=== PATIENT | female | born 1945 | race Caucasian/White ===

== ENCOUNTER → 2023-01-19 13:54 | Outpatient (CLI) | payer MEDICARE, SELFPAY ==
--- NOTE | ~2023-01-19 | XR_ITS ---
EXAM: XR lumbar spine min 4V DATE: 01/19/2023 14:29 HISTORY: M54.41 - Lumbago with sciatica, right side . COMPARISON: None available. FINDINGS: Cholecystomy clips. Left upper quadrant vascular calcification. 5 nonrib-bearing lumbar-typ e vertebral bodies. Pedicles intact. Normal vertebral body alignment. Vertebral body heights preserve d. Degenerative narrowing with marginal osteophytosis at all lumbar levels, severe at L4-5 and L5-S1. Moderate lower lumbar facet sclerosis and hypertrophy with interspinous narrowing. No fracture or di slocation. Incidental note of flowing ossification of the anterior longitudinal ligament thoracic spi ne as can be seen with DISH. IMPRESSION: Multilevel lumbar degenerative disc disease, severe at L4-5 and L5-S1. Moderate lower lum bar facet arthropathy. Reviewed, dictated and finalized at location K. IMPRESSION: Multilevel lumbar degenerative disc disease, severe at L4-5 and L5- S1. Moderate lower lumbar facet arthropathy.
== END ==
PROVIDERS: PCP Family Medicine; Visit Provider Family Medicine
DX: M54.41 Lumbago with sciatica, right side (principal); M51.36 Other intervertebral disc degeneration, lumbar region; M51.37 Other intervertebral disc degeneration, lumbosacral region
CPT/HCPCS: 72110

== ENCOUNTER → 2023-02-16 10:48 | Outpatient (CLI) | payer MEDICARE, SELFPAY ==
--- NOTE | ~2023-02-16 | MR_ITS ---
EXAMINATION: MR lumbar spine wo con DATE: 02/16/2023 11:41 INDICATION: Lumbago sciatica, right-sided. TECHNIQUE: Magnetic resonance imaging (MRI) of the lumbar spine was performed without intravenous con trast. Sequences included sagittal T2-weighted FSE, sagittal T2-weighted FS FSE, sagittal T1-weighted FSE, and axial T2-weighted FSE. COMPARISON: Lumbar spine radiographs 01/19/2023 FINDINGS: There is 7 degrees dextrocurvature of lumbar spine. There is 3 mm retrolisthesis of L3 on L 4. Vertebral body heights are normal. There is mildly decreased disc height at L1-L2 and L2-L3. There is severely decreased disc height from L3-L4 through L5-S1 with endplate remodeling. The distal spin al cord signal intensity is normal. The conus medullaris is at L1. The following disc levels are spec ifically discussed: L1-L2: The disc is bulging. There is mild bilateral facet joint osteoarthritis. There is mild bilater al neural foraminal stenosis. There is mild central canal stenosis. L2-L3: The disc is bulging. There is moderate bilateral facet joint osteoarthritis. There is mild yennifer ateral neural foraminal stenosis. There is mild central canal stenosis. L3-L4: The disc is bulging with superimposed right foraminal and subarticular zone extrusion. There i s severe bilateral facet joint osteoarthritis. There is moderate bilateral neural foraminal stenosis. There is moderate central canal stenosis. There is severe stenosis of right lateral recess. L4-L5: The disc is bulging. There is severe bilateral facet joint osteoarthritis. There is moderate r ight and mild left neural foraminal stenosis. There is mild central canal stenosis. L5-S1: The disc is bulging. There is severe bilateral facet joint osteoarthritis. There is moderate r ight and mild left neural foraminal stenosis. There is mild central canal stenosis. IMPRESSION: 1. Severe lumbar spondylosis. Reviewed, dictated and finalized at location A.
== END ==
PROVIDERS: PCP Family Medicine; Visit Provider Family Medicine
DX: M54.41 Lumbago with sciatica, right side (principal); M47.896 Other spondylosis, lumbar region
CPT/HCPCS: 72148

== ENCOUNTER 2023-03-13 09:28 | Inpatient (IN) | payer MEDICARE, SELFPAY ==
--- NOTE | ~2023-03-13 | MR_ITS ---
MRI of the brain Clinical History: Left-sided numbness and foot drop Technique: Axial and sagittal T1-weighted images were acquired. These were followed by axial T2-weigh bebeto, diffusion weighted, gradient, and FLAIR images. Findings: No acute infarct, intracranial hemorrhage, or mass lesion. There are mild chronic microvasc ular ischemic changes in the periventricular white matter bilaterally. Ventricles and subarachnoid spaces are unremarkable. Orbits are unremarkable. Paranasal sinuses and m astoid air cells are clear. Major intracranial flow voids are grossly intact. Sagittal midline structures are intact. IMPRESSION: No acute infarct, intracranial hemorrhage, or mass lesion. Mild chronic microvascular ischemic changes. Reviewed, dictated and finalized at location .
--- NOTE | ~2023-03-13 | XR_ITS ---
EXAMINATION: XR fluoroscopy no charge INDICATION: L3-4 microdiscectomy TECHNIQUE: A single intraoperative fluoroscopic image is submitted for review. Total fluoroscopic mary e was 1.4 seconds COMPARISON: None available FINDINGS: A lateral fluoroscopic image of the lower lumbar spine demonstrates a surgical instrument p osterior to the L3-4 disc space. Please refer to procedure note for full details. IMPRESSION: 1. Please refer to procedure note for full details. Reviewed, dictated and finalized at location F.
--- NOTE | ~2023-03-13 | XR_ITS ---
EXAMINATION: XR chest 1V portable DATE: 03/13/2023 14:00 INDICATION: Low back pain. TECHNIQUE: A single frontal view of the chest was obtained. COMPARISON: Chest 2 views 01/12/2006 FINDINGS: There is no pneumonia, pleural effusion, or pneumothorax. The heart size is normal. Surgica l clips in the right upper quadrant are likely from cholecystectomy. IMPRESSION: 1. No acute cardiopulmonary disease. Reviewed, dictated and finalized at location A.
[2023-03-13 11:08] VITALS: BP 150/85; PULSE 92; RESP 18; TEMP 36.4; O2SAT 98
--- NOTE | 2023-03-13 13:33 | ED.BACK ---
HPI - Back Pain/Injury General Chief Complaint: Back Pain/Injury Stated Complaint: back pain Time Seen by Provider: 03/13/23 12:18 Source: patient, family and EMS Mode of arrival: EMS Limitations: no limitations History of Present Illness HPI Narrative: 77 years old white female with history of chronic lower back pain. For months/years. Got worse over the last few weeks. Patient had recent MRI of the lumbar spine on February 16, 2023, which showed severe lumbar spondylosis. Patient had a referral to a neurosurgeon, also have a referral to a pain management physician, patient supposed to be on physical therapy but is telling me that she cannot do it because she cannot stand up and walk to go to the car to go to the physical therapy. Currently patient is on gabapentin, ibuprofen, hydrocodone, buspirone, paroxetine. patient denies bowel dysfunction, bladder dysfunction, altered sensation, focal weakness, or saddle numbness, Related Data Allergies Allergy/AdvReac Type Severity Reaction Status Date / Time No Known Allergies Allergy Mild Verified 03/13/23 18:40 Review of Systems Review of Systems: All systems reviewed & are unremarkable except as noted in HPI and below PMFSH Past Medical History Medical History Papilloma of breast (~2013) Surgical History Surgical History History of section Hx of cholecystectomy (~2005) Family History Family History Mother Carcinoma of colon Father Family history of coronary artery disease Other Family history of cardiovascular disease Social History Social History Smoking status: Never smoker Alcohol intake: never Substance use: never Lack of Transportation: No Lack of Food: Never True Current Housing: I Have Housing Concerned About Future Housing: No Difficulty Paying Gas/Electric Bills: No Difficulty Paying for Meds: No Currently Unemployed: No Education: Don't Know Difficulty w/ Childcare or Family Care: No Spiritual care concerns: No Exam Narrative: General appearance: Well-developed, well-nourished, sitting on a wheelchair Skin: Normal color Head: Normocephalic, nontraumatic Eyes: Clear conjunctiva ENT: Oropharynx normal, ears normal, nose normal Neck: Supple, nontender Chest and respiratory: Airway patent, no respiratory distress, no accessory muscle use Heart: Regular rate/rhythm Abdomen: Soft, nontender, no organomegaly, quiet bowel sounds Vascular: Normal peripheral pulses, normal capillary refill. Musculoskeletal: Severe tenderness across the lumbar area mainly mid line, no bruises, no swelling or rash Neurologic: Alert and oriented ?3, negative leg raising test bilateral Course Consultations Consultation #1: Dr. Quintanilla Requested patient to go home to see him in the office tomorrow. Date: 03/13/23 Time: 16:56 Vital Signs Vital signs: Vital Signs Temperature 36.4 C 03/13/23 11:08 Pulse Rate 92 03/13/23 11:08 Respiratory Rate 18 03/13/23 11:08 Blood Pressure 150/85 H 03/13/23 11:08 Pulse Oximetry 98 03/13/23 11:08 Oxygen Delivery Room Air 03/13/23 11:08 Temperature 37.1 C 03/13/23 18:26 Pulse Rate 86 03/13/23 18:26 Respiratory Rate 22 H 03/13/23 18:26 Blood Pressure 186/88 H 03/13/23 19:05 Pulse Oximetry 96 03/13/23 18:26 Oxygen Delivery Room Air 03/13/23 11:08 MDM - Back Pain/Injury MDM Narrative Medical decision making narrative: Patient presents with aggravation of chronic l
[2023-03-13] MEDS: ONDANSETRON INJ 4 MG/2 ML VIAL IV PUSH (14:08)
[2023-03-13] MEDS: SODIUM CHLORIDE 0.9% IV 1,000 ML 999 ML IV CONT (14:08)
[2023-03-13] MEDS: HYDROmorphone HCL INJ (*CRX) 1 MG/ML SYR 0.5 MG IV PUSH ×3 (14:09→21:28)
[2023-03-13 14:16] LABS: Basophils Absolute Auto 0.1 K/mm3 (0.0-0.1); Basophils Percent Auto 0.7 % (0.2-1.2); Eosinophils Absolute Auto 0.4 K/mm3 (0-0.3); Eosinophils Percent Auto 5.8 % (0-4.4); Immature Granulocyte Absolute 0.05 K/mm3 (0.00-0.031); Immature Granulocyte Percent A 0.7 % (0-0.5); Lymphocytes Absolute Auto 1.74 K/mm3 (0.9-3.2); Lymphocytes Percent Auto 22.8 % (18.3-44.2); Mean Corpuscular HGB Conc 32.5 g/dl (32-36); Mean Corpuscular Volume 95.5 fl (80-100); Monocytes Absolute Auto 0.5 K/mm3 (0.1-0.6); Monocytes Percent Auto 5.9 % (2.6-8.5); Neutrophils Absolute Auto 4.9 K/mm3 (1.3-6.7); Neutrophils Percent Auto 64.1 % (45.5-73.1); Platelet Count Result 423 k/mm3 (150-375); Red Blood Count 4.19 M/mm3 (4.2-5.4); Red Cell Distribution Width 13.1 % (11.5-14.5); White Blood Count 7.6 K/mm3 (4.5-10.0)
--- NOTE | 2023-03-13 14:20 | PC.NURSE ---
pt wheeled to bathroom and with help of 2 person assist pt able to use bathroom to collect ua specimen. pt appears to have muscle spasms with any turning of torso. pt does note some relief of pain s/p administration of dilaudid.
[2023-03-13 14:29] LABS: Alanine Aminotransferase 26 U/L (6-35); Alkaline Phosphatase 100 U/L (38-126); Anion Gap 10 mmol/L (8-16); Aspartate Amino Transferase 25 U/L (14-36); Bilirubin,Total 0.5 mg/dL (0.2-1.3); Blood Urea Nitrogen 14 mg/dL (7-17); CRP 0.7 mg/dL (<1.0); Calcium 9.3 mg/dL (8.4-10.2); Carbon Dioxide 25 mmol/L (22-30); Chloride 102 mmol/L (98-107); Estimated CRCL calculation 52 ml/min; Estimated Glomerular Filt Rate > 60; Glucose 199 mg/dL (65-110); Potassium 3.7 mmol/L (3.4-5.0); Sodium 137 mmol/L (137-145)
[2023-03-13 14:45] LABS: Creatine Kinase 114 U/L (30-135)
[2023-03-13 14:48] LABS: Erythrocyte Sedimentation Rate 55 mm/hr (0-20)
[2023-03-13 14:51] LABS: Appearance Urine Clear (Clear); Bacteria Urine None Seen /hpf; Bilirubin Urine Negative (Negative); Blood Urine Negative (Negative); Color Urine Yellow (Yellow); Glucose Urine UA Negative (Negative); Ketones Urine Trace mg/dL (Negative); Leukocyte Esterase Ur Negative LEU/UL (Negative); Nitrate Urine Negative (Negative); Protein Urine 1+ mg/dL (Negative); RBC Urine 0-2 /hpf (0-2); Squamous Epithelial Cell Urine Occasional /hpf (Few); Urobilinogen Urine 0.2 mg/dL (<2.0); WBC Urine 0-5 /hpf
[2023-03-13 14:57] LABS: Add Urine Microscopic? YES
--- NOTE | 2023-03-13 15:49 | PCCCNOTE ---
Called to ED for temporary snf placement due to pt unable to ambulate due to extreme back pain. Pt has [facility] and no qualifying 3 night stay. Pt and granddaughter informed that [facility] would only cover the PT/OT portion of SNF and rooom and board would need to be covered by pt. Pt understands and is agreeable to this. [facility] at [facility] contacted and info sent. Room rate is 411/day and [id number] per month. Lance stated that she would contact me back and am awaiting. Niyah at [facility] has only semi private room available at 260/day. Private suite cost is 275/day but none available at this time. Pt would like [facility]. Awaiting call back by Lance.
[2023-03-13 17:38] VITALS: BP 180/65
[2023-03-13] MEDS: SODIUM CHLORIDE 0.9% IV 1,000 ML 100 ML IV CONT (18:12)
[2023-03-13 18:15] VITALS: BMI 34.4
[2023-03-13 18:26] VITALS: BP 205/88; PULSE 86; RESP 22; TEMP 37.1; O2SAT 96
--- NOTE | 2023-03-13 18:29 | ADMGEN ---
This patient, Izabela Crook, was admitted to 3 [facility] Surg Room 316-01. Patient/family oriented to hospital policies and general routines including ID bracelet, bed and alarms, visiting hours, pain management, procedures, bathroom and other care routines, personal items, smoking policy, room service/diet, and visiting hours. Information on how to activate the Rapid Response Team has been discussed. Patient/Family are encouraged to report perceived risks to care and to ask questions if they do not understand what they are told or what they should do. Report from Lidia in ER.
[2023-03-13 19:05] VITALS: BP 186/88
[2023-03-13] MEDS: busPIRone HCL 5 MG TABLET 15 MG PO (20:53)
[2023-03-13] MEDS: PARoxetine 20 MG TABLET PO (20:53)
[2023-03-13] MEDS: HYDROcodone/acetaminophen (*CRX) 7.5-325 MG TABLET 1 TAB PO (20:53)
[2023-03-13 21:06] VITALS: BP 184/78; PULSE 83; RESP 14; TEMP 36.6; O2SAT 100
--- NOTE | 2023-03-14 00:28 | PM.IMHP ---
H&P: HPI History of Present Illness Date/Time: 03/13/23 19:30 Chief Complaint: Back pain. Narrative: This is a very pleasant 77-year-old female who has been pretty healthy with reported history of GERD, anxiety, and chronic back pain who presented to the emergency department via private vehicle from home for evaluation of back pain. The patient provides the following history. Over the years she has had intermittent issues with her low back however it has gotten worse the last several months with no obvious exacerbating event. Initially she tried conservative treatment including anti-inflammatories, ice packs, and physical therapy. She saw a chiropractor for awhile as well. Muscle relaxers have not been of much benefit. More recently she was started on gabapentin and hydrocodone which helps take the edge off. Unfortunately over the past 1 week her pain has worsened significantly and she now has radicular pain down the legs. She can barely get herself up to stand and is not really able to walk due to the pain. MRI done within the last month or so and she was referred to neurosurgery and she has an appointment with them sometime later this week. She came in today due to the inability to perform usual activities of daily living. She denies saddle anesthesia, urine retention, fecal incontinence, altered sensation, and focal weakness. She also denies fever, chills, sweats, nausea, vomiting, dysuria, hematuria. Review of Systems Review of Systems: Twelve systems were reviewed and are negative except for as per HPI. [facility] Past Medical History Medical History Papilloma of breast (~2013) Surgical History Surgical History History of section Hx of cholecystectomy (~2005) Family History Family History Mother Carcinoma of colon Father Family history of coronary artery disease Other Family history of cardiovascular disease Social History Social History Smoking status: Never smoker Alcohol intake: never Substance use: never Lack of Transportation: No Lack of Food: Never True Current Housing: I Have Housing Concerned About Future Housing: No Difficulty Paying Gas/Electric Bills: No Difficulty Paying for Meds: No Currently Unemployed: No Education: Don't Know Difficulty w/ Childcare or Family Care: No Spiritual care concerns: No Meds Home Medications and Allergies Home Medications Medication Instructions Recorded Confirmed Type triamcinolone acetonide 0.1 % See Rx Instructions .Route 03/02/22 03/13/23 Rx topical cream .COMPLEX #80 grams buspirone 15 mg tablet See Rx Instructions .Route 04/25/22 03/13/23 Rx .COMPLEX #180 tabs paroxetine HCl 20 mg tablet See Rx Instructions .Route 06/09/22 03/13/23 Rx .COMPLEX #90 tabs gabapentin 300 mg capsule 300 mg PO TID #90 caps 02/27/23 03/13/23 Rx ibuprofen 600 mg tablet 600 mg PO TID PRN pain #60 tabs 02/27/23 03/13/23 Rx hydrocodone 7.5 mg-acetaminophen 1 tablet PO Q6H PRN pain #60 tabs 03/02/23 03/13/23 Rx 325 mg tablet Allergies Allergy/AdvReac Type Severity Reaction Status Date / Time No Known Allergies Allergy Mild Verified 03/13/23 18:40 Vital Signs Vital Signs - 24 hr 03/13/23 11:08 03/13/23 17:38 03/13/23 18:26 Temperature 97.6 F 98.7 F Pulse Rate 92 86 Respiratory Rate 18 22 H Blood Pressure 150/85 H 180/65 H 205/88 H Pulse Oximetry 98 96 Oxygen Delivery Room Air 03/13/23 19:05 03/13/23 21:06 Temperature 97.8 F Pulse Rate 83 Respiratory Rate 14 Blood Pressure 186/88 H 184/78 H Pulse Oximetry 100 Oxygen Delivery Exam Narrative: General: Well-developed, nontoxic-appearing female in the semi-Omalley position in bed. Weight: 85.6 kg. BMI: 34.5. HEENT:
[2023-03-14] MEDS: HYDROmorphone HCL INJ (*CRX) 1 MG/ML SYR 0.5 MG IV PUSH ×3 (01:41→08:10)
[2023-03-14] MEDS: HYDROcodone/acetaminophen (*CRX) 7.5-325 MG TABLET 1 TAB PO ×5 (02:06→22:13)
[2023-03-14] MEDS: CYCLOBENZAPRINE HCL 10 MG TABLET PO ×3 (03:10→21:19)
[2023-03-14 05:42] VITALS: BP 181/97; PULSE 96; RESP 24; TEMP 36.6; O2SAT 99
--- NOTE | 2023-03-14 08:59 | PM.IMPN ---
Progress Note: A&P Assessment and Plan (1) Intractable back pain: Code(s): M54.9 - Dorsalgia, unspecified Status: Acute Assessment and Plan: Acute on chronic presentation. Over the past week it has progressed to the point where she can no longer preform ADLs. Had neurosurgery consult scheduled. Recent MRI spine wo contrast from 01/2023 shows severe lumbar spondylosis. Neurosurgery consulted while admitted. Recommendations are appreciated. Scheduled pain medication norco 7.5 mg, prn ibuprofen, prn flexeril and prn dilaudid for breakthrough. Scheduled gabapentin. (2) Elevated blood pressure reading: Code(s): R03.0 - Elevated blood-pressure reading, without diagnosis of hypertension Status: Acute Assessment and Plan: Blood pressures normally run SBP 120-130's Elevated likely due to pain response. Adjusting pain medications. Continue to monitor. PRN hydralazine for SBP greater than 180. (3) Unable to ambulate: Code(s): R26.2 - Difficulty in walking, not elsewhere classified Status: Acute Assessment and Plan: PT/OT consult and recommendations are appreciated. Activity is ad james with assistance. (4) Generalized anxiety disorder: Code(s): F41.1 - Generalized anxiety disorder Status: Acute Assessment and Plan: Stable on paxil and buspirone Plan awaiting further rec's from neurosurgery adjusting pain medications for better control Subjective Date/time seen: 03/14/23 08:59 Interval history: HPI obtained from chart, This is a very pleasant 77-year-old female who has been pretty healthy with reported history of GERD, anxiety, and chronic back pain who presented to the emergency department via private vehicle from home for evaluation of back pain. The patient provides the following history. Over the years she has had intermittent issues with her low back however it has gotten worse the last several months with no obvious exacerbating event. Initially she tried conservative treatment including anti-inflammatories, ice packs, and physical therapy. She is such a chiropractor for awhile as well. Muscle relaxers have not been of much benefit. More recently she was started on gabapentin and hydrocodone which helps take the edge off. Unfortunately over the past 1 week her pain has worsened significantly and she now has radicular pain down the legs. She can barely get herself up to stand and is not really able to walk due to the pain. She had an MRI done within the last month or so and she was referred to neurosurgery and she has an appointment with them sometime later this week. As she is not really even able to function or complete normal activities of ADLs, she came in for evaluation today. She denies saddle anesthesia, bladder dysfunction, fecal incontinence, altered sensation, and focal weakness. She also denies fever, chills, sweats, nausea, vomiting, dysuria, hematuria. 03/14: Patient seen resting in bed. She appears tired and unwell. She says that her pain is constant to her lower back and radiates to her lower extremities. She feels like her left foot is flexing towards her midline. She also has noticed that her pinky and ring finger on her left hand have some numbness and tingling present and this is new. She is voiding without difficulty and having bowel movements. Denies saddle anesthesia. She is in too much pain to work with therapy at this time. I made some adjustments to her pain medications. Awaiting neurosurgery's recommendations. Review of Systems Review of Systems: All systems reviewed & are unremarkable except as noted in HPI and below Exam Narrative: General: tired, ill appearing, well nourished, appears stated age. HEENT: normocephalic, atraumatic. Mucous membranes moist. EOMI, PERRLA, bilateral sclera anicteric, no conjunctival injection. Neck supple without JVD, lymphadenopathy, or bruit. Respiratory: clear to auscultation bilaterally. No ra
[2023-03-14] MEDS: busPIRone HCL 5 MG TABLET 15 MG PO ×2 (09:19→20:10)
[2023-03-14] MEDS: IBUPROFEN 600 MG TABLET PO (13:01)
[2023-03-14 13:13] VITALS: BP 178/76
[2023-03-14 13:57] VITALS: BP 178/76; PULSE 98; RESP 18; TEMP 37.1; O2SAT 95
[2023-03-14 17:07] LABS: Basophils Percent Auto 0.4 % (0.2-1.2); Eosinophils Absolute Auto 0.1 K/mm3 (0-0.3); Eosinophils Percent Auto 0.9 % (0-4.4); Hematocrit 37.9 % (37.0-47.0); Hemoglobin 12.2 g/dL (12.0-15.0); Immature Granulocyte Absolute 0.05 K/mm3 (0.00-0.031); Immature Granulocyte Percent A 0.6 % (0-0.5); Lymphocytes Percent Auto 11.5 % (18.3-44.2); Mean Corpuscular HGB Conc 32.2 g/dl (32-36); Mean Corpuscular Volume 96.4 fl (80-100); Monocytes Absolute Auto 0.5 K/mm3 (0.1-0.6); Monocytes Percent Auto 6.2 % (2.6-8.5); Neutrophils Absolute Auto 6.3 K/mm3 (1.3-6.7); Neutrophils Percent Auto 80.4 % (45.5-73.1); Platelet Count Result 350 k/mm3 (150-375); Red Blood Count 3.93 M/mm3 (4.2-5.4); Red Cell Distribution Width 12.9 % (11.5-14.5); White Blood Count 7.9 K/mm3 (4.5-10.0)
[2023-03-14 17:33] LABS: Anion Gap 6 mmol/L (8-16); Blood Urea Nitrogen 11 mg/dL (7-17); CRP 1.3 mg/dL (<1.0); Calcium 8.9 mg/dL (8.4-10.2); Carbon Dioxide 28 mmol/L (22-30); Chloride 103 mmol/L (98-107); Estimated CRCL calculation 61 ml/min; Estimated Glomerular Filt Rate > 60; Glucose 179 mg/dL (65-110); Sodium 137 mmol/L (137-145)
[2023-03-14] MEDS: HYDROmorphone HCL INJ (*CRX) 1 MG/ML SYR IV PUSH ×2 (20:09→23:12)
[2023-03-14] MEDS: GABAPENTIN 300 MG CAPSULE PO (20:10)
[2023-03-14] MEDS: PARoxetine 20 MG TABLET PO (20:10)
[2023-03-14 22:00] VITALS: BP 159/66; PULSE 87; RESP 16; TEMP 36.2; O2SAT 93
[2023-03-15] MEDS: HYDROcodone/acetaminophen (*CRX) 7.5-325 MG TABLET 1 TAB PO ×5 (02:16→22:30)
[2023-03-15 06:00] VITALS: BP 135/72; PULSE 82; RESP 18; TEMP 35.7; O2SAT 93
[2023-03-15 06:45] LABS: Basophils Absolute Auto 0.1 K/mm3 (0.0-0.1); Basophils Percent Auto 0.7 % (0.2-1.2); Eosinophils Absolute Auto 0.4 K/mm3 (0-0.3); Eosinophils Percent Auto 5.3 % (0-4.4); Hematocrit 37.3 % (37.0-47.0); Hemoglobin 11.9 g/dL (12.0-15.0); Immature Granulocyte Absolute 0.05 K/mm3 (0.00-0.031); Immature Granulocyte Percent A 0.6 % (0-0.5); Lymphocytes Absolute Auto 2.37 K/mm3 (0.9-3.2); Lymphocytes Percent Auto 28.4 % (18.3-44.2); Mean Corpuscular HGB Conc 31.9 g/dl (32-36); Mean Corpuscular Hemoglobin 30.9 pg (26-34); Mean Corpuscular Volume 96.9 fl (80-100); Monocytes Absolute Auto 0.6 K/mm3 (0.1-0.6); Monocytes Percent Auto 7.7 % (2.6-8.5); Neutrophils Absolute Auto 4.8 K/mm3 (1.3-6.7); Neutrophils Percent Auto 57.3 % (45.5-73.1); Platelet Count Result 355 k/mm3 (150-375); Red Blood Count 3.85 M/mm3 (4.2-5.4); White Blood Count 8.4 K/mm3 (4.5-10.0)
[2023-03-15 06:58] LABS: Anion Gap 4 mmol/L (8-16); Blood Urea Nitrogen 13 mg/dL (7-17); CRP 1.7 mg/dL (<1.0); Calcium 9.2 mg/dL (8.4-10.2); Carbon Dioxide 32 mmol/L (22-30); Chloride 101 mmol/L (98-107); Estimated CRCL calculation 61 ml/min; Estimated Glomerular Filt Rate > 60; Glucose 133 mg/dL (65-110); Potassium 3.5 mmol/L (3.4-5.0); Sodium 137 mmol/L (137-145)
[2023-03-15] MEDS: GABAPENTIN 300 MG CAPSULE PO ×3 (08:44→17:37)
[2023-03-15] MEDS: busPIRone HCL 5 MG TABLET 15 MG PO ×2 (08:44→20:40)
[2023-03-15 08:45] VITALS: O2SAT 94
[2023-03-15] MEDS: HYDROmorphone HCL INJ (*CRX) 1 MG/ML SYR IV PUSH (08:45)
--- NOTE | 2023-03-15 09:33 | PM.IMPN ---
Progress Note: A&P Assessment and Plan (1) Intractable back pain: Code(s): M54.9 - Dorsalgia, unspecified Status: Acute Assessment and Plan: Acute on chronic presentation. Over the past week it has progressed to the point where she can no longer preform ADLs. Had outpatient neurosurgery consult scheduled. Recent MRI spine wo contrast from 01/2023 shows severe lumbar spondylosis. Neurosurgery consulted while admitted. Recommendations are appreciated. Scheduled pain medication norco 7.5 mg, prn ibuprofen, prn flexeril and prn dilaudid for breakthrough. Scheduled gabapentin. (2) Elevated blood pressure reading: Code(s): R03.0 - Elevated blood-pressure reading, without diagnosis of hypertension Status: Acute Assessment and Plan: Blood pressure reviewed on 03/15, stable (3) Unable to ambulate: Code(s): R26.2 - Difficulty in walking, not elsewhere classified Status: Acute Assessment and Plan: Patient unable to participate with PT and OT partially related to right lumbar radicular pain and partially related to left lower extremity footdrop and unable to ambulate due to this. Stroke workup initiated with MRI. If positive will next CTA head neck. Symptom onset at least 6 days ago so no acute intervention thus Code Stroke called. (4) Generalized anxiety disorder: Code(s): F41.1 - Generalized anxiety disorder Status: Acute Assessment and Plan: Stable on paxil and buspirone, Ativan for MRI (5) Foot drop, left: Code(s): M21.372 - Foot drop, left foot Status: Acute Assessment and Plan: Patient reports present for at least a week, unable to ambulate. MRI brain negative for Stroke. Time Spent With Patient Time with patient: Greater than 35 minutes Subjective Date/time seen: 03/15/23 09:15 Interval history: Patient reports right low back pain with radiculopathy down the right leg that comes and goes and spasms and worsening over the last few months. Patient additionally complains of left foot drop left foot numbness left hand numbness and is noted to have left corner of the mouth droop no prior history of CVA. Patient reports that the left lower extremity symptoms started to get bad 6 days ago and have contributed to her inability to ambulate or participate with therapy. Patient denies saddle paresthesia denies bowel or bladder incontinence. Negative straight leg raise bilaterally. She does have MRI of the lumbar spine showing severe lumbar spondylosis, neuro surgery to see tomorrow since patient is not able to be discharged home today. Patient denies coughing or choking or difficulty. She is uncertain if the slight left corner of the mouth facial droop is chronic or new. Review of Systems Review of Systems: All systems reviewed & are unremarkable except as noted in HPI and below Exam Narrative: General: well nourished, appears stated age. No acute distress. HEENT: normocephalic, atraumatic. Mucous membranes moist. EOMI, PERRLA, bilateral sclera anicteric, no conjunctival injection. Neck supple without JVD or lymphadenopathy Respiratory: clear to auscultation bilaterally. No rales/rhonic/wheezes. Cardiovascular: Regular rate and rhythm, normal S1-S2 upon auscultation. No murmurs, rubs, or clicks. PMI is nondisplaced, capillary re-fill less than 3 second. Abdomen: Soft, round, no pulsatile masses, non-distended and non-tender. No rebound, no guarding. No CVA tenderness, no hepatosplenomegaly. Bowel sounds present to all four quadrants. No high pitch or tinkling sounds, resonant to percussion. Extremities: No cyanosis, clubbing, or edema present. Pulses are palpable 2/2. Negative straight leg raise bilaterally, noted left foot drop that patient has to use her right foot to move into correct position. Numbness reported to left lower extremity and left hand. Prompt leg drift against gravity. No arm drift to and numbness is isolated to 4th and 5th d
[2023-03-15] MEDS: LORazepam INJ (*CRX) 2 MG/ML VIAL 1 MG IV PUSH (11:09)
--- NOTE | 2023-03-15 11:15 | PCPTNOTE ---
Attempted PT evaluation, pt off the unit for testing. Will follow.
--- NOTE | 2023-03-15 11:54 | PC.NURSE ---
Patient returned from MRI drowsy from pre medications, does not wish to take [place] at this time.
[2023-03-15 12:02] LABS: Glucose Point of Care 136 mg/dl (65-105)
--- NOTE | 2023-03-15 13:13 | PCPTNOTE ---
Awaiting neurosurgery consult prior to PT evaluation.
--- NOTE | 2023-03-15 13:16 | PCOTNOTE ---
Awaiting neurosurgery consult prior to OT evaluation.
[2023-03-15 14:00] VITALS: BP 155/78; PULSE 96; RESP 16; TEMP 35.9; O2SAT 95
[2023-03-15] MEDS: PARoxetine 20 MG TABLET PO (20:40)
[2023-03-15 21:31] VITALS: BP 165/87; PULSE 100; RESP 16; TEMP 36.1; O2SAT 95
[2023-03-15] MEDS: CYCLOBENZAPRINE HCL 10 MG TABLET PO (22:30)
[2023-03-16] MEDS: HYDROcodone/acetaminophen (*CRX) 7.5-325 MG TABLET 1 TAB PO ×6 (02:55→22:50)
[2023-03-16 04:58] VITALS: BP 158/74; PULSE 91; RESP 20; TEMP 36.2; O2SAT 93
[2023-03-16 06:55] LABS: Basophils Absolute Auto 0.1 K/mm3 (0.0-0.1); Eosinophils Absolute Auto 0.6 K/mm3 (0-0.3); Hematocrit 36.2 % (37.0-47.0); Hemoglobin 11.8 g/dL (12.0-15.0); Immature Granulocyte Absolute 0.04 K/mm3 (0.00-0.031); Immature Granulocyte Percent A 0.6 % (0-0.5); Lymphocytes Absolute Auto 1.79 K/mm3 (0.9-3.2); Lymphocytes Percent Auto 25.1 % (18.3-44.2); Mean Corpuscular HGB Conc 32.6 g/dl (32-36); Mean Corpuscular Hemoglobin 30.6 pg (26-34); Mean Platelet Volume 8.8 fl (7.4-10.4); Monocytes Absolute Auto 0.6 K/mm3 (0.1-0.6); Neutrophils Absolute Auto 4.1 K/mm3 (1.3-6.7); Neutrophils Percent Auto 57.3 % (45.5-73.1); Platelet Count Result 323 k/mm3 (150-375); Red Blood Count 3.85 M/mm3 (4.2-5.4); Red Cell Distribution Width 12.6 % (11.5-14.5); White Blood Count 7.1 K/mm3 (4.5-10.0)
[2023-03-16 07:07] LABS: Anion Gap 1 mmol/L (8-16); Blood Urea Nitrogen 15 mg/dL (7-17); Calcium 8.8 mg/dL (8.4-10.2); Carbon Dioxide 34 mmol/L (22-30); Chloride 101 mmol/L (98-107); Estimated CRCL calculation 54 ml/min; Estimated Glomerular Filt Rate > 60; Glucose 134 mg/dL (65-110); Potassium 3.6 mmol/L (3.4-5.0); Sodium 136 mmol/L (137-145)
[2023-03-16] MEDS: busPIRone HCL 5 MG TABLET 15 MG PO ×2 (08:55→20:06)
[2023-03-16] MEDS: GABAPENTIN 300 MG CAPSULE PO ×3 (08:55→16:57)
[2023-03-16] MEDS: HYDROmorphone HCL INJ (*CRX) 1 MG/ML SYR IV PUSH ×2 (09:34→19:50)
[2023-03-16] MEDS: CYCLOBENZAPRINE HCL 10 MG TABLET PO (11:38)
--- NOTE | 2023-03-16 11:46 | PCOTNOTE ---
Attempted to see pt. for occupational therapy evaluation. Pt. declined to participate at this time due to pain and emotional overwhelm, agreeable to later time. Nursing aware. Following.
--- NOTE | 2023-03-16 11:47 | PM.IMPN ---
Progress Note: A&P Assessment and Plan (1) Intractable back pain: Code(s): M54.9 - Dorsalgia, unspecified Status: Acute Assessment and Plan: Acute on chronic presentation. Over the past week it has progressed to the point where she can no longer preform ADLs. Had outpatient neurosurgery consult scheduled. Recent MRI spine wo contrast from 01/2023 shows severe lumbar spondylosis. Neurosurgery consulted while admitted. Recommendations are appreciated. Scheduled pain medication norco 7.5 mg, prn ibuprofen, prn flexeril and prn dilaudid for breakthrough. Scheduled gabapentin. 03/16: Patient evaluated by Neurosurgery, awaiting recommendations, family under the impression that patient will have surgery tomorrow. (2) Elevated blood pressure reading: Code(s): R03.0 - Elevated blood-pressure reading, without diagnosis of hypertension Status: Acute Assessment and Plan: Blood pressure reviewed on 03/16, stable (3) Unable to ambulate: Code(s): R26.2 - Difficulty in walking, not elsewhere classified Status: Acute Assessment and Plan: Patient unable to participate with PT and OT partially related to right lumbar radicular pain and partially related to left lower extremity footdrop and unable to ambulate due to this. Stroke workup initiated with MRI. If positive will next CTA head neck. Symptom onset at least 6 days ago so no acute intervention thus Code Stroke not called. 03/16: Brain MRI was negative. Patient's family states that the patient told outpatient physical therapy that she could not dorsiflex her left foot and was reportedly told ?just keep working on it.? (4) Generalized anxiety disorder: Code(s): F41.1 - Generalized anxiety disorder Status: Acute Assessment and Plan: Stable on paxil and buspirone, Ativan for MRI (5) Foot drop, left: Code(s): M21.372 - Foot drop, left foot Status: Acute Assessment and Plan: Patient reports present for at least a week, unable to ambulate. MRI brain negative for Stroke. Plan Appreciate neurosurgery consult and recommendations. PT and OT working with the patient was able to transfer to a chair today with much pain involved Patient will likely need rehabilitation/SNF upon discharge Time Spent With Patient Time with patient: 25 - 35 minutes Subjective Date/time seen: 03/16/23 11:47 Interval history: Patient still complaining severe right leg pain but she was able to work with therapy today to mobilize to the chair with significant difficulty. Patient evaluated by neuro surgery and reported plan is possible surgery for protruding disc, possibly tomorrow. Final plan is still pending. Patient still has left foot numbness and footdrop unable to dorsiflex. Patient no longer complaining of left upper extremity numbness or appearance of facial droop. Patient's confirms that her face does not look droopy at all. Further information gathered from daughter states that the patient told outpatient physical therapy that her left foot was unable to dorsiflex and she was told to just keep working on it. This was a couple weeks ago. Review of Systems Review of Systems: All systems reviewed & are unremarkable except as noted in HPI and below Exam Narrative: General: well nourished, appears stated age. No acute distress. HEENT: normocephalic, atraumatic. Mucous membranes moist. EOMI, PERRLA, bilateral sclera anicteric, no conjunctival injection. Neck supple without JVD or lymphadenopathy Respiratory: clear to auscultation bilaterally. No rales/rhonic/wheezes. Cardiovascular: Regular rate and rhythm, normal S1-S2 upon auscultation. No murmurs, rubs, or clicks. PMI is nondisplaced, capillary re-fill less than 3 second. Abdomen: Soft, round, no pulsatile masses, non-distended and non-tender. No rebound, no guarding. No CVA tenderness, no hepatosplenomegaly. Bowel sounds present to all four quadrants. No high pi
[2023-03-16 14:00] VITALS: BP 133/71; PULSE 101; RESP 18; TEMP 36.7; O2SAT 96
[2023-03-16] MEDS: polyethylene glycoL 3350 17 GM POWD.PACK PO (14:47)
[2023-03-16] MEDS: PARoxetine 20 MG TABLET PO (20:06)
[2023-03-16 21:23] VITALS: BP 134/69; PULSE 91; RESP 13; TEMP 36.8; O2SAT 90
[2023-03-17] VITALS (16 sets, daily range): BP systolic 117–198; BP diastolic 72–103; PULSE 94–113; RESP 12–20; TEMP 35.8–37.1; O2SAT 90–100
[2023-03-17] MEDS: HYDROcodone/acetaminophen (*CRX) 7.5-325 MG TABLET 1 TAB PO ×4 (03:17→23:08)
[2023-03-17] MEDS: CYCLOBENZAPRINE HCL 10 MG TABLET PO ×2 (04:40→20:56)
[2023-03-17] MEDS: HYDROmorphone HCL INJ (*CRX) 1 MG/ML SYR IV PUSH ×2 (04:40→11:53)
[2023-03-17 06:49] LABS: Basophils Absolute Auto 0.1 K/mm3 (0.0-0.1); Basophils Percent Auto 0.8 % (0.2-1.2); Eosinophils Absolute Auto 0.6 K/mm3 (0-0.3); Eosinophils Percent Auto 7.8 % (0-4.4); Hemoglobin 12.3 g/dL (12.0-15.0); Immature Granulocyte Absolute 0.07 K/mm3 (0.00-0.031); Immature Granulocyte Percent A 0.9 % (0-0.5); Lymphocytes Absolute Auto 1.84 K/mm3 (0.9-3.2); Lymphocytes Percent Auto 23.1 % (18.3-44.2); Mean Corpuscular HGB Conc 32.4 g/dl (32-36); Mean Corpuscular Hemoglobin 31.5 pg (26-34); Mean Corpuscular Volume 97.2 fl (80-100); Monocytes Absolute Auto 0.6 K/mm3 (0.1-0.6); Monocytes Percent Auto 7.8 % (2.6-8.5); Neutrophils Absolute Auto 4.8 K/mm3 (1.3-6.7); Neutrophils Percent Auto 59.6 % (45.5-73.1); Platelet Count Result 350 k/mm3 (150-375); Red Blood Count 3.91 M/mm3 (4.2-5.4); Red Cell Distribution Width 13.2 % (11.5-14.5)
[2023-03-17 07:03] LABS: Anion Gap 3 mmol/L (8-16); Blood Urea Nitrogen 24 mg/dL (7-17); Calcium 9.1 mg/dL (8.4-10.2); Carbon Dioxide 35 mmol/L (22-30); Chloride 97 mmol/L (98-107); Estimated CRCL calculation 48 ml/min; Estimated Glomerular Filt Rate > 60; Glucose 157 mg/dL (65-110); Potassium 4.5 mmol/L (3.4-5.0); Sodium 135 mmol/L (137-145)
[2023-03-17] MEDS: busPIRone HCL 5 MG TABLET 15 MG PO ×2 (08:36→20:56)
[2023-03-17] MEDS: GABAPENTIN 300 MG CAPSULE PO ×2 (08:36→18:28)
--- NOTE | 2023-03-17 10:45 | PM.IMPN ---
Progress Note: A&P Assessment and Plan (1) Intractable back pain: Code(s): M54.9 - Dorsalgia, unspecified Status: Acute Assessment and Plan: Acute on chronic presentation. Over the past week it has progressed to the point where she can no longer preform ADLs. Had outpatient neurosurgery consult scheduled. Recent MRI spine wo contrast from 01/2023 shows severe lumbar spondylosis. Neurosurgery consulted while admitted. Recommendations are appreciated. Scheduled pain medication norco 7.5 mg, prn ibuprofen, prn flexeril and prn dilaudid for breakthrough. Scheduled gabapentin. 03/16: Patient evaluated by Neurosurgery, awaiting recommendations, family under the impression that patient will have surgery tomorrow. 03/17: Patient to the operating room today (2) Elevated blood pressure reading: Code(s): R03.0 - Elevated blood-pressure reading, without diagnosis of hypertension Status: Acute Assessment and Plan: Blood pressure reviewed on 03/17, stable (3) Unable to ambulate: Code(s): R26.2 - Difficulty in walking, not elsewhere classified Status: Acute Assessment and Plan: Patient unable to participate with PT and OT partially related to right lumbar radicular pain and partially related to left lower extremity footdrop and unable to ambulate due to this. Stroke workup initiated with MRI. If positive will next CTA head neck. Symptom onset at least 6 days ago so no acute intervention thus Code Stroke not called. 03/16: Brain MRI was negative. Patient's family states that the patient told outpatient physical therapy that she could not dorsiflex her left foot and was reportedly told ?just keep working on it.? 03/17: Unchanged (4) Generalized anxiety disorder: Code(s): F41.1 - Generalized anxiety disorder Status: Acute Assessment and Plan: Stable on paxil and buspirone (5) Foot drop, left: Code(s): M21.372 - Foot drop, left foot Status: Acute Assessment and Plan: Patient reports present for at least a week, unable to ambulate. MRI brain negative for Stroke. Plan Patient going to the operating room per Neurosurgery today. PT and OT will continue to be needed. Patient will likely need rehabilitation/SNF upon discharge Time Spent With Patient Time with patient: 25 - 35 minutes Subjective Date/time seen: 03/17/23 10:45 Interval history: Patient reports bilateral leg pain and weakness she states that her right foot is beginning to get as bad as her left foot. Patient is on the operating room schedule for procedure this afternoon with Neurosurgery. Review of Systems Review of Systems: All systems reviewed & are unremarkable except as noted in HPI and below Exam Narrative: General: well nourished, appears stated age. No acute distress. HEENT: normocephalic, atraumatic. Mucous membranes moist. EOMI, PERRLA, bilateral sclera anicteric, no conjunctival injection. Neck supple without JVD or lymphadenopathy Respiratory: clear to auscultation bilaterally. No rales/rhonic/wheezes. Cardiovascular: Regular rate and rhythm, normal S1-S2 upon auscultation. No murmurs, rubs, or clicks. PMI is nondisplaced, capillary re-fill less than 3 second. Abdomen: Soft, round, no pulsatile masses, non-distended and non-tender. No rebound, no guarding. No CVA tenderness, no hepatosplenomegaly. Bowel sounds present to all four quadrants. No high pitch or tinkling sounds, resonant to percussion. Extremities: No cyanosis, clubbing, or edema present. Pulses are palpable 2/2. Negative straight leg raise bilaterally, noted left foot drop that patient has to use her right foot to move into correct position. Patient unable to dorsiflex left foot and it is turned inward. Numbness reported to left foot. Prompt leg drift against gravity. Neuro: Alert and orientated x 4. PERRLA. Cranial nerves 2-12 intact without focal deficit. Slight resting left corner of mouth facial droop appa
[2023-03-17] MEDS: LACTATED RINGERS 1,000 ML 30 ML IV CONT (11:15)
[2023-03-17] MEDS: fentaNYL CITRATE INJ (*CRX) 100 MCG/2 ML VIAL 50 MCG IV PUSH ×2 (11:36→11:39)
--- NOTE | 2023-03-17 11:52 | WPDANESEPPF ---
Anes - Initial Pre Proc Eval Procedure: Operation Date: 03/17/23 12:00 Proposed Procedures p Right L3-4 Microdiscectomy - Bruno Ignacio MD Date/Time: 03/17/23 11:52 Surgeon: Randal Appiah MD Pre Op Diagnosis: Chronic Lower Back Pain/Unable to Ambulate w/o Ass Patient Data Age: 77 Gender: F Height: 1.57 m Weight: 85.6 kg Last Vital Signs Temp 36.8 C 03/17/23 11:15 Pulse 106 H 03/17/23 11:15 Resp 16 03/17/23 11:15 BP 174/93 H 03/17/23 11:15 Pulse Ox 100 03/17/23 11:15 O2 Del Method Room Air 03/17/23 11:15 Allergies Allergy/AdvReac Type Severity Reaction Status Date / Time No Known Allergies Allergy Mild Verified 03/13/23 18:40 Home Medications Medication Instructions Recorded Confirmed Type triamcinolone acetonide 0.1 % See Rx Instructions .Route 03/02/22 03/13/23 Rx topical cream .COMPLEX #80 grams buspirone 15 mg tablet See Rx Instructions .Route 04/25/22 03/13/23 Rx .COMPLEX #180 tabs paroxetine HCl 20 mg tablet See Rx Instructions .Route 06/09/22 03/13/23 Rx .COMPLEX #90 tabs gabapentin 300 mg capsule 300 mg PO TID #90 caps 02/27/23 03/13/23 Rx ibuprofen 600 mg tablet 600 mg PO TID PRN pain #60 tabs 02/27/23 03/13/23 Rx hydrocodone 7.5 mg-acetaminophen 1 tablet PO Q6H PRN pain #60 tabs 03/02/23 03/13/23 Rx 325 mg tablet Laboratory Tests 03/17/23 06:39 WBC 8.0 K/mm3 (4.5-10.0) RBC 3.91 L M/mm3 (4.2-5.4) Hgb 12.3 g/dL (12.0-15.0) Hct 38.0 % (37.0-47.0) MCV 97.2 fl (80-100) MCH 31.5 pg (26-34) MCHC 32.4 g/dl (32-36) RDW 13.2 % (11.5-14.5) Plt Count 350 k/mm3 (150-375) MPV 9.0 fl (7.4-10.4) Immature Gran % (Auto) 0.9 H % (0-0.5) Neut % (Auto) 59.6 % (45.5-73.1) Lymph % (Auto) 23.1 % (18.3-44.2) Bladen % (Auto) 7.8 % (2.6-8.5) Eos % (Auto) 7.8 H % (0-4.4) Baso % (Auto) 0.8 % (0.2-1.2) Lymph # (Auto) 1.84 K/mm3 (0.9-3.2) Bladen # (Auto) 0.6 K/mm3 (0.1-0.6) Eos # (Auto) 0.6 H K/mm3 (0-0.3) Baso # (Auto) 0.1 K/mm3 (0.0-0.1) Abs Immat Gran (auto) 0.07 H K/mm3 (0.00-0.031) Absolute Neuts (auto) 4.8 K/mm3 (1.3-6.7) Absolute Nucleated RBC 0.0 K/mm3 (0.0-0.012) Nucleated RBC % 0.0 % (0.0-0.2) Sodium 135 L mmol/L (137-145) Potassium 4.5 mmol/L (3.4-5.0) Chloride 97 L mmol/L (98-107) Carbon Dioxide 35 H mmol/L (22-30) Anion Gap 3 L mmol/L (8-16) BUN 24 H mg/dL (7-17) Creatinine 0.90 mg/dL (0.7-1.0) Estim Creat Clear Calc 48 ml/min Estimated GFR > 60 (59 - ) Glucose 157 H mg/dL (65-110) Calcium 9.1 mg/dL (8.4-10.2) Patient hx anesthesia problems: none Family hx anesthesia problems: none Results Review: All pre-operative results and documents have been reviewed as part of the pre-operative evaluation. [facility] Past Medical History Medical History Papilloma of breast (~2013) Surgical History Surgical History History of section Hx of cholecystectomy (~2005) Family History Family History Mother Carcinoma of colon Father Family history of coronary artery disease Other Family history of cardiovascular disease Social History Social History Smoking status: Never smoker Alcohol intake: never Substance use: never Lack of Transportation: No Lack of Food: Never True Current Housing: I Have Housing Concerned About Future Housing: No Difficulty Paying Gas/Electric Bills: No Difficulty Paying for Meds: No Currently Unemployed: No Education: Don't Know Difficulty w/ Childcare or Family Care: No Spiritual care concerns: No Anes - Eval Final PreProcedure Day of Procedure
--- NOTE | 2023-03-17 12:36 | PM.IMHP ---
H&P: HPI History of Present Illness Date/Time: 03/17/23 12:36 Chief Complaint: Back and leg pain, bilateral dorsiflexion weakness Narrative: Izabela is a 77-year-old female with progressive to problems related to her back. She has had back pain for some time. This became lower extremity pain 1st on the right and then on the left. Recently this has gotten worse and for the last 2 weeks or so she has had significant weakness in her feet again right greater than left but significant on both sides making it difficult for her to walk. The pain is also debilitating. MRI evaluation was performed here and demonstrates a large disc herniation at L3-4. She is not having bowel or bladder incontinence. She is essentially bed ridden at this point. Review of Systems Review of Systems: Patient denies shortness of breath, cough, fever, chills, nausea, vomiting, weight loss, weight gain, chest pain, dysuria. She has back and leg pain and leg weakness distally as above. Review of systems is otherwise negative on 12 systems except as noted elsewhere. [facility] Past Medical History Medical History Papilloma of breast (~2013) Surgical History Surgical History History of section Hx of cholecystectomy (~2005) Family History Family History Mother Carcinoma of colon Father Family history of coronary artery disease Other Family history of cardiovascular disease Social History Social History Smoking status: Never smoker Alcohol intake: never Substance use: never Lack of Transportation: No Lack of Food: Never True Current Housing: I Have Housing Concerned About Future Housing: No Difficulty Paying Gas/Electric Bills: No Difficulty Paying for Meds: No Currently Unemployed: No Education: Don't Know Difficulty w/ Childcare or Family Care: No Spiritual care concerns: No Meds Home Medications and Allergies Home Medications Medication Instructions Recorded Confirmed Type triamcinolone acetonide 0.1 % See Rx Instructions .Route 03/02/22 03/13/23 Rx topical cream .COMPLEX #80 grams buspirone 15 mg tablet See Rx Instructions .Route 04/25/22 03/13/23 Rx .COMPLEX #180 tabs paroxetine HCl 20 mg tablet See Rx Instructions .Route 06/09/22 03/13/23 Rx .COMPLEX #90 tabs gabapentin 300 mg capsule 300 mg PO TID #90 caps 02/27/23 03/13/23 Rx ibuprofen 600 mg tablet 600 mg PO TID PRN pain #60 tabs 02/27/23 03/13/23 Rx hydrocodone 7.5 mg-acetaminophen 1 tablet PO Q6H PRN pain #60 tabs 03/02/23 03/13/23 Rx 325 mg tablet Allergies Allergy/AdvReac Type Severity Reaction Status Date / Time No Known Allergies Allergy Mild Verified 03/13/23 18:40 Vital Signs Vital Signs - 24 hr 03/16/23 14:00 03/16/23 21:23 03/17/23 05:23 Temperature 98.1 F 98.2 F 98.7 F Pulse Rate 101 H 91 103 H Respiratory Rate 18 13 14 Blood Pressure 133/71 134/69 135/72 Pulse Oximetry 96 90 92 Oxygen Delivery 03/17/23 11:15 Temperature 98.2 F Pulse Rate 106 H Respiratory Rate 16 Blood Pressure 174/93 H Pulse Oximetry 100 Oxygen Delivery Room Air Exam Narrative: Patient is a normally developed, normal appearing female supine in hospital bed in no acute distress but uncomfortable appearing. She is awake, alert, oriented, with good fund of knowledge, recall events and fluent speech. Her face is symmetrical, tongue is midline, pupils equal reactive light, extraocular movements are intact without diplopia or nystagmus, she has good sensation on both sides of the face, palate elevates symmetrically, her hearing is grossly intact, her shoulder shrug is symmetrical and strong. The patient appears deconditioned. She has no drift, dysmetria or dyspraxia of either upper extremity.
--- NOTE | 2023-03-17 12:45 | WPDHPUPDATE1 ---
History and Physical Update Update Date/Time: 03/17/23 12:45 History and Physical has been reviewed, including an updated exam of the patient. There are NO changes in the patient's condition. Risks, benefits, and alternatives have been discussed and questions answered. Patient agrees to proceed with procedure.
[2023-03-17] MEDS: ceFAZolin 2 GM/D5W 50 ML 2 GM/50 ML BAG IVPB (12:56)
--- NOTE | 2023-03-17 13:33 | PCOTNOTE ---
Attempted to see pt. for occupational therapy evaluation. Pt. currently away from room for surgery. Nursing aware. Will follow.
[2023-03-17] MEDS: LIDO 1%/EPINEPHRINE 1:100,000 20 ML VIAL 10 ML INFILTRATE (13:40)
[2023-03-17] MEDS: DOCUSATE SODIUM 100 MG CAPSULE PO (20:54)
[2023-03-17] MEDS: PARoxetine 20 MG TABLET PO (20:54)
[2023-03-17] MEDS: IBUPROFEN 400 MG TABLET 800 MG PO (20:55)
[2023-03-18] VITALS (9 sets, daily range): BP systolic 141–174; BP diastolic 70–85; PULSE 92–109; RESP 14–16; TEMP 36.1–36.5; O2SAT 96–100
[2023-03-18] MEDS: MORPHINE SULFATE (*CRX) 2 MG/ML INJ IV PUSH (00:20)
[2023-03-18] MEDS: HYDROcodone/acetaminophen (*CRX) 7.5-325 MG TABLET 1 TAB PO ×5 (03:05→20:47)
[2023-03-18 07:10] LABS: Basophils Percent Auto 0.2 % (0.2-1.2); Hematocrit 34.7 % (37.0-47.0); Hemoglobin 11.3 g/dL (12.0-15.0); Immature Granulocyte Absolute 0.05 K/mm3 (0.00-0.031); Immature Granulocyte Percent A 0.5 % (0-0.5); Lymphocytes Absolute Auto 0.96 K/mm3 (0.9-3.2); Lymphocytes Percent Auto 9.5 % (18.3-44.2); Mean Corpuscular HGB Conc 32.6 g/dl (32-36); Mean Corpuscular Hemoglobin 30.8 pg (26-34); Mean Corpuscular Volume 94.6 fl (80-100); Mean Platelet Volume 9.2 fl (7.4-10.4); Monocytes Absolute Auto 0.6 K/mm3 (0.1-0.6); Monocytes Percent Auto 5.9 % (2.6-8.5); Neutrophils Absolute Auto 8.5 K/mm3 (1.3-6.7); Neutrophils Percent Auto 83.9 % (45.5-73.1); Platelet Count Result 350 k/mm3 (150-375); Red Blood Count 3.67 M/mm3 (4.2-5.4); Red Cell Distribution Width 12.5 % (11.5-14.5); White Blood Count 10.1 K/mm3 (4.5-10.0)
[2023-03-18 07:29] LABS: Anion Gap 4 mmol/L (8-16); Blood Urea Nitrogen 22 mg/dL (7-17); Calcium 9.1 mg/dL (8.4-10.2); Carbon Dioxide 31 mmol/L (22-30); Chloride 98 mmol/L (98-107); Estimated CRCL calculation 61 ml/min; Estimated Glomerular Filt Rate > 60; Glucose 216 mg/dL (65-110); Potassium 4.2 mmol/L (3.4-5.0); Sodium 133 mmol/L (137-145)
[2023-03-18] MEDS: DOCUSATE SODIUM 100 MG CAPSULE PO ×2 (08:09→20:47)
[2023-03-18] MEDS: busPIRone HCL 5 MG TABLET 15 MG PO ×2 (08:09→20:47)
[2023-03-18] MEDS: polyethylene glycoL 3350 17 GM POWD.PACK PO (08:09)
[2023-03-18] MEDS: GABAPENTIN 300 MG CAPSULE PO ×3 (08:09→16:13)
--- NOTE | 2023-03-18 09:00 | PM.IMPN ---
Progress Note: A&P Assessment and Plan (1) Intractable back pain: Code(s): M54.9 - Dorsalgia, unspecified Status: Acute Assessment and Plan: Acute on chronic presentation. Over the past week it has progressed to the point where she can no longer preform ADLs. Had outpatient neurosurgery consult scheduled. Recent MRI spine wo contrast from 01/2023 shows severe lumbar spondylosis. Neurosurgery consulted while admitted. Recommendations are appreciated. Scheduled pain medication norco 7.5 mg, prn ibuprofen, prn flexeril and prn dilaudid for breakthrough. Scheduled gabapentin. 03/16: Patient evaluated by Neurosurgery, awaiting recommendations, family under the impression that patient will have surgery tomorrow. 03/17: Patient to the operating room today 03/18: location and quality of pain has improved. Patient no longer has radicular pain and has improved lower extremity function pain. She now only has pain on the right lumbar area near surgical incision. (2) Elevated blood pressure reading: Code(s): R03.0 - Elevated blood-pressure reading, without diagnosis of hypertension Status: Acute Assessment and Plan: Blood pressure reviewed on 03/18, stable (3) Unable to ambulate: Code(s): R26.2 - Difficulty in walking, not elsewhere classified Status: Acute Assessment and Plan: Patient unable to participate with PT and OT partially related to right lumbar radicular pain and partially related to left lower extremity footdrop and unable to ambulate due to this. Stroke workup initiated with MRI. If positive will next CTA head neck. Symptom onset at least 6 days ago so no acute intervention thus Code Stroke not called. 03/16: Brain MRI was negative. Patient's family states that the patient told outpatient physical therapy that she could not dorsiflex her left foot and was reportedly told ?just keep working on it.? 03/17: Unchanged 03/18: Improved motor function. She is able to transfer from bed to chair with use of walker and standby assist, able to use bedside commode (4) Generalized anxiety disorder: Code(s): F41.1 - Generalized anxiety disorder Status: Acute Assessment and Plan: Stable on paxil and buspirone (5) Foot drop, left: Code(s): M21.372 - Foot drop, left foot Status: Acute Assessment and Plan: Patient reports present for at least a week, unable to ambulate. MRI brain negative for Stroke. 03/18: improving motor function s/p Back surgery Plan Improved pain and improved motor function status post surgery. Continue to work with PT and OT. Likely will need SNF placement upon discharge. Time Spent With Patient Time with patient: 25 - 35 minutes Subjective Date/time seen: 03/18/23 09:00 Interval history: Patient is status post back surgery reports that her radicular pain is gone and she has improved function of her lower extremities. She does have some right lower sided lumbar pain near the surgical site that is still bothersome but otherwise she feels significantly improved. She is transferring from bed to chair with assist therapy. She is able to use bedside commode now. Review of Systems Review of Systems: All systems reviewed & are unremarkable except as noted in HPI and below Exam Narrative: General: well nourished, appears stated age. No acute distress. HEENT: normocephalic, atraumatic. Mucous membranes moist. EOMI, PERRLA, bilateral sclera anicteric, no conjunctival injection. Neck supple without JVD or lymphadenopathy Respiratory: clear to auscultation bilaterally. No rales/rhonic/wheezes. Cardiovascular: Regular rate and rhythm, normal S1-S2 upon auscultation. No murmurs, rubs, or clicks. PMI is nondisplaced, capillary re-fill less than 3 second. Abdomen: Soft, round, no pulsatile masses, non-distended and non-tender. No rebound, no guarding. No CVA tenderness, no hepatosplenomegaly. Bowel sounds present to all four quadran
[2023-03-18] MEDS: LIDOCAINE 5% PATCH 1 PATCH TRANSDERM (10:18)
[2023-03-18] MEDS: PARoxetine 20 MG TABLET PO (20:47)
[2023-03-19 04:53] VITALS: BP 163/77; PULSE 86; RESP 16; TEMP 36.4; O2SAT 99
[2023-03-19] MEDS: SENNA/DOCUSATE SODIUM TABLET 1 TAB PO ×2 (05:54→08:27)
[2023-03-19] MEDS: HYDROcodone/acetaminophen (*CRX) 7.5-325 MG TABLET 1 TAB PO ×6 (05:54→22:53)
[2023-03-19 06:35] LABS: Basophils Percent Auto 0.5 % (0.2-1.2); Eosinophils Absolute Auto 0.2 K/mm3 (0-0.3); Eosinophils Percent Auto 2.7 % (0-4.4); Hematocrit 35.5 % (37.0-47.0); Hemoglobin 11.3 g/dL (12.0-15.0); Immature Granulocyte Absolute 0.07 K/mm3 (0.00-0.031); Lymphocytes Absolute Auto 2.31 K/mm3 (0.9-3.2); Lymphocytes Percent Auto 31.4 % (18.3-44.2); Mean Corpuscular HGB Conc 31.8 g/dl (32-36); Mean Corpuscular Hemoglobin 30.8 pg (26-34); Mean Corpuscular Volume 96.7 fl (80-100); Mean Platelet Volume 9.4 fl (7.4-10.4); Monocytes Absolute Auto 0.6 K/mm3 (0.1-0.6); Monocytes Percent Auto 8.3 % (2.6-8.5); Neutrophils Absolute Auto 4.1 K/mm3 (1.3-6.7); Neutrophils Percent Auto 56.1 % (45.5-73.1); Platelet Count Result 352 k/mm3 (150-375); Red Blood Count 3.67 M/mm3 (4.2-5.4); Red Cell Distribution Width 12.9 % (11.5-14.5); White Blood Count 7.4 K/mm3 (4.5-10.0)
[2023-03-19 06:58] LABS: Anion Gap 5 mmol/L (8-16); Blood Urea Nitrogen 23 mg/dL (7-17); Calcium 8.7 mg/dL (8.4-10.2); Carbon Dioxide 30 mmol/L (22-30); Chloride 99 mmol/L (98-107); Estimated CRCL calculation 61 ml/min; Estimated Glomerular Filt Rate > 60; Glucose 129 mg/dL (65-110); Potassium 4.5 mmol/L (3.4-5.0); Sodium 134 mmol/L (137-145)
--- NOTE | 2023-03-19 07:50 | PCOTNOTE ---
Patient refused treatment this session due to extreme pain to the point she reported it was hard to take a deep breath. Nursing is aware. Will follow up later today.
[2023-03-19] MEDS: MORPHINE SULFATE (*CRX) 2 MG/ML INJ IV PUSH (08:13)
[2023-03-19] MEDS: GABAPENTIN 300 MG CAPSULE PO ×3 (08:27→17:03)
[2023-03-19] MEDS: DOCUSATE SODIUM 100 MG CAPSULE PO ×2 (08:28→20:55)
[2023-03-19] MEDS: polyethylene glycoL 3350 17 GM POWD.PACK PO (08:28)
[2023-03-19] MEDS: CYCLOBENZAPRINE HCL 10 MG TABLET PO ×3 (08:28→20:55)
[2023-03-19] MEDS: busPIRone HCL 5 MG TABLET 15 MG PO ×2 (08:28→20:54)
--- NOTE | 2023-03-19 11:50 | WPDNEUROSGPN ---
Progress Note: A&P Assessment and Plan (1) Lumbar disc herniation: Code(s): M51.26 - Other intervertebral disc displacement, lumbar region Status: Acute Assessment and Plan: izabela is doing better from the standpoint of her pain but still has significant weakness. I agree with the idea of rehab placement with this can be arranged. She will follow-up with me in 6 weeks to monitor progress and make any further recommendations that are necessary. Subjective Date/time seen: 03/19/23 11:50 Interval history: Izabela is postop day 2 status post L3-4 microdiskectomy. Her pain is significantly better. She is participating in physical therapy. She still has bilateral dorsiflexion weakness. This is worse on the right. She is not having new bowel or bladder other constitutional problems. Exam Narrative: Strength is significantly decreased in dorsiflexion bilaterally right greater than left. There still is function of the dorsiflexors and EHLs. Sensation is slightly decreased in the dorsum of the foot to the lateral calf and flores bilaterally. Wound is clean, dry and intact. Objective Data Vital Signs Vital Signs: Vital Signs - 24 hr 03/18/23 11:57 03/18/23 13:28 03/18/23 17:28 Temperature 97.7 F 97.5 F L Pulse Rate 105 H 92 Respiratory Rate 14 14 Blood Pressure 154/70 H 154/72 H Pulse Oximetry 96 98 98 Oxygen Delivery Room Air 03/18/23 20:28 03/18/23 20:00 03/19/23 04:53 Temperature 97.6 F 97.6 F Pulse Rate 99 86 Respiratory Rate 16 16 Blood Pressure 160/75 H 163/77 H Pulse Oximetry 100 99 Oxygen Delivery Room Air 03/19/23 08:30 Temperature Pulse Rate Respiratory Rate Blood Pressure Pulse Oximetry Oxygen Delivery Room Air Intake/Output Intake/Output: Intake & Output 03/16/23 03/17/23 03/18/23 03/19/23 23:59 23:59 23:59 23:59 Intake Total 680 1220 700 240 Output Total 1192 737 8535 350 Balance -670 620 -1475 -110 Meds/Results Medications: Active Medications Generic Name Dose Route Start Last Admin Trade Name Freq PRN Reason Stop Dose Admin Acetaminophen 650 mg 03/13/23 16:41 Acetaminophen 325 Mg Tablet PO Q4H PRN Mild Pain (1-3) or Fever Hydrocodone Bitart/Acetaminophen 1 tab 03/14/23 19:00 03/19/23 11:10 Hydrocodone/Acetaminophen (*Crx) 7.5-325 Mg Tablet PO 1 tab Q4H LORENA Administration Hydrocodone Bitart/Acetaminophen 1 tab 03/17/23 14:28 Hydrocodone/Acetaminophen (*Crx) 5-325 Mg Tablet PO Q4H PRN Mild Pain (1-3) Hydrocodone Bitart/Acetaminophen 1 tab 03/17/23 14:28 Hydrocodone/Acetaminophen (*Crx) 10-325 Mg Tablet PO Q4H PRN Moderate Pain (4-6) Al Hydrox/Mg Hydrox/Simethicone 20 ml 03/17/23 14:28 Mag Hydrox/Al Hydrox/Simeth 30 Ml Udc PO Q4H PRN Indigestion/Heartburn Bisacodyl 10 mg 03/17/23 14:28 Bisacodyl 10 Mg Suppository RECTAL DAILY PRN Constipation Buspirone HCl 15 mg 03/13/23 21:00 03/19/23 08:28 Buspirone Hcl 5 Mg Tablet PO 15 mg Q12HR LORENA Administration Cyclobenzaprine HCl 10 mg 03/17/23 14:28 03/19/23 11:11 Cyclobenzaprine Hcl 10 Mg Tablet PO 10 mg TID PRN Administration Muscle Spasms Docusate Sodium 100 mg 03/17/23 21:00 03/19/23 08:28 Docusate Sodium 100 Mg Capsule PO 100 mg Q12HR LORENA Administration Gabapentin 300 mg 03/14/23 21:00 03/19/23 11:11 Gabapentin 300 Mg Capsule PO 300 mg TID LORENA Administration Hydralazine HCl 10 mg 03/14/23 09:10 Hydralazine Hcl 20 Mg/Ml Vial IV PUSH ONCE PRN Blood Pressure - High Ibuprofen 800 mg 03/14/23 13:02 03/17/23 20:55 Ibuprofen 400 Mg Tablet PO 800 mg TID PRN Administration PAIN 4-6 Lidocaine 1 patch 03/18/23 09:00 03/19/23 08:28 Lidocaine 5% Patch TRANSDERM Not Given DAILY LORENA Morphine Sulfate 2 mg 03/17/23 14:28 03/19/23 08:13 Morphine Sulfate (*Crx) 2 Mg/Ml Inj IV PUSH 2 mg Q2H PRN
--- NOTE | 2023-03-19 12:34 | PM.IMPN ---
Progress Note: A&P Assessment and Plan (1) Intractable back pain: Code(s): M54.9 - Dorsalgia, unspecified Status: Acute Assessment and Plan: Acute on chronic presentation. Over the past week it has progressed to the point where she can no longer preform ADLs. Had outpatient neurosurgery consult scheduled. Recent MRI spine wo contrast from 01/2023 shows severe lumbar spondylosis. Neurosurgery consulted while admitted. Recommendations are appreciated. Scheduled pain medication norco 7.5 mg, prn ibuprofen, prn flexeril and prn dilaudid for breakthrough. Scheduled gabapentin. 03/16: Patient evaluated by Neurosurgery, awaiting recommendations, family under the impression that patient will have surgery tomorrow. 03/17: Patient to the operating room today 03/18: location and quality of pain has improved. Patient no longer has radicular pain and has improved lower extremity function pain. She now only has pain on the right lumbar area near surgical incision. 03/19: incisional area pain only. (2) Elevated blood pressure reading: Code(s): R03.0 - Elevated blood-pressure reading, without diagnosis of hypertension Status: Acute Assessment and Plan: Blood pressure reviewed on 03/19, stable (3) Unable to ambulate: Code(s): R26.2 - Difficulty in walking, not elsewhere classified Status: Acute Assessment and Plan: Patient unable to participate with PT and OT partially related to right lumbar radicular pain and partially related to left lower extremity footdrop and unable to ambulate due to this. Stroke workup initiated with MRI. If positive will next CTA head neck. Symptom onset at least 6 days ago so no acute intervention thus Code Stroke not called. 03/16: Brain MRI was negative. Patient's family states that the patient told outpatient physical therapy that she could not dorsiflex her left foot and was reportedly told ?just keep working on it.? 03/17: Unchanged 03/18: Improved motor function. She is able to transfer from bed to chair with use of walker and standby assist, able to use bedside commode 03/19: Improved motor function still with significant weakness. Patient will need rehabilitation upon discharge from hospital. (4) Generalized anxiety disorder: Code(s): F41.1 - Generalized anxiety disorder Status: Acute Assessment and Plan: Stable on paxil and buspirone Patient highly anxious about discharge from the hospital (5) Foot drop, left: Code(s): M21.372 - Foot drop, left foot Status: Acute Assessment and Plan: Patient reports present for at least a week, unable to ambulate. MRI brain negative for Stroke. 03/18: improving motor function s/p Back surgery 03/19: improved motor function Plan Improved pain and improved motor function status post surgery. Continue to work with PT and OT. Patient will need acute rehabilitation or SNF placement upon discharge. Time Spent With Patient Time with patient: 25 - 35 minutes Subjective Date/time seen: 03/19/23 12:34 Interval history: Patient reports incisional pain as well as bilateral abdominal wall muscle pain likely from positioning in the OR. She reports that it is difficult to work with therapy due to the pain. She is also very anxious about potential discharge especially if her therapy is continued at a group home. She reports that the shooting stabbing pain in her right leg is relieved postoperative. Review of Systems Review of Systems: All systems reviewed & are unremarkable except as noted in HPI and below Exam Narrative: General: well nourished, appears stated age. No acute distress. HEENT: normocephalic, atraumatic. Mucous membranes moist. EOMI, PERRLA, bilateral sclera anicteric, no conjunctival injection. Neck supple without JVD or lymphadenopathy Respiratory: clear to auscultation bilaterally. No rales/rhonic/wheezes. Cardiovascular: Regular rate and rhythm, normal S1-S2 upon a
[2023-03-19 14:00] VITALS: BP 134/68; PULSE 97; RESP 16; TEMP 36.2; O2SAT 97
[2023-03-19 20:00] VITALS: RESP 16
[2023-03-19 20:22] VITALS: BP 126/63; PULSE 104; RESP 16; TEMP 36.6; O2SAT 100
[2023-03-19] MEDS: PARoxetine 20 MG TABLET PO (20:55)
[2023-03-20] MEDS: HYDROcodone/acetaminophen (*CRX) 7.5-325 MG TABLET 1 TAB PO ×4 (02:28→14:31)
[2023-03-20 04:44] VITALS: BP 150/74; PULSE 83; RESP 16; TEMP 36.2; O2SAT 100
[2023-03-20 07:26] LABS: Basophils Absolute Auto 0.1 K/mm3 (0.0-0.1); Eosinophils Absolute Auto 0.5 K/mm3 (0-0.3); Eosinophils Percent Auto 6.8 % (0-4.4); Hematocrit 35.6 % (37.0-47.0); Hemoglobin 11.4 g/dL (12.0-15.0); Immature Granulocyte Absolute 0.08 K/mm3 (0.00-0.031); Immature Granulocyte Percent A 1.1 % (0-0.5); Lymphocytes Absolute Auto 2.35 K/mm3 (0.9-3.2); Lymphocytes Percent Auto 33.1 % (18.3-44.2); Mean Corpuscular Hemoglobin 31.3 pg (26-34); Mean Corpuscular Volume 97.8 fl (80-100); Monocytes Absolute Auto 0.7 K/mm3 (0.1-0.6); Monocytes Percent Auto 9.3 % (2.6-8.5); Neutrophils Absolute Auto 3.5 K/mm3 (1.3-6.7); Neutrophils Percent Auto 48.7 % (45.5-73.1); Platelet Count Result 337 k/mm3 (150-375); Red Blood Count 3.64 M/mm3 (4.2-5.4); Red Cell Distribution Width 12.9 % (11.5-14.5); White Blood Count 7.1 K/mm3 (4.5-10.0)
[2023-03-20 07:39] LABS: Anion Gap 5 mmol/L (8-16); Blood Urea Nitrogen 20 mg/dL (7-17); Calcium 9.1 mg/dL (8.4-10.2); Carbon Dioxide 32 mmol/L (22-30); Chloride 98 mmol/L (98-107); Estimated CRCL calculation 54 ml/min; Estimated Glomerular Filt Rate > 60; Glucose 134 mg/dL (65-110); Sodium 135 mmol/L (137-145)
[2023-03-20] MEDS: LIDOCAINE 5% PATCH 1 PATCH TRANSDERM (09:03)
[2023-03-20] MEDS: polyethylene glycoL 3350 17 GM POWD.PACK PO (09:21)
[2023-03-20] MEDS: DOCUSATE SODIUM 100 MG CAPSULE PO (09:22)
[2023-03-20] MEDS: busPIRone HCL 5 MG TABLET 15 MG PO (09:22)
[2023-03-20] MEDS: GABAPENTIN 300 MG CAPSULE PO ×2 (09:22→12:20)
--- NOTE | 2023-03-20 10:52 | PM.IMPN ---
Progress Note: A&P Assessment and Plan (1) Intractable back pain: Code(s): M54.9 - Dorsalgia, unspecified Status: Acute Assessment and Plan: Acute on chronic presentation. Over the past week it has progressed to the point where she can no longer preform ADLs. Had outpatient neurosurgery consult scheduled. Recent MRI spine wo contrast from 01/2023 shows severe lumbar spondylosis. Neurosurgery consulted while admitted. Recommendations are appreciated. Scheduled pain medication norco 7.5 mg, prn ibuprofen, prn flexeril and prn dilaudid for breakthrough. Scheduled gabapentin. 03/16: Patient evaluated by Neurosurgery, awaiting recommendations, family under the impression that patient will have surgery tomorrow. 03/17: Patient to the operating room today 03/18: location and quality of pain has improved. Patient no longer has radicular pain and has improved lower extremity function pain. She now only has pain on the right lumbar area near surgical incision. 03/19: incisional area pain only. 03/20: incision clean dry and intact. No radicular pain. Improved motor function. Improved ability to participate with therapy. (2) Elevated blood pressure reading: Code(s): R03.0 - Elevated blood-pressure reading, without diagnosis of hypertension Status: Acute Assessment and Plan: Blood pressure reviewed on 03/20, stable (3) Unable to ambulate: Code(s): R26.2 - Difficulty in walking, not elsewhere classified Status: Acute Assessment and Plan: Patient unable to participate with PT and OT partially related to right lumbar radicular pain and partially related to left lower extremity footdrop and unable to ambulate due to this. Stroke workup initiated with MRI. If positive will next CTA head neck. Symptom onset at least 6 days ago so no acute intervention thus Code Stroke not called. 03/16: Brain MRI was negative. Patient's family states that the patient told outpatient physical therapy that she could not dorsiflex her left foot and was reportedly told ?just keep working on it.? 03/17: Unchanged 03/18: Improved motor function. She is able to transfer from bed to chair with use of walker and standby assist, able to use bedside commode 03/19: Improved motor function still with significant weakness. Patient will need rehabilitation upon discharge from hospital. 03/20: Hoping that [facility] who will accept patient however patient and family are refusing discharge until at least 24 hours notice. They have now received notice that patient will be discharged in 24 hours. (4) Generalized anxiety disorder: Code(s): F41.1 - Generalized anxiety disorder Status: Acute Assessment and Plan: Stable on paxil and buspirone Patient highly anxious about discharge from the hospital (5) Foot drop, left: Code(s): M21.372 - Foot drop, left foot Status: Acute Assessment and Plan: Patient reports present for at least a week, unable to ambulate. MRI brain negative for Stroke. 03/18: improving motor function s/p Back surgery 03/19: improved motor function 03/20: Full function right lower extremity, still footdrop of the left. Plan Improved pain and improved motor function status post surgery. Continue to work with PT and OT. Patient will need acute rehabilitation or SNF placement upon discharge. Time Spent With Patient Time with patient: Greater than 35 minutes Subjective Date/time seen: 03/20/23 10:52 Interval history: Patient working well with therapy but still does not believe she is ready for discharge. patient reports that her right knee is buckling. Offered knee brace. Family states that because she is a Medicare patient she has to receive 24 hours warning before discharge so they will not accept discharge today. Plan is discharge once in-patient rehabilitation/ SNF has been arranged. Patient no longer medically requires inpatient hospitalization. Review of
[2023-03-20] MEDS: CYCLOBENZAPRINE HCL 10 MG TABLET PO (13:12)
--- NOTE | 2023-03-20 13:25 | PM.DS ---
DS: Admitting Diagnosis Discharge Date 03/20/2023 Admitting Diagnosis intractable back pain, elevated blood pressure reading, unable to ambulate, generalized anxiety disorder DS: Discharge Diagnosis Discharge Diagnosis (1) Intractable back pain: Code(s): M54.9 - Dorsalgia, unspecified Status: Acute (2) Elevated blood pressure reading: Code(s): R03.0 - Elevated blood-pressure reading, without diagnosis of hypertension Status: Acute (3) Unable to ambulate: Code(s): R26.2 - Difficulty in walking, not elsewhere classified Status: Acute (4) Generalized anxiety disorder: Code(s): F41.1 - Generalized anxiety disorder Status: Acute (5) Foot drop, left: Code(s): M21.372 - Foot drop, left foot Status: Acute (6) Lumbago with sciatica, right side: Qualifiers: Chronicity: unspecified Back pain laterality: right Qualified Code(s): M54.41 - Lumbago with sciatica, right side Code(s): M54.41 - Lumbago with sciatica, right side Status: Acute (7) Lumbar disc herniation: Code(s): M51.26 - Other intervertebral disc displacement, lumbar region Status: Acute Plan discharged [facility] for inpatient rehabilitation DS: Summary Hospital Course Reason for hospitalization: Patient was admitted to the hospital due to intractable back pain with findings disc herniation and right-sided radicular leg pain. Hospital Course: During admission for right-sided radicular sciatica pain, patient was noted to have left foot drop. This is likely been an ongoing problem for a few months which has altered her gait causing her to need to use a walker prior to hospitalization. She had become quite debilitated over the past couple of months. Neurosurgery was contacted and evaluated patient. Decision was made to perform L3/4 micro diskectomy which did relieve patient's radicular pain and improved her mobility primarily on the right side. Patient underwent MRI to assess for stroke due to left foot drop but MRI was negative. During hospitalization patient has remained profoundly anxious regarding her mobility decline and her insistence that she not become a [facility] patient. This anxiety caused her to not want to participate with therapy because she was afraid she might hurt. It also caused her not to 1 discharge from the hospital and at 1 point she even asked me if she would still be in the hospital at [facility] [place]. It was explained to patient that the acute hospitalization requirements were no longer present and that she needed inpatient rehabilitation. She was accepted by [facility]. She was discharged by EMS to [facility] for inpatient rehabilitation and pain control. Status at Discharge Cognitive/behavioral status at discharge: Awake alert oriented very anxious Functional status at discharge: uses cane/walker ( only for transfers, otherwise chair/bed) Time Spent with Patient Time attestation: Total time spent providing and/or coordinating discharge services:35 Time spent: Greater than 30 minutes Exam Narrative: General: well nourished, appears stated age. No acute distress. HEENT: normocephalic, atraumatic. Mucous membranes moist. EOMI, PERRLA, bilateral sclera anicteric, no conjunctival injection. Neck supple without JVD or lymphadenopathy Respiratory: clear to auscultation bilaterally. No rales/rhonic/wheezes. Cardiovascular: Regular rate and rhythm, normal S1-S2 upon auscultation. No murmurs, rubs, or clicks. PMI is nondisplaced, capillary re-fill less than 3 second. Abdomen: Soft, round, no pulsatile masses, non-distended and non-tender. No rebound, no guarding. No CVA tenderness, no hepatosplenomegaly. Bowel sounds present to all four quadrants. Extremities: No cyanosis, clubbing, or edema present. Pulses are palpable 2/2. Improved motor function bilateral lower extremities. Patient can transfer with s
[2023-03-20 14:31] VITALS: BP 173/81; PULSE 96; RESP 18; TEMP 35.8; O2SAT 99
[2023-03-20] MEDS: IBUPROFEN 400 MG TABLET 800 MG PO (15:42)
--- NOTE | 2023-03-28 09:51 | P.OP_ITS ---
Procedure Note - Detailed Date of Procedure 03/28/23 Pre-op Diagnosis Chronic Lower Back Pain/Unable to Ambulate w/o Ass, right L3-4 herniated nucleus pulposus Post-op Diagnosis Same Procedure Performed Right L3-4 microscopic lumbar diskectomy Surgeon Bruno Ignacio MD Anesthesia General Description of Procedure Patient was brought to the operating room in the supine position, was sedated, intubated and placed under general anesthesia in routine fashion. She was then turned into the prone position on a Min frame. The of operation her back was examined, marked for incision, prepped and draped in routine sterile fashion. Incision was marked over the L3 and L4 spinous processes in the midline. This area was injected with 0.5% lidocaine with [id number] epinephrine. Intravenous antibiotics given prior to incision. Incision was made with a 10 blade scalpel down to the lumbodorsal fascia. A sub periosteal dissection of the muscles of tissue away from spinous process lamina on the right at L3-4 was performed with a subperiosteal elevator and Bovie cautery. A verifying x-rays obtained to verify the level of operation. Midas-Amadou drill was used to perform a hemilaminectomy and medial facetectomy at L3-4 on the right. Under microscopy the yellow ligament was lifted removed piecemeal using Kerrison punches. Thecal sac and then be retracted medially. This exposed a subligamentous and extruded disc herniation. The ligament was entered using 11 blade scalpel. An Cherelle curette, curved curette and Blair rongeur were used to push free and removed fragments of herniated disc from beneath the thecal sac. This was done until a dental instrument could be placed in the ventral epidural space to confirm lack of compression. A nerve hook was placed above and below the nerve root towards an out the foramen to confirm lack of compression in this location as well. The wound was then copiously irrigated with bacitracin irrigation all bleeding stopped with bipolar and Bovie cautery Gelfoam thrombin powder. The wound was then closed in layered fashion with 2-0 Vicryl interrupted sutures in the lumbodorsal fascia and Elizabeth's layer. 3-0 Vicryl buried interrupted sutures were placed in the dermis and the skin was closed with a running 4-0 Monocryl subcuticular stitch and dressed with Dermabond. The patient was allowed to wake up in the operating room and was taken to the recovery room in stable condition. There were no immediate complications of this operation. All counts were reported correct in the case. Blood loss was 25 cc. The patient was neurologically at her baseline postoperatively. CPT code: 33849 Estimated Blood Loss -25.0 IV Fluids 1,000 Urine Output 500 Complications None Condition Stable Disposition PACU [facility] Billing Surgery - Charge Forward: Surgery Billing
== END 2023-03-20 16:11 | DRG 520 ==
LOC: ANHED 17:01 → ANH3MEDSUR 17:40
PROVIDERS: Neurological Surgery; Nurse Practitioner Acute Care; Admitting Provider Internal Medicine; Emergency Provider Emergency Medicine; PCP Family Medicine; Visit Provider Nurse Practitioner
PROC: 0SB20ZZ Excision of Lumbar Vertebral Disc, Open Approach (ICD-10-PCS; CPT 63030; principal; 2023-03-17 12:00)
DX: M51.16 Intervertebral disc disorders with radiculopathy, lumbar region (principal); M21.372 Foot drop, left foot; M47.26 Other spondylosis with radiculopathy, lumbar region; G89.29 Other chronic pain; K21.9 Gastro-esophageal reflux disease without esophagitis; R03.0 Elevated blood-pressure reading, without diagnosis of hypertension; R26.2 Difficulty in walking, not elsewhere classified; F41.1 Generalized anxiety disorder; Z74.01 Bed confinement status; Z90.49 Acquired absence of other specified parts of digestive tract
CPT/HCPCS: 36415; 70551; 71045; 80048; 80053; 81001; 82550; 82948; 83735; 85025; 85652; 86140; 96361; 96374; 96375; 96376; 97110; 97161; 97165; 97530; 97535; 99199; 99285; A9270; G0378; J0330; J0690; J1100; J1170; J2060; J2270; J2310; J2405; J2704; J3010; J7030; J7120

== ENCOUNTER 2023-04-05 12:06 | Inpatient (IN) | payer MEDICARE, SELFPAY ==
[2023-04-05] VITALS (25 sets, daily range): BP systolic 115–166; BP diastolic 72–104; PULSE 90–114; RESP 9–21; TEMP 36.7–36.9; O2SAT 89–100
--- NOTE | ~2023-04-05 | XR_ITS ---
EXAMINATION: XR fluoroscopy no charge DATE: 04/13/2023 09:39 INDICATION: Revision L3-L4 microdiscectomy. TECHNIQUE: A single intraoperative lateral fluoroscopic view of the lumbar spine was obtained. I was not present. Fluoroscopy exposure time was 1 second. COMPARISON: Lumbar spine MRI 04/07/2023 FINDINGS: Instruments overlie the posterior elements at 3-L4. There is severe lumbar spondylosis. IMPRESSION: 1. Severe lumbar spondylosis. Reviewed, dictated and finalized at location A.
--- NOTE | ~2023-04-05 | XR_ITS ---
XR hip LT min 3V w AP pelvis DATE: 04/05/2023 13:02 INDICATION: Low back, left hip and groin pain TECHNIQUE: AP pelvis. AP, lateral and crosstable lateral views of left hip COMPARISON: 01/19/2023 lumbar spine FINDINGS: Multilevel degenerative disc disease, moderately prominent L3-4, severe at L4-5 and L5-S1 a s well. Normal alignment at the pubic symphysis and sacroiliac joints. No pelvic fracture or bone destruction. Mild degenerative spurring of the left femoral head consistent with mild left hip osteoarthritis. No fracture or dislocation, avascular necrosis or bone destruction of the left hip is detected. Osteopenia. IMPRESSION: Multilevel lumbar degenerative disc disease, particularly at L4-5 and L5-S1 Mild left hip osteoarthritis Osteopenia Reviewed, dictated and finalized at location B. IMPRESSION: Multilevel lumbar degenerative disc disease, particularly at L4-5 a nd L5-S1 Mild left hip osteoarthritis Osteopenia
--- NOTE | ~2023-04-05 | MR_ITS ---
MRI of the left hip Clinical history: Pain, limited range of motion Technique: Coronal T1-weighted, T2-weighted, and proton-density fat-sat images, and axial T1-weighted and proton-density fat-sat images were acquired through the pelvis. Coronal T2-weighted images and c oronal, axial, and sagittal proton-density fat-sat images were acquired through the left hip. Findings: There is no fracture, avascular necrosis, transient suppresses of either hip. Bone marrow s ignals the proximal femora and visualized pelvic bones are unremarkable. Bilateral hip joint spaces a re preserved. No significant degenerative change. No erosive arthropathy evident. No joint effusion. No left acetabular labral tear evident. No distinct evidence for femoral acetabular impingement. There is mild edematous change of the distal left gluteus medius muscle belly near the distal myotend inous junction region. Remaining musculature is unremarkable. Visually tendons are intact. No distinc t bursitis. No soft tissue mass. IMPRESSION: Edematous change of the distal left gluteus medius muscle belly near the myotendinous junction of the trochanteric insertion region. Findings could reflect muscle strain or contusion. Correlate for infl ammatory process. Reviewed, dictated and finalized at location M. IMPRESSION: Edematous change of the distal left gluteus medius muscle belly near the myoten dinous junction of the trochanteric insertion region. Findings could reflect mu scle strain or contusion. Correlate for inflammatory process.
--- NOTE | ~2023-04-05 | MR_ITS ---
EXAMINATION: MR lumbar spine wo con DATE: 04/07/2023 13:16 INDICATION: Low back pain. Left foot drop. Left groin pain. TECHNIQUE: Magnetic resonance imaging (MRI) of the lumbar spine was performed without intravenous con trast. Sequences included sagittal T2-weighted FSE, sagittal T2-weighted FS FSE, sagittal T1-weighted FSE, and axial T2-weighted FSE. COMPARISON: Lumbar spine MRI 02/16/2023 FINDINGS: There is 3 mm retrolisthesis of L3 on L4. There is mild chronic anterior wedging of T12 brittany tebral body. There is mildly decreased disc height at L2-L3 and severely decreased disc height at L3- L4, L4-L5, and L5-S1. The distal spinal cord signal intensity is normal. The conus medullaris is at L 1. The following disc levels are specifically discussed: L1-L2: The disc is bulging. There is mild bilateral facet joint osteoarthritis. There is mild bilater al neural foraminal stenosis. There is mild central canal stenosis. L2-L3: The disc is bulging and has an annular fissure. There is mild bilateral facet joint osteoarthr itis. There is mild bilateral neural foraminal stenosis. There is mild central canal stenosis. L3-L4: The disc is bulging with superimposed large central extrusion with 19 mm inferior extension an d 8 mm superior extension. There is severe bilateral facet joint osteoarthritis. There is moderate bi lateral neural foraminal stenosis. There is moderate central canal stenosis. L4-L5: The disc is bulging and has an annular fissure. There is severe bilateral facet joint osteoart hritis. There is mild bilateral neural foraminal stenosis. There is mild central canal stenosis. L5-S1: The disc is bulging and has an annular fissure. There is severe bilateral facet joint osteoart hritis. There is moderate right and mild left neural foraminal stenosis. There is mild central canal stenosis. IMPRESSION: 1. Severe lumbar spondylosis with worsened large extrusion at L3-L4. Reviewed, dictated and finalized at location E.
--- NOTE | 2023-04-05 12:16 | ED.GENADULT ---
HPI - General Adult General Chief complaint: Unspecified Stated complaint: extreme pain to back,hip,groin Time Seen by Provider: 04/05/23 12:14 History of Present Illness HPI narrative: Patient is a 77-year-old female with history of degenerative disc disease, recent micro diskectomy on 03/28/2023 here with back pain and left groin pain. Patient states that she has been struggling with back pain for quite some time, was admitted last month for persistent back pain and underwent a procedure by Dr. Ignacio. Patient had been having some right leg pain prior to this procedure. During her hospitalization she did get tested for stroke because she was having some left-sided footdrop however this workup was negative. She was discharged to a rehab facility. She has been home from rehab for approximately 4 days. They note that she was improving while at rehab and they found her stable to be discharged home. She notes worsening pain since being discharged home despite her pain regimen with gabapentin, muscle relaxers, opiates. Today she was in so much pain she was unable to get out of bed. She notes that she did sleep on her right side last night and was unable to lift her left leg this morning due to pain. She denies any appreciable weakness in the leg. The pain is located in the groin on the left side and radiates down her femur on the left side. No falls or trauma. She denies dysuria but has had increased urinary frequency. Today she soiled herself because she was unable to get out of bed due to the pain. She received morphine and zofran en route by EMS with improvement of her pain. No fever or chills. Related Data Allergies Allergy/AdvReac Type Severity Reaction Status Date / Time No Known Allergies Allergy Mild Verified 04/05/23 17:14 Review of Systems Review of Systems: All systems reviewed & are unremarkable except as noted in HPI and below PMFSH Past Medical History Medical History Papilloma of breast (~2013) Surgical History Surgical History History of section Hx of cholecystectomy (~2005) Family History Family History Mother Carcinoma of colon Father Family history of coronary artery disease Other Family history of cardiovascular disease Social History Social History Smoking status: Never smoker Second hand tobacco smoke exposure: No Alcohol intake: former Substance use: never Lack of Transportation: No Lack of Food: Never True Current Housing: I Have Housing Concerned About Future Housing: No Difficulty Paying Gas/Electric Bills: No Difficulty Paying for Meds: No Currently Unemployed: No Education: Don't Know Difficulty w/ Childcare or Family Care: No Spiritual care concerns: No Exam Narrative: GENERAL: Well-appearing, well-nourished, and in no acute distress. HEAD: Normocephalic, atraumatic. EYES: PERRLA and EOMI. ENT: Nares clear. Mucous membranes moist. NECK: Supple. CHEST: Clear to auscultation. No respiratory distress. HEART: Regular rate and rhythm. Normal peripheral pulses. ABDOMEN: Soft, suprapubic fullness and tenderness, nondistended. EXTREMITIES: Normal range of motion. Tenderness in left groin without palpable hernia and tenderness down anterior femur. No deformities appreciated. SKIN: Warm, dry, no rash. NEURO: No focal deficits. Alert and oriented x3. PSYCH: Normal mood and affect. Course Course Emergency Course: Chart review performed. Patient here with pain in hips, back and groin per triage note. Neurosurgery procedure note states patient had right L3-[address] Ignacio last month. Patient appears to have been discharged on 04/01/23 from hospital to a rehab facility. Patient seen and evaluated, n
[2023-04-05 13:39] LABS: Basophils Absolute Auto 0.1 K/mm3 (0.0-0.1); Basophils Percent Auto 0.8 % (0.2-1.2); Eosinophils Absolute Auto 0.2 K/mm3 (0-0.3); Eosinophils Percent Auto 3.1 % (0-4.4); Hematocrit 36.2 % (37.0-47.0); Hemoglobin 11.9 g/dL (12.0-15.0); Immature Granulocyte Absolute 0.04 K/mm3 (0.00-0.031); Immature Granulocyte Percent A 0.6 % (0-0.5); Lymphocytes Absolute Auto 1.52 K/mm3 (0.9-3.2); Lymphocytes Percent Auto 23.3 % (18.3-44.2); Mean Corpuscular HGB Conc 32.9 g/dl (32-36); Mean Corpuscular Hemoglobin 30.8 pg (26-34); Mean Corpuscular Volume 93.8 fl (80-100); Monocytes Absolute Auto 0.4 K/mm3 (0.1-0.6); Monocytes Percent Auto 6.1 % (2.6-8.5); Neutrophils Absolute Auto 4.3 K/mm3 (1.3-6.7); Neutrophils Percent Auto 66.1 % (45.5-73.1); Platelet Count Result 466 k/mm3 (150-375); Red Blood Count 3.86 M/mm3 (4.2-5.4); Red Cell Distribution Width 12.4 % (11.5-14.5); White Blood Count 6.5 K/mm3 (4.5-10.0)
[2023-04-05 13:52] LABS: Alanine Aminotransferase 33 U/L (6-35); Albumin Level 3.7 g/dL (3.5-5.1); Alkaline Phosphatase 92 U/L (38-126); Anion Gap 8 mmol/L (8-16); Aspartate Amino Transferase 29 U/L (14-36); Bilirubin,Total 0.5 mg/dL (0.2-1.3); Blood Urea Nitrogen 11 mg/dL (7-17); Calcium 9.1 mg/dL (8.4-10.2); Carbon Dioxide 24 mmol/L (22-30); Chloride 104 mmol/L (98-107); Estimated Glomerular Filt Rate > 60; Glucose 122 mg/dL (65-110); Potassium 3.9 mmol/L (3.4-5.0); Sodium 136 mmol/L (137-145)
[2023-04-05 13:58] LABS: Appearance Urine Clear (Clear); Bilirubin Urine Negative (Negative); Blood Urine Negative (Negative); Color Urine Yellow (Yellow); Glucose Urine UA Negative (Negative); Ketones Urine Negative (Negative); Leukocyte Esterase Ur Negative LEU/UL (Negative); Nitrate Urine Negative (Negative); Protein Urine Negative (Negative); Specific Grav Ur 1.014 (1.001-1.035); pH Urine 7.5 (5.0-9.0)
[2023-04-05 13:59] LABS: Add Urine Microscopic? NO
[2023-04-05] MEDS: MORPHINE SULFATE (*CRX) 4 MG/ML INJ IV PUSH (14:15)
[2023-04-05 14:32] LABS: Erythrocyte Sedimentation Rate 62 mm/hr (0-20)
--- NOTE | 2023-04-05 16:55 | ADMGEN ---
This patient, Izabela Crook, was admitted to Medical Room 344-01. Patient/family oriented to hospital policies and general routines including ID bracelet, bed and alarms, visiting hours, pain management, procedures, bathroom and other care routines, personal items, smoking policy, room service/diet, and visiting hours. Information on how to activate the Rapid Response Team has been discussed. Patient/Family are encouraged to report perceived risks to care and to ask questions if they do not understand what they are told or what they should do.
[2023-04-05] MEDS: ACETAMINOPHEN 500 MG TABLET PO (17:30)
[2023-04-05] MEDS: KETOROLAC 30 MG/ML VIAL (*BKC) IV PUSH (17:30)
[2023-04-05] MEDS: PARoxetine 20 MG TABLET PO (22:00)
[2023-04-05] MEDS: GABAPENTIN 300 MG CAPSULE 600 MG PO (22:00)
[2023-04-05] MEDS: busPIRone HCL 5 MG TABLET 15 MG PO (22:00)
[2023-04-05] MEDS: oxyCODONE HCL (*CRX) 5 MG TAB IR PO (22:45)
[2023-04-05] MEDS: PHARMACIST COMMUNICATION ORDER 1 EACH XX (23:20)
[2023-04-06] MEDS: ACETAMINOPHEN 500 MG TABLET PO ×4 (00:19→17:23)
[2023-04-06 05:33] VITALS: BP 148/80; PULSE 88; RESP 20; TEMP 36.6; O2SAT 97
[2023-04-06 05:42] LABS: Hematocrit 37.6 % (37.0-47.0); Hemoglobin 11.8 g/dL (12.0-15.0); Mean Corpuscular HGB Conc 31.4 g/dl (32-36); Mean Corpuscular Hemoglobin 30.5 pg (26-34); Mean Corpuscular Volume 97.2 fl (80-100); Mean Platelet Volume 8.9 fl (7.4-10.4); Platelet Count Result 433 k/mm3 (150-375); Red Blood Count 3.87 M/mm3 (4.2-5.4); Red Cell Distribution Width 12.6 % (11.5-14.5); White Blood Count 6.9 K/mm3 (4.5-10.0)
[2023-04-06] MEDS: busPIRone HCL 5 MG TABLET 15 MG PO ×2 (08:40→20:08)
[2023-04-06] MEDS: oxyCODONE HCL (*CRX) 5 MG TAB IR PO ×4 (08:41→21:38)
[2023-04-06] MEDS: lisinopriL 10 MG TABLET PO (08:44)
[2023-04-06] MEDS: GABAPENTIN 300 MG CAPSULE PO ×2 (08:44→16:22)
--- NOTE | 2023-04-06 08:47 | PCOTNOTE ---
Attempted to see pt. for occupational therapy evaluation. Pt. currently awaiting more thorough work up including Neurosurgery consult and possible MRI. Pt. to be seen after this time due to safety concerns and pain at this time. Nursing aware. Following.
--- NOTE | 2023-04-06 08:57 | PM.IMHP ---
H&P: HPI History of Present Illness Date/Time: 04/06/23 05:00 Chief Complaint: Uncontrolled low back pain Narrative: 77-year-old female with a past medical history of anxiety, degenerative disc disease, mild hypertension, obesity and recent microdiskectomy 03/28/2023 who presented back to the ER with intractable back pain and left groin pain. She reports that she has had left footdrop since prior to her diskectomy. The patient reports that after surgery she did have significant improvement in her pain down her right leg. She was discharged to acute rehab. However, since about 5 days into her acute rehab stay she has had worsening pain in the left leg in down the left lateral leg and into the groin. The pain is worse with movement of the hip including flexion of the hip as well as standing. The pain when she stands is unbearable. She was discharged from rehab 4 days ago. She reports that her pain since discharge has been unbearable. She has been on Neurontin, muscle relaxers and opiates. However she states that she actually was not taking muscle relaxers at home as she did not feel that they were helping all that much. She has been unable get out of bed due to pain and has actually been incontinent because she stated she hurts too much to get out of bed. She was unable to lift her leg after sleeping on her right side due to pain. She has not been having any constipation in fact she reports that it she has had more loose stools due to what she feels is too much use of stool softeners with Colace and MiraLax. She quit taking the stool softeners 3 days ago. The patient reports that she has been taking ibuprofen as well as pain medications at home. When I look at the patient's external med history it indicates she is on [place]. She is insistent that she is on oxycodone. However external med history does not support this. She reports that her pain is a little bit better with the oxycodone that is currently ordered. However she is not willing to move. She is concerned that her muscle relaxers are causing dry mouth. Her dry mouth is unrelieved despite trying moisturizing mouth washes. Review of Systems Review of Systems: 12 systems were reviewed with pertinent positives and negatives per HPI. Except as documented in the HPI, all other systems were reviewed and are negative. [facility] Past Medical History Medical History (Updated 04/06/23 @ 15:07 by Diamond Guzman, ANJELICA) Anxiety Essential hypertension Mixed hyperlipidemia Obesity (BMI 30.0-34.9) Papilloma of breast (~2013) Prediabetes Surgical History Surgical History History of section Hx of cholecystectomy (~2005) Family History Family History Mother Carcinoma of colon Father Family history of coronary artery disease Other Family history of cardiovascular disease Social History Social History (Updated 04/06/23 @ 09:00 by Gauri Johnson DO) Social History: She lives with her of 55 years. Smoking status: Never smoker Second hand tobacco smoke exposure: No Alcohol intake: former Substance use: never Lack of Transportation: No Lack of Food: Never True Current Housing: I Have Housing Concerned About Future Housing: No Difficulty Paying Gas/Electric Bills: No Difficulty Paying for Meds: No Currently Unemployed: No Education: Don't Know Difficulty w/ Childcare or Family Care: No Spiritual care concerns: No Meds Home Medications and Allergies Home Medications Medication Instructions Recorded Confirmed Type acetaminophen 325 mg tablet ([place] 650 mg PO Q4H PRN Mild Pain (1-3) 03/20/23 04/05/23 Rx (acetaminophen)) Or Fever #0 tabs buspirone 5 mg tablet 15 mg PO Q12HR #0 tabs 03/20/23 04/05/23 Rx cyclobenzaprine 10 mg tablet 10 mg PO TID PRN Muscle Spasms #0 03/20/23 04/05/23 Rx tabs paroxetine HC
--- NOTE | 2023-04-06 09:15 | PM.IMPN ---
Progress Note: A&P Assessment and Plan (1) Intractable back pain: Code(s): M54.9 - Dorsalgia, unspecified Status: Acute Assessment and Plan: s/p L3-4 microdiskectomy with neurosurgery on 03/17 discharged from hospital on 03/20 to acute rehab. She was discharged from rehab on 04/01 and according to the ED note has not been out of bed since returning home. PT/OT Neurosurgery consult given recent surgery MRI ordered for left hip and lumbar spine. pain control with acetaminophen, oxycodone, Flexeril, and gabapentin activity as tolerated (2) Left hip pain: Code(s): M25.552 - Pain in left hip Status: Acute Assessment and Plan: MRI of lumbar spine and left hip ordered see remained of plan above (3) Urinary retention: Code(s): R33.9 - Retention of urine, unspecified Status: Acute Assessment and Plan: Bladder scan of 800 ml Difficult Wilder placement. Return of 1000 ml of urine. Plan Feeding:Heart healthy Analgesia:acetaminophen, Flexeril, gabapentin, and prn morphine Thromboembolic prophylaxis: Lovenox Ulcer prophylaxis: n/a Glycemic control: n/a Bowel regimen: n/a, having loose stools Lines: PIV Antibiotics: n/a Subjective Date/time seen: 04/06/23 09:15 Interval history: 77-year-old female with a past medical history of anxiety, degenerative disc disease, mild hypertension, obesity and recent microdiskectomy 03/28/2023 who presented back to the ER with intractable back pain and left groin pain.? She reports that she has had left footdrop since prior to her diskectomy.? The patient reports that after surgery she did have significant improvement in her pain down her right leg.? She was discharged to acute rehab.? However, since about 5 days into her acute rehab stay she has had worsening pain in the left leg in down the left lateral leg and into the groin.? The pain is worse with movement of the hip including flexion of the hip as well as standing.? The pain when she stands is unbearable.? She was discharged from rehab 4 days ago.? She reports that her pain since discharge has been unbearable.? She has been on Neurontin, muscle relaxers and opiates.? However she states that she actually was not taking muscle relaxers at home as she did not feel that they were helping all that much.? She has been unable get out of bed due to pain and has actually been incontinent because she stated she hurts too much to get out of bed.? She was unable to lift her leg after sleeping on her right side due to pain.? She has not been having any constipation in fact she reports that it she has had more loose stools due to what she feels is too much use of stool softeners with Colace and MiraLax.? She quit taking the stool softeners 3 days ago. Interval history: 04/06-I spoke with Dr. Martinez with Neurosurgery who is recommending further imaging of the patient's left hip as that seems to be with most of her pain is located. She did say it would not be unreasonable to re-scanned her lumbar spine and so added that as well. Patient is having urinary retention. Bladder scan was 800 mL and she is unable to empty. A Wilder catheter was difficultly placed with return of 915 mils of urine. The patient states she did chocolate temperer bladder was full but she was unable to empty. Her pain is to her left groin and tracking and her left hip and then extends down through her left flores. She reports that the pain in her left groin is generalized and her terms she has shooting pain through her left flores. MRI has been ordered. Review of Systems Review of Systems: All systems reviewed & are unremarkable except as noted in HPI and below Exam Narrative: General: well appearing, well developed, well nourished, appears stated age. HEENT: normocephalic, atraumatic. Mucous membranes moist. EOMI, PERRLA, bilateral sclera anicteric, no conjunctival injection. Neck supple without JVD, lymphadenopathy, or bruit. Respiratory: c
[2023-04-06 09:47] VITALS: O2SAT 97
--- NOTE | 2023-04-06 12:13 | PCOTNOTE ---
Attempted to see pt. for occupational therapy evaluation. Spoke with hospitalist and neurosurgeon who agreed to pt. participation in out of bed activity. Pt. educated and informed, declined to participate at this time due to pain. Requested to participate at later time.
--- NOTE | 2023-04-06 13:15 | WPDNEUROSGCN ---
Assessment and Plan Assessment and plan (1) Acute pain of right hip: Code(s): M25.551 - Pain in right hip Status: Acute Assessment and Plan: Patient is a 77 year old female who presents with left hip and proximal left lower extremity pain approximately one week after undergoing a lumbar decompression with Dr. Ignacio. She had initially done reasonably well but notes severe and limiting pain in a different distribution than her preopereative symptoms. My suspicion for a new lumbar spine finding is low but it would not be unreasonable to obtain an MRI of the lumbar spine to rule out a new structural neural compression on the left. My primary suspicion, however, is for the hip contributing to the patient's symptoms and I would suggest that the primary team also evaluate the left hip (whether that be orthopedic consultation versus additional hip imaging) Consult date: 04/06/23 HPI: Izabela Crook is a 77 year old female with a past medical history of anxiety, degenerative disc disease, mild hypertension, obesity and recent microdiskectomy 03/28/[address] Ignacio performed for right lower extremity radicular pain. The patient was has had a history of pain beyond just the right leg, and she was discharged to rehab after surgery. At rehab, per their reports, she was ambulatory at rehab. She presented back to the ER with intractable back pain and left groin pain.? She reports that she has had left footdrop since prior to her diskectomy.? The patient reports that after surgery she did have significant improvement in her pain down her right leg.? She was discharged to acute rehab.? However, since about 5 days into her acute rehab stay she has had worsening pain in the left leg in down the proximal left lateral leg and into the groin.? The pain is worse with movement of the hip including flexion of the hip as well as standing.? The pain when she stands is unbearable.? She was discharged from rehab 4 days ago.? She reports that her pain since discharge has been unbearable.? She has been on Neurontin, muscle relaxers and opiates.? However she states that she actually was not taking muscle relaxers at home as she did not feel that they were helping all that much.? She has been unable get out of bed due to pain and has actually been incontinent because she stated she hurts too much to get out of bed.? She was unable to lift her leg after sleeping on her right side due to pain.? The patient reports that she has been taking ibuprofen as well as pain medications at home.? When I look at the patient's external med history it indicates she is on [place].? She is insistent that she is on oxycodone.? However external med history does not support this.? She reports that her pain is a little bit better with the oxycodone that is currently ordered. The patient also notes some sensory change into the left lower extremity. Other than her chronic left foot drop she denies new motor weakness. She has had xrays of the left hip since admission that show mild osteoarthritis. [facility] Past Medical History Medical History (Updated 04/06/23 @ 09:23 by Gauri Johnson DO) Anxiety Essential hypertension Mixed hyperlipidemia Obesity (BMI 30.0-34.9) Papilloma of breast (~2013) Prediabetes Surgical History Surgical History History of section Hx of cholecystectomy (~2005) Family History Family History Mother Carcinoma of colon Father Family history of coronary artery disease Other Family history of cardiovascular disease Social History Social History (Updated 04/06/23 @ 09:00 by Gauri Johnson DO) Social History: She lives with her of 55 years. Smoking status: Never smoker Second hand tobacco smoke exposure: No Alcohol intake: former Substance use: never Lack of Transportation: No Lack of Food: Ne
[2023-04-06 14:00] VITALS: BP 170/79; PULSE 102; RESP 18; TEMP 36.9; O2SAT 100
--- NOTE | 2023-04-06 14:37 | PCPTNOTE ---
Attempted PT evaluation, Pt getting Wilder catheter placed at this time. Will follow.
--- NOTE | 2023-04-06 18:47 | PC.NURSE ---
No IV access. Hospitalist aware.
[2023-04-06 20:00] VITALS: PULSE 101; RESP 16; O2SAT 98
[2023-04-06] MEDS: PARoxetine 20 MG TABLET PO (20:08)
[2023-04-06] MEDS: GABAPENTIN 300 MG CAPSULE 600 MG PO (20:08)
[2023-04-06] MEDS: CYCLOBENZAPRINE HCL 10 MG TABLET PO (20:10)
[2023-04-06 20:11] VITALS: BP 155/73; PULSE 101; RESP 16; TEMP 36.3; O2SAT 98
[2023-04-07] MEDS: ACETAMINOPHEN 500 MG TABLET PO ×4 (00:04→17:51)
[2023-04-07] MEDS: oxyCODONE HCL (*CRX) 5 MG TAB IR PO ×2 (03:15→09:25)
[2023-04-07 05:23] VITALS: BP 133/74; PULSE 84; RESP 18; TEMP 36.5; O2SAT 97
[2023-04-07 05:56] LABS: Basophils Percent Auto 0.5 % (0.2-1.2); Eosinophils Absolute Auto 0.5 K/mm3 (0-0.3); Eosinophils Percent Auto 7.2 % (0-4.4); Hematocrit 36.6 % (37.0-47.0); Hemoglobin 11.9 g/dL (12.0-15.0); Immature Granulocyte Absolute 0.06 K/mm3 (0.00-0.031); Immature Granulocyte Percent A 0.8 % (0-0.5); Lymphocytes Absolute Auto 2.23 K/mm3 (0.9-3.2); Lymphocytes Percent Auto 30.2 % (18.3-44.2); Mean Corpuscular HGB Conc 32.5 g/dl (32-36); Mean Corpuscular Volume 95.3 fl (80-100); Mean Platelet Volume 8.8 fl (7.4-10.4); Monocytes Absolute Auto 0.6 K/mm3 (0.1-0.6); Monocytes Percent Auto 8.1 % (2.6-8.5); Neutrophils Absolute Auto 3.9 K/mm3 (1.3-6.7); Neutrophils Percent Auto 53.2 % (45.5-73.1); Platelet Count Result 411 k/mm3 (150-375); Red Blood Count 3.84 M/mm3 (4.2-5.4); Red Cell Distribution Width 12.4 % (11.5-14.5); White Blood Count 7.4 K/mm3 (4.5-10.0)
[2023-04-07 06:05] LABS: Alanine Aminotransferase 25 U/L (6-35); Albumin Level 3.7 g/dL (3.5-5.1); Alkaline Phosphatase 89 U/L (38-126); Anion Gap 5 mmol/L (8-16); Aspartate Amino Transferase 21 U/L (14-36); Bilirubin,Total 0.5 mg/dL (0.2-1.3); Blood Urea Nitrogen 11 mg/dL (7-17); Calcium 9.2 mg/dL (8.4-10.2); Carbon Dioxide 30 mmol/L (22-30); Chloride 102 mmol/L (98-107); Estimated CRCL calculation 58 ml/min; Estimated Glomerular Filt Rate > 60; Glucose 132 mg/dL (65-110); Magnesium 1.9 mg/dL (1.6-2.3); Phosphorus 4.8 mg/dL (2.5-4.5); Potassium 3.8 mmol/L (3.4-5.0); Sodium 137 mmol/L (137-145)
[2023-04-07] MEDS: lisinopriL 10 MG TABLET PO (08:09)
[2023-04-07] MEDS: GABAPENTIN 300 MG CAPSULE PO ×2 (08:09→15:39)
[2023-04-07] MEDS: busPIRone HCL 5 MG TABLET 15 MG PO ×2 (08:09→20:33)
[2023-04-07] MEDS: ENOXAPARIN 40 MG/0.4 ML SYRINGE SUB-Q (08:10)
--- NOTE | 2023-04-07 08:45 | PCOTNOTE ---
Attempted to see pt. for occupational therapy evaluation. Pt. refused to participate at this time due to pain. Pt. educated on benefits of participation. Reporting she wants to try after having MRI. Nursing aware. Following.
[2023-04-07] MEDS: CYCLOBENZAPRINE HCL 10 MG TABLET PO (11:54)
[2023-04-07] MEDS: ALPRAZolam (*CRX) 0.5 MG TABLET PO (12:04)
[2023-04-07 14:00] VITALS: BP 145/79; PULSE 89; RESP 18; TEMP 36.8; O2SAT 100
--- NOTE | 2023-04-07 14:52 | PM.IMPN ---
Progress Note: A&P Assessment and Plan (1) Intractable back pain: Code(s): M54.9 - Dorsalgia, unspecified Status: Acute Assessment and Plan: s/p L3-4 microdiskectomy with neurosurgery on 03/17 discharged from hospital on 03/20 to acute rehab. She was discharged from rehab on 04/01 and according to the ED note has not been out of bed since returning home. PT/OT Neurosurgery consult given recent surgery pain control with acetaminophen, oxycodone, Flexeril, and gabapentin activity as tolerated MRI ordered for left hip and lumbar spine, report as followed MRI Left HIP Edematous change of the distal left gluteus medius muscle belly near the myotendinous junction of the trochanteric insertion region. Findings could reflect muscle strain or contusion. Correlate for inflammatory process. MRI Lumbar SPINE IMPRESSION: 1. Severe lumbar spondylosis with worsened large extrusion at L3-L4. (2) Left hip pain: Code(s): M25.552 - Pain in left hip Status: Acute Assessment and Plan: MRI of lumbar spine and left hip ordered see remained of plan above (3) Urinary retention: Code(s): R33.9 - Retention of urine, unspecified Status: Acute Assessment and Plan: Bladder scan of 800 ml Difficult Wilder placement. Return of 1000 ml of urine. Will attempt void trial when she is more ambulatory and on track for d/c. Wilder was extremely difficult to place. Clear, yellow urine present. Plan Feeding:Heart healthy Analgesia:acetaminophen, Flexeril, gabapentin, and prn morphine Thromboembolic prophylaxis: Lovenox Ulcer prophylaxis: n/a Glycemic control: n/a Bowel regimen: n/a, having loose stools Lines: PIV Antibiotics: n/a Subjective Date/time seen: 04/07/23 14:52 Interval history: 77-year-old female with a past medical history of anxiety, degenerative disc disease, mild hypertension, obesity and recent microdiskectomy 03/28/2023 who presented back to the ER with intractable back pain and left groin pain.? She reports that she has had left footdrop since prior to her diskectomy.? The patient reports that after surgery she did have significant improvement in her pain down her right leg.? She was discharged to acute rehab.? However, since about 5 days into her acute rehab stay she has had worsening pain in the left leg in down the left lateral leg and into the groin.? The pain is worse with movement of the hip including flexion of the hip as well as standing.? The pain when she stands is unbearable.? She was discharged from rehab 4 days ago.? She reports that her pain since discharge has been unbearable.? She has been on Neurontin, muscle relaxers and opiates.? However she states that she actually was not taking muscle relaxers at home as she did not feel that they were helping all that much.? She has been unable get out of bed due to pain and has actually been incontinent because she stated she hurts too much to get out of bed.? She was unable to lift her leg after sleeping on her right side due to pain.? She has not been having any constipation in fact she reports that it she has had more loose stools due to what she feels is too much use of stool softeners with Colace and MiraLax.? She quit taking the stool softeners 3 days ago. Interval history: 04/06-I spoke with Dr. Medina with Neurosurgery who is recommending further imaging of the patient's left hip as that seems to be with most of her pain is located. She did say it would not be unreasonable to re-scanned her lumbar spine and so added that as well. Patient is having urinary retention. Bladder scan was 800 mL and she is unable to empty. A Wilder catheter was difficultly placed with return of 915 mils of urine. The patient states she could tell her bladder was full but she was unable to empty. This may be because she is unable to get [facility] due to pain. Her pain is to her left groin and tracking and her left hip and the
[2023-04-07] MEDS: ONDANSETRON INJ 4 MG/2 ML VIAL IV PUSH (16:24)
--- NOTE | 2023-04-07 16:29 | WPDNEUROSGPN ---
Subjective Date/time seen: 04/07/23 16:29 Interval history: I have reviewed the patients MRI studies. MRI of the lumbar spine does show a large recurrent disc herniation at the L3-4 level that certainly could be responsible for the patient's recurrent and limiting pain. I have recommended to GIAN Guzman that the patient be placed on steroids (decadron 10mg IV x 1 and then 4mg IV q6 hours). If with steroids her pain improves then she could certainly mobilize with PT and OT. Titration of her gabapentin could also be considered. The patient had good strength to my examination while in bed yesterday (save her chronic left DF weakness) so I do not see an urgent indication for surgical intervention. However, if we are unable to obtain pain relief with oral steroids and medications we might consider surgical intervention. Dr. Ignacio is out of town this week but I will update him as to the patient's condition. Dr. Wild is companion this weekend and is aware of the patient's being in house. Please contact her with any questions or concerns as to the patient over the weekend. Objective Data Vital Signs Vital Signs: Vital Signs - 24 hr 04/06/23 20:11 04/06/23 20:00 04/07/23 05:23 Temperature 97.4 F L 97.7 F Pulse Rate 101 H 101 H 84 Respiratory Rate 16 16 18 Blood Pressure 155/73 H 133/74 Pulse Oximetry 98 98 97 Oxygen Delivery Room Air 04/07/23 10:10 Temperature Pulse Rate Respiratory Rate Blood Pressure Pulse Oximetry Oxygen Delivery Room Air Intake/Output Intake/Output: Intake & Output 04/04/23 04/05/23 04/06/23 04/07/23 23:59 23:59 23:59 23:59 Intake Total 600 480 Output Total 1900 450 Balance -1300 30 Meds/Results Medications: Active Medications Generic Name Dose Route Start Last Admin Trade Name Freq PRN Reason Stop Dose Admin Acetaminophen 500 mg 04/05/23 18:00 04/07/23 11:54 Acetaminophen 500 Mg Tablet PO 500 mg Q6H LORENA Administration Acetaminophen 500 mg 04/05/23 21:41 Acetaminophen 500 Mg Tablet PO Q6H PRN Mild Pain (1-3) Or Fever Alprazolam 0.5 mg 04/06/23 15:08 04/07/23 12:04 Alprazolam (*Crx) 0.5 Mg Tablet PO 0.5 mg ONCE PRN Administration Anxiety Bisacodyl 5 mg 04/06/23 09:18 Bisacodyl 5 Mg Tablet Ec PO QAM PRN Constipation Buspirone HCl 15 mg 04/05/23 21:50 04/07/23 08:09 Buspirone Hcl 5 Mg Tablet PO 15 mg Q12HR LORENA Administration Cyclobenzaprine HCl 10 mg 04/05/23 21:41 04/07/23 11:54 Cyclobenzaprine Hcl 10 Mg Tablet PO 10 mg TID PRN Administration Muscle Spasms Dexamethasone Sodium Phosphate 4 mg 04/07/23 18:00 Dexamethasone Sod Phos Inj 4 Mg/Ml Vial IV PUSH 04/10/23 00:01 Q6HR LORENA Enoxaparin Sodium 40 mg 04/07/23 09:00 04/07/23 08:10 Enoxaparin 40 Mg/0.4 Ml Syringe SUB-Q 40 mg DAILY LORENA Administration Gabapentin 600 mg 04/05/23 21:45 04/06/23 20:08 Gabapentin 300 Mg Capsule PO 600 mg HS LORENA Administration Gabapentin 300 mg 04/06/23 09:00 04/07/23 15:39 Gabapentin 300 Mg Capsule PO 300 mg BID@0900,1500 LORENA Administration Lisinopril 10 mg 04/06/23 09:00 04/07/23 08:09 Lisinopril 10 Mg Tablet PO 10 mg QAM LORENA Administration Morphine Sulfate 4 mg 04/07/23 12:52 Morphine Sulfate (*Crx) 4 Mg/Ml Inj IV PUSH Q4H PRN Breakthrough Pain Ondansetron HCl 4 mg 04/07/23 13:39 04/07/23 16:24 Ondansetron Inj 4 Mg/2 Ml Vial IV PUSH 4 mg Q6H PRN Administration Nausea And Vomiting Oxycodone HCl 10 mg 04/07/23 16:02 Oxycodone Hcl (*Crx) 5 Mg Tab Ir PO Q4H PRN Pain Rated 4-6 Oxycodone HCl 15 mg 04/07/23 16:02 Oxycodone Hcl (*Crx) 5 Mg Tab Ir PO Q4H PRN Pain Rated 7-10 Paroxetine HCl 20 mg 04/05/23 21:50 04/06/23 20:08 Paroxetine 20 Mg Tablet PO 20 mg HS LORENA Administration Saliva Substitute 15 ml 04/05/23 21:49 Saliva Substitute Rinse 473 Ml Bottle PO
[2023-04-07] MEDS: DEXAMETHASONE SOD PHOS INJ 4 MG/ML VIAL IV PUSH (17:51)
[2023-04-07 20:24] VITALS: BP 133/70; PULSE 108; RESP 18; TEMP 36.6; O2SAT 93
[2023-04-07] MEDS: PARoxetine 20 MG TABLET PO (20:33)
[2023-04-07] MEDS: GABAPENTIN 300 MG CAPSULE 600 MG PO (20:33)
[2023-04-08] MEDS: ACETAMINOPHEN 500 MG TABLET PO ×4 (00:55→17:01)
[2023-04-08] MEDS: DEXAMETHASONE SOD PHOS INJ 4 MG/ML VIAL IV PUSH ×5 (00:56→23:14)
[2023-04-08] MEDS: oxyCODONE HCL (*CRX) 5 MG TAB IR 10 MG PO ×2 (02:18→08:10)
[2023-04-08 04:44] VITALS: BP 125/77; PULSE 102; RESP 18; TEMP 36.3; O2SAT 96
[2023-04-08] MEDS: busPIRone HCL 5 MG TABLET 15 MG PO ×2 (08:10→21:25)
[2023-04-08] MEDS: ENOXAPARIN 40 MG/0.4 ML SYRINGE SUB-Q (08:10)
[2023-04-08] MEDS: GABAPENTIN 300 MG CAPSULE PO ×2 (08:11→14:48)
[2023-04-08] MEDS: lisinopriL 10 MG TABLET PO (08:11)
[2023-04-08] MEDS: CYCLOBENZAPRINE HCL 10 MG TABLET PO (08:11)
--- NOTE | 2023-04-08 10:09 | PM.IMPN ---
Progress Note: A&P Assessment and Plan (1) Intractable back pain: Code(s): M54.9 - Dorsalgia, unspecified Status: Acute Assessment and Plan: s/p L3-4 microdiskectomy with neurosurgery on 03/17 discharged from hospital on 03/20 to acute rehab. She was discharged from rehab on 04/01 and according to the ED note has not been out of bed since returning home. PT/OT Neurosurgery consult given recent surgery pain control with acetaminophen, oxycodone, Flexeril, and gabapentin Increased gabapentin from 300 mg PO BID to 500 mg PO BID with her night dose of 600 mg HS (total dose of 1600 mg). Total dose can increase to max of 3600 mg per day per pharmacy. Will slowly titrate up as I do not want to make her too drowsy during the day. activity as tolerated MRI ordered for left hip and lumbar spine, report as followed MRI Left HIP Edematous change of the distal left gluteus medius muscle belly near the myotendinous junction of the trochanteric insertion region. Findings could reflect muscle strain or contusion. Correlate for inflammatory process. MRI Lumbar SPINE IMPRESSION: 1. Severe lumbar spondylosis with worsened large extrusion at L3-L4. (2) Left hip pain: Code(s): M25.552 - Pain in left hip Status: Acute Assessment and Plan: MRI of lumbar spine and left hip ordered see remained of plan above (3) Urinary retention: Code(s): R33.9 - Retention of urine, unspecified Status: Acute Assessment and Plan: Bladder scan of 800 ml Difficult Wilder placement. Return of 1000 ml of urine. Will attempt void trial when she is more ambulatory and on track for d/c. Wilder was extremely difficult to place. Clear, yellow urine present. Plan Feeding:Heart healthy Analgesia:acetaminophen, Flexeril, gabapentin, and prn morphine Thromboembolic prophylaxis: Lovenox Ulcer prophylaxis: n/a Glycemic control: n/a Bowel regimen: n/a, having loose stools Lines: PIV Antibiotics: n/a Subjective Date/time seen: 04/08/23 10:09 Interval history: 77-year-old female with a past medical history of anxiety, degenerative disc disease, mild hypertension, obesity and recent microdiskectomy 03/28/2023 who presented back to the ER with intractable back pain and left groin pain.? She reports that she has had left footdrop since prior to her diskectomy.? The patient reports that after surgery she did have significant improvement in her pain down her right leg.? She was discharged to acute rehab.? However, since about 5 days into her acute rehab stay she has had worsening pain in the left leg in down the left lateral leg and into the groin.? The pain is worse with movement of the hip including flexion of the hip as well as standing.? The pain when she stands is unbearable.? She was discharged from rehab 4 days ago.? She reports that her pain since discharge has been unbearable.? She has been on Neurontin, muscle relaxers and opiates.? However she states that she actually was not taking muscle relaxers at home as she did not feel that they were helping all that much.? She has been unable get out of bed due to pain and has actually been incontinent because she stated she hurts too much to get out of bed.? She was unable to lift her leg after sleeping on her right side due to pain.? She has not been having any constipation in fact she reports that it she has had more loose stools due to what she feels is too much use of stool softeners with Colace and MiraLax.? She quit taking the stool softeners 3 days ago. Interval history: 04/06-I spoke with Dr. Medina with Neurosurgery who is recommending further imaging of the patient's left hip as that seems to be with most of her pain is located. She did say it would not be unreasonable to re-scanned her lumbar spine and so added that as well. Patient is having urinary retention. Bladder scan was 800 mL and she is unable to empty. A Wilder catheter was difficultly placed with
[2023-04-08 10:21] LABS: Basophils Percent Auto 0.1 % (0.2-1.2); Hematocrit 38.5 % (37.0-47.0); Hemoglobin 12.7 g/dL (12.0-15.0); Immature Granulocyte Absolute 0.08 K/mm3 (0.00-0.031); Immature Granulocyte Percent A 0.9 % (0-0.5); Lymphocytes Absolute Auto 0.88 K/mm3 (0.9-3.2); Lymphocytes Percent Auto 9.9 % (18.3-44.2); Mean Corpuscular Hemoglobin 30.8 pg (26-34); Mean Corpuscular Volume 93.2 fl (80-100); Monocytes Absolute Auto 0.1 K/mm3 (0.1-0.6); Monocytes Percent Auto 1.1 % (2.6-8.5); Neutrophils Absolute Auto 7.8 K/mm3 (1.3-6.7); Platelet Count Result 443 k/mm3 (150-375); Red Blood Count 4.13 M/mm3 (4.2-5.4); Red Cell Distribution Width 12.5 % (11.5-14.5); White Blood Count 8.9 K/mm3 (4.5-10.0)
[2023-04-08 10:32] LABS: Alanine Aminotransferase 24 U/L (6-35); Albumin Level 3.9 g/dL (3.5-5.1); Alkaline Phosphatase 95 U/L (38-126); Anion Gap 7 mmol/L (8-16); Aspartate Amino Transferase 23 U/L (14-36); Bilirubin,Total 0.5 mg/dL (0.2-1.3); Blood Urea Nitrogen 17 mg/dL (7-17); Calcium 9.5 mg/dL (8.4-10.2); Carbon Dioxide 25 mmol/L (22-30); Chloride 100 mmol/L (98-107); Estimated CRCL calculation 58 ml/min; Estimated Glomerular Filt Rate > 60; Glucose 276 mg/dL (65-110); Potassium 4.5 mmol/L (3.4-5.0); Sodium 132 mmol/L (137-145)
[2023-04-08 14:00] VITALS: BP 124/73; PULSE 115; RESP 18; TEMP 35.9; O2SAT 93
[2023-04-08] MEDS: GABAPENTIN 100 MG CAPSULE 200 MG PO (14:48)
[2023-04-08] MEDS: IBUPROFEN 400 MG TABLET 800 MG PO ×2 (14:48→21:26)
--- NOTE | 2023-04-08 15:27 | WPDNEUROSGPN ---
Progress Note: A&P Assessment and Plan (1) Lumbar disc herniation: Code(s): M51.26 - Other intervertebral disc displacement, lumbar region Status: Acute (2) Status post lumbar microdiscectomy: Code(s): Z98.890 - Other specified postprocedural states Status: Acute Plan Ms. Crook is a 77-year-old female who underwent right L3-4 microdiskectomy in March with Dr. Ignacio who has developed a recurrent disc herniation at that level with now left-sided symptoms radiating to the knee. This pain is not as significant as the right leg pain she had prior to surgery. Her MRI findings do show a large disc herniation with central stenosis at this level. She was started on scheduled decadron last night and is about to get up with physical therapy for the first time seemingly since she went home from rehab. I discussed with her that I would like to give the steroids more time to be effective and to have her work with physical therapy. As Dr. Medina stated, Dr. Ignacio will be updated upon his return about the patient's status. At this time, we will attempt to manage her symptoms conservatively, but please notify us if there is any change in her condition in the interim. Subjective Date/time seen: 04/08/23 15:27 Interval history: Patient is sitting up at bedside this afternoon getting ready to stand with therapy. She has not noticed much difference in her symptoms since starting steroids, although she has only had a few doses. She indicates that her left leg pain is not nearly as severe as the right leg pain she had prior to surgery. The pain radiates to about the knee only on the left side. Review of Systems Review of Systems: All systems reviewed & are unremarkable except as noted in HPI and below Exam Narrative: AOx4 Full strength in lower extremities with exception of left dorsiflexion weakness which was present prior to surgery and trace left quadriceps weakness Sensation intact to light touch Incision c/d/i with dermabond partially in place Objective Data Vital Signs Vital Signs: Vital Signs - 24 hr 04/07/23 20:24 04/07/23 20:00 04/08/23 04:44 Temperature 97.9 F 97.4 F L Pulse Rate 108 H 102 H Respiratory Rate 18 18 Blood Pressure 133/70 125/77 Pulse Oximetry 93 96 Oxygen Delivery Room Air Intake/Output Intake/Output: Intake & Output 04/05/23 04/06/23 04/07/23 04/08/23 23:59 23:59 23:59 23:59 Intake Total 600 720 480 Output Total 6682 6046 425 Balance -1300 -1530 55 Meds/Results Medications: Active Medications Generic Name Dose Route Start Last Admin Trade Name Freq PRN Reason Stop Dose Admin Acetaminophen 500 mg 04/05/23 18:00 04/08/23 12:07 Acetaminophen 500 Mg Tablet PO 500 mg Q6H LORENA Administration Acetaminophen 500 mg 04/05/23 21:41 Acetaminophen 500 Mg Tablet PO Q6H PRN Mild Pain (1-3) Or Fever Alprazolam 0.5 mg 04/06/23 15:08 04/07/23 12:04 Alprazolam (*Crx) 0.5 Mg Tablet PO 0.5 mg ONCE PRN Administration Anxiety Bisacodyl 5 mg 04/06/23 09:18 Bisacodyl 5 Mg Tablet Ec PO QAM PRN Constipation Buspirone HCl 15 mg 04/05/23 21:50 04/08/23 08:10 Buspirone Hcl 5 Mg Tablet PO 15 mg Q12HR LORENA Administration Cyclobenzaprine HCl 10 mg 04/05/23 21:41 04/08/23 08:11 Cyclobenzaprine Hcl 10 Mg Tablet PO 10 mg TID PRN Administration Muscle Spasms Dexamethasone Sodium Phosphate 4 mg 04/07/23 18:00 04/08/23 12:07 Dexamethasone Sod Phos Inj 4 Mg/Ml Vial IV PUSH 04/10/23 00:01 4 mg Q6HR LORENA Administration Enoxaparin Sodium 40 mg 04/07/23 09:00 04/08/23 08:10 Enoxaparin 40 Mg/0.4 Ml Syringe SUB-Q 40 mg DAILY LORENA Administration Gabapentin 600 mg 04/05/23 21:45 04/07/23 20:33 Gabapentin 300 Mg Capsule PO 600 mg HS LORENA Administration Gabapentin 300 mg 04/06/23 09:00 04/08/23 14:48 Gabapentin 300 Mg Capsule PO 05/08/23 14:19 300 mg BID@0900,1
[2023-04-08 17:13] LABS: Glucose Point of Care 351 mg/dl (65-105)
[2023-04-08 21:14] VITALS: BP 130/74; PULSE 108; RESP 18; TEMP 36.5; O2SAT 96
[2023-04-08] MEDS: GABAPENTIN 300 MG CAPSULE 600 MG PO (21:25)
[2023-04-08] MEDS: PARoxetine 20 MG TABLET PO (21:25)
[2023-04-08] MEDS: INSULIN ASPART (*BKC) 100 UNITS/ML SUB-Q (21:26)
[2023-04-09 03:35] LABS: Glucose Point of Care 359 mg/dl (65-105)
[2023-04-09 04:26] VITALS: BP 126/66; PULSE 101; RESP 16; TEMP 36.3; O2SAT 100
[2023-04-09] MEDS: ACETAMINOPHEN 500 MG TABLET PO ×4 (06:05→23:06)
[2023-04-09] MEDS: IBUPROFEN 400 MG TABLET 800 MG PO ×3 (06:05→21:09)
[2023-04-09] MEDS: DEXAMETHASONE SOD PHOS INJ 4 MG/ML VIAL IV PUSH ×4 (06:05→23:06)
[2023-04-09 06:17] LABS: Basophils Percent Auto 0.2 % (0.2-1.2); Hematocrit 34.8 % (37.0-47.0); Hemoglobin 11.5 g/dL (12.0-15.0); Immature Granulocyte Absolute 0.15 K/mm3 (0.00-0.031); Immature Granulocyte Percent A 1.1 % (0-0.5); Lymphocytes Absolute Auto 1.34 K/mm3 (0.9-3.2); Lymphocytes Percent Auto 9.6 % (18.3-44.2); Mean Corpuscular Hemoglobin 30.9 pg (26-34); Mean Corpuscular Volume 93.5 fl (80-100); Mean Platelet Volume 9.1 fl (7.4-10.4); Monocytes Absolute Auto 0.8 K/mm3 (0.1-0.6); Monocytes Percent Auto 5.5 % (2.6-8.5); Neutrophils Absolute Auto 11.7 K/mm3 (1.3-6.7); Neutrophils Percent Auto 83.6 % (45.5-73.1); Platelet Count Result 432 k/mm3 (150-375); Red Blood Count 3.72 M/mm3 (4.2-5.4); Red Cell Distribution Width 11.9 % (11.5-14.5)
[2023-04-09 06:32] LABS: Alanine Aminotransferase 21 U/L (6-35); Albumin Level 3.5 g/dL (3.5-5.1); Alkaline Phosphatase 83 U/L (38-126); Anion Gap 6 mmol/L (8-16); Aspartate Amino Transferase 21 U/L (14-36); Bilirubin,Total 0.4 mg/dL (0.2-1.3); Blood Urea Nitrogen 22 mg/dL (7-17); Calcium 9.3 mg/dL (8.4-10.2); Carbon Dioxide 25 mmol/L (22-30); Chloride 101 mmol/L (98-107); Estimated CRCL calculation 58 ml/min; Estimated Glomerular Filt Rate > 60; Glucose 252 mg/dL (65-110); Potassium 4.3 mmol/L (3.4-5.0); Sodium 132 mmol/L (137-145)
[2023-04-09] MEDS: GABAPENTIN 300 MG CAPSULE PO ×2 (08:15→14:45)
[2023-04-09] MEDS: busPIRone HCL 5 MG TABLET 15 MG PO ×2 (08:15→20:45)
[2023-04-09] MEDS: ENOXAPARIN 40 MG/0.4 ML SYRINGE SUB-Q (08:15)
[2023-04-09] MEDS: lisinopriL 10 MG TABLET PO (08:15)
[2023-04-09] MEDS: GABAPENTIN 100 MG CAPSULE 200 MG PO ×2 (08:16→14:45)
[2023-04-09 08:50] LABS: Glucose Point of Care 231 mg/dl (65-105)
[2023-04-09] MEDS: INSULIN ASPART (*BKC) 100 UNITS/ML SUB-Q ×4 (09:00→20:49)
--- NOTE | 2023-04-09 09:19 | P.PNIM_ITS ---
Progress Note: A&P Assessment and Plan (1) Intractable back pain: Code(s): M54.9 - Dorsalgia, unspecified Status: Acute Assessment and Plan: s/p L3-4 microdiskectomy with neurosurgery on 03/17 * discharged from hospital on 03/20 to acute rehab. She was discharged from rehab on 04/01 and according to the ED note has not been out of bed since returning home. * PT/OT * Neurosurgery consult given recent surgery * pain control with acetaminophen, oxycodone, Flexeril, and gabapentin * Increased gabapentin from 300 mg PO BID to 500 mg PO BID with her night dose of 600 mg HS (total dose of 1600 mg). Total dose can increase to max of 3600 mg per day per pharmacy. Will slowly titrate up as I do not want to make her too drowsy during the day. * activity as tolerated * MRI ordered for left hip and lumbar spine, report as followed MRI Left HIP Edematous change of the distal left gluteus medius muscle belly near the myotendinous junction of the trochanteric insertion region. Findings could reflect muscle strain or contusion. Correlate for inflammatory process. MRI Lumbar SPINE IMPRESSION: 1. Severe lumbar spondylosis with worsened large extrusion at L3-L4. (2) Left hip pain: Code(s): M25.552 - Pain in left hip Status: Acute Assessment and Plan: MRI of lumbar spine and left hip ordered see remained of plan above (3) Urinary retention: Code(s): R33.9 - Retention of urine, unspecified Status: Acute Assessment and Plan: Bladder scan of 800 ml * Difficult Wilder placement. Return of 1000 ml of urine. * Will attempt void trial when she is more ambulatory and on track for d/c. Wilder was extremely difficult to place. * Clear, yellow urine present. Plan Feeding:Heart healthy Analgesia:acetaminophen, Flexeril, gabapentin, and prn morphine Thromboembolic prophylaxis: Lovenox Ulcer prophylaxis: n/a Glycemic control: n/a Bowel regimen: n/a, having loose stools Lines: PIV Antibiotics: n/a Subjective Date/time seen: 04/09/23 09:19 Interval history: 77-year-old female with a past medical history of anxiety, degenerative disc disease, mild hypertension, obesity and recent microdiskectomy 03/28/2023 who presented back to the ER with intractable back pain and left groin pain.? She reports that she has had left footdrop since prior to her diskectomy.? The patient reports that after surgery she did have significant improvement in her pain down her right leg.? She was discharged to acute rehab.? However, since about 5 days into her acute rehab stay she has had worsening pain in the left leg in down the left lateral leg and into the groin.? The pain is worse with movement of the hip including flexion of the hip as well as standing.? The pain when she stands is unbearable.? She was discharged from rehab 4 days ago.? She reports that her pain since discharge has been unbearable.? She has been on Neurontin, muscle relaxers and opiates.? However she states that she actually was not taking muscle relaxers at home as she did not feel that they were helping all that much.? She has been unable get out of bed due to pain and has actually been incontinent because she stated she hurts too much to get out of bed.? She was unable to lift her leg after sleeping on her right side due to pain.? She has not been having any constipation in fact she reports that it she has had more loose stools due to what she feels is too much use of stool softeners with Colace and MiraLax.? She quit taking the stool softeners 3 days ago. Interval history: 04/06-I spoke with Dr. Medina with Neurosurgery who is
[2023-04-09] MEDS: oxyCODONE HCL (*CRX) 5 MG TAB IR 15 MG PO (10:37)
[2023-04-09 12:13] LABS: Glucose Point of Care 286 mg/dl (65-105)
[2023-04-09 14:00] VITALS: BP 149/76; PULSE 119; RESP 16; TEMP 36.6; O2SAT 92
[2023-04-09] MEDS: CYCLOBENZAPRINE HCL 10 MG TABLET PO ×2 (14:46→22:24)
[2023-04-09 17:26] LABS: Glucose Point of Care 294 mg/dl (65-105)
[2023-04-09] MEDS: SODIUM CHLORIDE 1 GM TABLET PO (17:39)
[2023-04-09 20:44] VITALS: BP 154/86; PULSE 100; RESP 18; TEMP 36.3; O2SAT 94
[2023-04-09] MEDS: GABAPENTIN 300 MG CAPSULE 600 MG PO (20:45)
[2023-04-09] MEDS: PARoxetine 20 MG TABLET PO (20:45)
[2023-04-09 22:02] LABS: Glucose Point of Care 326 mg/dl (65-105)
[2023-04-10 05:15] VITALS: PULSE 92; RESP 16; TEMP 36.4; O2SAT 98
[2023-04-10] MEDS: IBUPROFEN 400 MG TABLET 800 MG PO ×3 (05:17→21:04)
[2023-04-10 07:04] LABS: Basophils Percent Auto 0.3 % (0.2-1.2); Hematocrit 35.2 % (37.0-47.0); Hemoglobin 11.2 g/dL (12.0-15.0); Immature Granulocyte Absolute 0.16 K/mm3 (0.00-0.031); Immature Granulocyte Percent A 1.6 % (0-0.5); Lymphocytes Absolute Auto 1.07 K/mm3 (0.9-3.2); Lymphocytes Percent Auto 10.9 % (18.3-44.2); Mean Corpuscular HGB Conc 31.8 g/dl (32-36); Mean Corpuscular Hemoglobin 30.9 pg (26-34); Mean Corpuscular Volume 97.2 fl (80-100); Mean Platelet Volume 9.5 fl (7.4-10.4); Monocytes Absolute Auto 0.4 K/mm3 (0.1-0.6); Monocytes Percent Auto 4.2 % (2.6-8.5); Neutrophils Absolute Auto 8.2 K/mm3 (1.3-6.7); Platelet Count Result 358 k/mm3 (150-375); Red Blood Count 3.62 M/mm3 (4.2-5.4); Red Cell Distribution Width 11.9 % (11.5-14.5); White Blood Count 9.9 K/mm3 (4.5-10.0)
[2023-04-10 07:13] LABS: Alanine Aminotransferase 19 U/L (6-35); Albumin Level 3.4 g/dL (3.5-5.1); Alkaline Phosphatase 88 U/L (38-126); Anion Gap 8 mmol/L (8-16); Aspartate Amino Transferase 18 U/L (14-36); Bilirubin,Total 0.4 mg/dL (0.2-1.3); Blood Urea Nitrogen 27 mg/dL (7-17); Calcium 9.2 mg/dL (8.4-10.2); Carbon Dioxide 20 mmol/L (22-30); Chloride 100 mmol/L (98-107); Estimated CRCL calculation 58 ml/min; Estimated Glomerular Filt Rate > 60; Glucose 217 mg/dL (65-110); Potassium 4.7 mmol/L (3.4-5.0); Sodium 128 mmol/L (137-145)
[2023-04-10 08:31] LABS: Glucose Point of Care 198 mg/dl (65-105)
[2023-04-10] MEDS: busPIRone HCL 5 MG TABLET 15 MG PO ×2 (10:06→21:04)
[2023-04-10] MEDS: lisinopriL 10 MG TABLET PO (10:07)
[2023-04-10] MEDS: SODIUM CHLORIDE 1 GM TABLET PO ×3 (10:07→18:13)
[2023-04-10] MEDS: GABAPENTIN 100 MG CAPSULE 200 MG PO ×2 (10:07→18:13)
[2023-04-10] MEDS: ENOXAPARIN 40 MG/0.4 ML SYRINGE SUB-Q (10:07)
[2023-04-10] MEDS: oxyCODONE HCL (*CRX) 5 MG TAB IR 10 MG PO (10:07)
[2023-04-10] MEDS: GABAPENTIN 300 MG CAPSULE PO ×2 (10:07→18:13)
--- NOTE | 2023-04-10 11:52 | PM.IMPN ---
Progress Note: A&P Assessment and Plan (1) Intractable back pain: Code(s): M54.9 - Dorsalgia, unspecified Status: Acute Assessment and Plan: s/p L3-4 microdiskectomy with neurosurgery on 03/17 discharged from hospital on 03/20 to acute rehab. She was discharged from rehab on 04/01 and according to the ED note has not been out of bed since returning home. PT/OT Neurosurgery consult given recent surgery pain control with acetaminophen, oxycodone, Flexeril, and gabapentin Increased gabapentin from 300 mg PO BID to 500 mg PO BID with her night dose of 600 mg HS (total dose of 1600 mg). Total dose can increase to max of 3600 mg per day per pharmacy. Will slowly titrate up as I do not want to make her too drowsy during the day. activity as tolerated She completed 10 doses of IV dexamethasone 4 mg every 6 hours. MRI ordered for left hip and lumbar spine, report as followed MRI Left HIP Edematous change of the distal left gluteus medius muscle belly near the myotendinous junction of the trochanteric insertion region. Findings could reflect muscle strain or contusion. Correlate for inflammatory process. MRI Lumbar SPINE IMPRESSION: 1. Severe lumbar spondylosis with worsened large extrusion at L3-L4. (2) Left hip pain: Code(s): M25.552 - Pain in left hip Status: Acute Assessment and Plan: MRI of lumbar spine and left hip ordered see remained of plan above (3) Urinary retention: Code(s): R33.9 - Retention of urine, unspecified Status: Acute Assessment and Plan: Bladder scan of 800 ml Difficult Wilder placement. Return of 1000 ml of urine. Will attempt void trial when she is more ambulatory and on track for d/c. Wilder was extremely difficult to place. Clear, yellow urine present. Will remove Wilder today and a temp void trial know that she is able to get out of the bed to the bedside commode. Plan Feeding:Heart healthy Analgesia:acetaminophen, Flexeril, gabapentin, and prn morphine Thromboembolic prophylaxis: Lovenox Ulcer prophylaxis: n/a Glycemic control: n/a Bowel regimen: n/a, having loose stools Lines: PIV Antibiotics: n/a PT/OT recommending SNF, referrals sent per care coordination Unclear if surgery will be done this admission Subjective Date/time seen: 04/10/23 11:52 Interval history: 77-year-old female with a past medical history of anxiety, degenerative disc disease, mild hypertension, obesity and recent microdiskectomy 03/28/2023 who presented back to the ER with intractable back pain and left groin pain.? She reports that she has had left footdrop since prior to her diskectomy.? The patient reports that after surgery she did have significant improvement in her pain down her right leg.? She was discharged to acute rehab.? However, since about 5 days into her acute rehab stay she has had worsening pain in the left leg in down the left lateral leg and into the groin.? The pain is worse with movement of the hip including flexion of the hip as well as standing.? The pain when she stands is unbearable.? She was discharged from rehab 4 days ago.? She reports that her pain since discharge has been unbearable.? She has been on Neurontin, muscle relaxers and opiates.? However she states that she actually was not taking muscle relaxers at home as she did not feel that they were helping all that much.? She has been unable get out of bed due to pain and has actually been incontinent because she stated she hurts too much to get out of bed.? She was unable to lift her leg after sleeping on her right side due to pain.? She has not been having any constipation in fact she reports that it she has had more loose stools due to what she feels is too much use of stool softeners with Colace and MiraLax.? She quit taking the stool softeners 3 days ago. Interval history: 04/06-I spoke with Dr. Medina with Neurosurgery who is recommending further imaging of the patient's lef
[2023-04-10 12:17] LABS: Glucose Point of Care 228 mg/dl (65-105)
[2023-04-10] MEDS: INSULIN ASPART (*BKC) 100 UNITS/ML SUB-Q ×3 (12:28→21:07)
[2023-04-10 14:00] VITALS: BP 154/74; PULSE 98; RESP 18; TEMP 37.2; O2SAT 97
--- NOTE | 2023-04-10 16:17 | WPDNEUROSGPN ---
Progress Note: A&P Assessment and Plan (1) Status post lumbar microdiscectomy: Code(s): Z98.890 - Other specified postprocedural states Status: Acute (2) Urinary retention: Code(s): R33.9 - Retention of urine, unspecified Status: Acute (3) Lumbar disc herniation: Code(s): M51.26 - Other intervertebral disc displacement, lumbar region Status: Acute Plan Ms. Crook is a 77-year-old female with history of right L3-4 microdiske[address] performed by Dr. Ignacio on March 17 who presented with a quite large recurrent disc herniation at this level. She now has a left L3 radiculopathy and urinary retention. Her symptoms have not been significantly improved on high dose steroids or with physical therapy over the last few days. She remains essentially bed bound due to her pain. As Dr. Ignacio is out of town, I have offered to take over her surgical treatment at this time. We discussed options including continued physical therapy, outpatient [facility], or surgery. Given her severe debilitation and urinary retention, I think surgery in the form of revision L3-4 laminectomy and microdiskectomy is reasonable. We discussed risks of surgery including bleeding, pain, infection, CSF leak, possibility of another lumbar disc herniation and possibility of needing further spine surgery. She very much favors proceeding with surgery. I spoke with the OR who is able to give me time on . Plan: -She will go to OR on for revision L3-4 laminectomy, microdiskectomy -She will need to be NPO after midnight on -Please hold DVT ppx after midnight on as well Subjective Date/time seen: 04/10/23 16:17 Interval history: Unfortunately, she has not had much improvement over the weekend. She continues to have significant back and left thigh pain. She has only been able to stand at bedside but has not been able to ambulate. Wilder catheter remains in place. Review of Systems Review of Systems: All systems reviewed & are unremarkable except as noted in HPI and below Exam Narrative: AOx4 Stable left dorsiflexion weakness, otherwise she is ultimately full strength in both legs Sensation intact to light touch Incision c/d/i Objective Data Vital Signs Vital Signs: Vital Signs - 24 hr 04/09/23 20:44 04/10/23 05:15 10/09/23 14:00 Temperature 97.3 F L 97.5 F L 99 F Pulse Rate 100 92 98 Respiratory Rate 18 16 18 Blood Pressure 154/86 H 154/74 H Pulse Oximetry 94 98 97 Oxygen Delivery 04/10/23 10:07 Temperature Pulse Rate Respiratory Rate Blood Pressure Pulse Oximetry Oxygen Delivery Room Air Intake/Output Intake/Output: Intake & Output 04/07/23 04/08/23 04/09/23 04/10/23 23:59 23:59 23:59 23:59 Intake Total 911 657 1339 710 Output Total 2250 770 450 800 Balance -5645 502 4034 -90 Meds/Results Medications: Active Medications Generic Name Dose Route Start Last Admin Trade Name Freq PRN Reason Stop Dose Admin Acetaminophen 500 mg 04/05/23 18:00 04/10/23 12:19 Acetaminophen 500 Mg Tablet PO Not Given Q6H LORENA Acetaminophen 500 mg 04/05/23 21:41 Acetaminophen 500 Mg Tablet PO Q6H PRN Mild Pain (1-3) Or Fever Alprazolam 0.5 mg 04/06/23 15:08 04/07/23 12:04 Alprazolam (*Crx) 0.5 Mg Tablet PO 0.5 mg ONCE PRN Administration Anxiety Bisacodyl 5 mg 04/06/23 09:18 Bisacodyl 5 Mg Tablet Ec PO QAM PRN Constipation Buspirone HCl 15 mg 04/05/23 21:50 04/10/23 10:06 Buspirone Hcl 5 Mg Tablet PO 15 mg Q12HR LORENA Administration Cyclobenzaprine HCl 10 mg 04/05/23 21:41 04/09/23 22:24 Cyclobenzaprine Hcl 10 Mg Tablet PO 10 mg TID PRN Administration Muscle Spasms Dextrose 12.5 gm 04/08/23 17:33 Dextrose 50% 25 Gm/50 Ml Syringe IV PUSH PRN PRN Hypoglycemia Protocol Enoxaparin Sodium 40 mg 04/07/23 09:00 04/10/23 10:07 Enoxaparin 40 Mg/0.4
--- NOTE | 2023-04-10 16:21 | PC.NURSE ---
Spoke with hospitalist Diamond and michael for patient to keep barrera until after surgery on 04/13/2023
[2023-04-10 17:34] LABS: Glucose Point of Care 214 mg/dl (65-105)
[2023-04-10] MEDS: ACETAMINOPHEN 500 MG TABLET PO (18:13)
[2023-04-10] MEDS: GABAPENTIN 300 MG CAPSULE 600 MG PO (21:03)
[2023-04-10] MEDS: PARoxetine 20 MG TABLET PO (21:04)
[2023-04-10 21:16] VITALS: BP 161/82; PULSE 97; RESP 16; TEMP 36.5; O2SAT 96
[2023-04-10 22:06] LABS: Glucose Point of Care 205 mg/dl (65-105)
[2023-04-11] MEDS: IBUPROFEN 400 MG TABLET 800 MG PO ×3 (05:28→23:02)
[2023-04-11] MEDS: ACETAMINOPHEN 500 MG TABLET PO ×4 (05:28→23:30)
[2023-04-11 06:00] VITALS: BP 161/86; PULSE 83; RESP 16; TEMP 36.6; O2SAT 98
[2023-04-11 06:05] LABS: Alanine Aminotransferase 22 U/L (6-35); Albumin Level 3.5 g/dL (3.5-5.1); Alkaline Phosphatase 75 U/L (38-126); Anion Gap 6 mmol/L (8-16); Aspartate Amino Transferase 23 U/L (14-36); Bilirubin,Total 0.4 mg/dL (0.2-1.3); Blood Urea Nitrogen 27 mg/dL (7-17); Carbon Dioxide 29 mmol/L (22-30); Chloride 101 mmol/L (98-107); Estimated CRCL calculation 52 ml/min; Estimated Glomerular Filt Rate > 60; Glucose 114 mg/dL (65-110); Magnesium 2.1 mg/dL (1.6-2.3); Sodium 136 mmol/L (137-145)
[2023-04-11 06:11] LABS: Basophils Percent Auto 0.1 % (0.2-1.2); Eosinophils Absolute Auto 0.1 K/mm3 (0-0.3); Eosinophils Percent Auto 0.7 % (0-4.4); Hemoglobin 11.8 g/dL (12.0-15.0); Immature Granulocyte Absolute 0.13 K/mm3 (0.00-0.031); Immature Granulocyte Percent A 1.5 % (0-0.5); Lymphocytes Absolute Auto 2.39 K/mm3 (0.9-3.2); Lymphocytes Percent Auto 27.7 % (18.3-44.2); Mean Corpuscular HGB Conc 31.9 g/dl (32-36); Mean Corpuscular Hemoglobin 30.5 pg (26-34); Mean Corpuscular Volume 95.6 fl (80-100); Mean Platelet Volume 9.2 fl (7.4-10.4); Monocytes Absolute Auto 0.8 K/mm3 (0.1-0.6); Monocytes Percent Auto 9.5 % (2.6-8.5); Neutrophils Absolute Auto 5.2 K/mm3 (1.3-6.7); Neutrophils Percent Auto 60.5 % (45.5-73.1); Platelet Count Result 365 k/mm3 (150-375); Red Blood Count 3.87 M/mm3 (4.2-5.4); Red Cell Distribution Width 12.3 % (11.5-14.5); White Blood Count 8.6 K/mm3 (4.5-10.0)
[2023-04-11 08:20] LABS: Glucose Point of Care 97 mg/dl (65-105)
[2023-04-11] MEDS: busPIRone HCL 5 MG TABLET 15 MG PO ×2 (09:32→20:41)
[2023-04-11] MEDS: GABAPENTIN 300 MG CAPSULE PO ×2 (09:33→16:03)
[2023-04-11] MEDS: SODIUM CHLORIDE 1 GM TABLET PO (09:33)
[2023-04-11] MEDS: lisinopriL 10 MG TABLET PO (09:33)
[2023-04-11] MEDS: GABAPENTIN 100 MG CAPSULE 200 MG PO ×2 (09:33→16:03)
[2023-04-11] MEDS: ENOXAPARIN 40 MG/0.4 ML SYRINGE SUB-Q (09:33)
--- NOTE | 2023-04-11 10:01 | PM.IMPN ---
Progress Note: A&P Assessment and Plan (1) Intractable back pain: Code(s): M54.9 - Dorsalgia, unspecified Status: Acute Assessment and Plan: s/p L3-4 microdiskectomy with neurosurgery on 03/17 discharged from hospital on 03/20 to acute rehab. She was discharged from rehab on 04/01 and according to the ED note has not been out of bed since returning home. PT/OT Neurosurgery consult given recent surgery pain control with acetaminophen, oxycodone, Flexeril, and gabapentin Increased gabapentin from 300 mg PO BID to 500 mg PO BID with her night dose of 600 mg HS (total dose of 1600 mg). Total dose can increase to max of 3600 mg per day per pharmacy. Will slowly titrate up as I do not want to make her too drowsy during the day. activity as tolerated She completed 10 doses of IV dexamethasone 4 mg every 6 hours. MRI ordered for left hip and lumbar spine, report as followed MRI Left HIP Edematous change of the distal left gluteus medius muscle belly near the myotendinous junction of the trochanteric insertion region. Findings could reflect muscle strain or contusion. Correlate for inflammatory process. MRI Lumbar SPINE IMPRESSION: 1. Severe lumbar spondylosis with worsened large extrusion at L3-L4. (2) Left hip pain: Code(s): M25.552 - Pain in left hip Status: Acute Assessment and Plan: MRI of lumbar spine and left hip ordered see remained of plan above (3) Urinary retention: Code(s): R33.9 - Retention of urine, unspecified Status: Acute Assessment and Plan: Bladder scan of 800 ml Difficult Wilder placement. Return of 1000 ml of urine. Will attempt void trial when she is more ambulatory and on track for d/c. Wilder was extremely difficult to place. Clear, yellow urine present. Wilder remains until after surgery Plan Feeding:Heart healthy Analgesia:acetaminophen, Flexeril, gabapentin, and prn morphine Thromboembolic prophylaxis: Lovenox Ulcer prophylaxis: n/a Glycemic control: n/a Bowel regimen: n/a, having loose stools Lines: PIV Antibiotics: n/a PT/OT recommending SNF, referrals sent per care coordination Patient is going to surgery with Dr Wild on 04/13 at 0730 Subjective Date/time seen: 04/11/23 10:01 Interval history: 77-year-old female with a past medical history of anxiety, degenerative disc disease, mild hypertension, obesity and recent microdiskectomy 03/28/2023 who presented back to the ER with intractable back pain and left groin pain.? She reports that she has had left footdrop since prior to her diskectomy.? The patient reports that after surgery she did have significant improvement in her pain down her right leg.? She was discharged to acute rehab.? However, since about 5 days into her acute rehab stay she has had worsening pain in the left leg in down the left lateral leg and into the groin.? The pain is worse with movement of the hip including flexion of the hip as well as standing.? The pain when she stands is unbearable.? She was discharged from rehab 4 days ago.? She reports that her pain since discharge has been unbearable.? She has been on Neurontin, muscle relaxers and opiates.? However she states that she actually was not taking muscle relaxers at home as she did not feel that they were helping all that much.? She has been unable get out of bed due to pain and has actually been incontinent because she stated she hurts too much to get out of bed.? She was unable to lift her leg after sleeping on her right side due to pain.? She has not been having any constipation in fact she reports that it she has had more loose stools due to what she feels is too much use of stool softeners with Colace and MiraLax.? She quit taking the stool softeners 3 days ago. Interval history: 04/06-I spoke with Dr. Medina with Neurosurgery who is recommending further imaging of the patient's left hip as that seems to be with most of her pain is locat
[2023-04-11 11:37] LABS: Glucose Point of Care 156 mg/dl (65-105)
[2023-04-11] MEDS: CYCLOBENZAPRINE HCL 10 MG TABLET PO (11:53)
[2023-04-11 15:20] VITALS: BP 139/77; PULSE 85; RESP 18; TEMP 36.8; O2SAT 99
[2023-04-11] MEDS: SODIUM CHLORIDE 500 MG TABLET PO (16:03)
[2023-04-11 16:46] LABS: Glucose Point of Care 143 mg/dl (65-105)
[2023-04-11 20:17] VITALS: BP 140/69; PULSE 86; RESP 16; TEMP 36.3; O2SAT 98
[2023-04-11 20:28] LABS: Glucose Point of Care 130 mg/dl (65-105)
[2023-04-11 20:30] VITALS: PULSE 86; RESP 16; O2SAT 98
[2023-04-11] MEDS: oxyCODONE HCL (*CRX) 5 MG TAB IR 10 MG PO (20:41)
[2023-04-11] MEDS: PARoxetine 20 MG TABLET PO (20:41)
[2023-04-11] MEDS: GABAPENTIN 300 MG CAPSULE 600 MG PO (20:41)
[2023-04-12 05:00] VITALS: BP 136/75; PULSE 84; RESP 16; TEMP 36.2; O2SAT 98
[2023-04-12] MEDS: ACETAMINOPHEN 500 MG TABLET PO ×3 (05:38→17:15)
[2023-04-12] MEDS: IBUPROFEN 400 MG TABLET 800 MG PO ×3 (05:38→21:18)
[2023-04-12] MEDS: BISACODYL 5 MG TABLET EC PO (05:39)
[2023-04-12 06:02] LABS: Basophils Absolute Auto 0.1 K/mm3 (0.0-0.1); Basophils Percent Auto 0.6 % (0.2-1.2); Eosinophils Absolute Auto 0.4 K/mm3 (0-0.3); Eosinophils Percent Auto 4.8 % (0-4.4); Hematocrit 38.7 % (37.0-47.0); Hemoglobin 12.4 g/dL (12.0-15.0); Immature Granulocyte Absolute 0.21 K/mm3 (0.00-0.031); Immature Granulocyte Percent A 2.4 % (0-0.5); Lymphocytes Absolute Auto 2.48 K/mm3 (0.9-3.2); Lymphocytes Percent Auto 27.8 % (18.3-44.2); Mean Corpuscular Hemoglobin 30.3 pg (26-34); Mean Corpuscular Volume 94.6 fl (80-100); Mean Platelet Volume 8.9 fl (7.4-10.4); Monocytes Absolute Auto 0.7 K/mm3 (0.1-0.6); Monocytes Percent Auto 7.3 % (2.6-8.5); Neutrophils Absolute Auto 5.1 K/mm3 (1.3-6.7); Neutrophils Percent Auto 57.1 % (45.5-73.1); Platelet Count Result 359 k/mm3 (150-375); Red Blood Count 4.09 M/mm3 (4.2-5.4); Red Cell Distribution Width 12.2 % (11.5-14.5); White Blood Count 8.9 K/mm3 (4.5-10.0)
[2023-04-12 06:14] LABS: Alanine Aminotransferase 23 U/L (6-35); Albumin Level 3.3 g/dL (3.5-5.1); Alkaline Phosphatase 78 U/L (38-126); Anion Gap 4 mmol/L (8-16); Aspartate Amino Transferase 24 U/L (14-36); Bilirubin,Total 0.5 mg/dL (0.2-1.3); Blood Urea Nitrogen 24 mg/dL (7-17); Carbon Dioxide 30 mmol/L (22-30); Chloride 100 mmol/L (98-107); Estimated CRCL calculation 52 ml/min; Estimated Glomerular Filt Rate > 60; Glucose 102 mg/dL (65-110); Magnesium 2.1 mg/dL (1.6-2.3); Potassium 4.1 mmol/L (3.4-5.0); Sodium 134 mmol/L (137-145)
[2023-04-12] MEDS: oxyCODONE HCL (*CRX) 5 MG TAB IR 10 MG PO ×2 (06:35→12:34)
[2023-04-12] MEDS: SODIUM CHLORIDE 500 MG TABLET PO ×2 (08:54→17:15)
[2023-04-12] MEDS: ENOXAPARIN 40 MG/0.4 ML SYRINGE SUB-Q (08:54)
[2023-04-12] MEDS: GABAPENTIN 100 MG CAPSULE 200 MG PO ×2 (08:54→14:37)
[2023-04-12] MEDS: lisinopriL 10 MG TABLET PO (08:54)
[2023-04-12] MEDS: busPIRone HCL 5 MG TABLET 15 MG PO ×2 (08:54→21:18)
[2023-04-12] MEDS: GABAPENTIN 300 MG CAPSULE PO ×2 (08:54→14:37)
--- NOTE | 2023-04-12 09:21 | PM.IMPN ---
Progress Note: A&P Assessment and Plan (1) Intractable back pain: Code(s): M54.9 - Dorsalgia, unspecified Status: Acute Assessment and Plan: s/p L3-4 microdiskectomy with neurosurgery on 03/17 discharged from hospital on 03/20 to acute rehab. She was discharged from rehab on 04/01 and according to the ED note has not been out of bed since returning home. PT/OT Neurosurgery consult given recent surgery pain control with acetaminophen, oxycodone, Flexeril, and gabapentin Increased gabapentin from 300 mg PO BID to 500 mg PO BID with her night dose of 600 mg HS (total dose of 1600 mg). Total dose can increase to max of 3600 mg per day per pharmacy. Will slowly titrate up as I do not want to make her too drowsy during the day. activity as tolerated She completed 10 doses of IV dexamethasone 4 mg every 6 hours. MRI ordered for left hip and lumbar spine, report as followed MRI Left HIP Edematous change of the distal left gluteus medius muscle belly near the myotendinous junction of the trochanteric insertion region. Findings could reflect muscle strain or contusion. Correlate for inflammatory process. MRI Lumbar SPINE IMPRESSION: 1. Severe lumbar spondylosis with worsened large extrusion at L3-L4. 04/12: OR planned tomorrow morning. (2) Left hip pain: Code(s): M25.552 - Pain in left hip Status: Acute Assessment and Plan: MRI of lumbar spine and left hip ordered see remainder of plan above (3) Urinary retention: Code(s): R33.9 - Retention of urine, unspecified Status: Acute Assessment and Plan: Bladder scan of 800 ml Difficult Wilder placement. Return of 1000 ml of urine. Will attempt void trial when she is more ambulatory and on track for d/c. Wilder was extremely difficult to place. Clear, yellow urine present. Wilder remains until after surgery Plan Feeding:Heart healthy, NPO after midnight Analgesia:acetaminophen, Flexeril, gabapentin, and prn morphine Thromboembolic prophylaxis: Lovenox Ulcer prophylaxis: n/a Glycemic control: n/a Bowel regimen: n/a, several days of constipation, large BM 04/12 Lines: PIV Antibiotics: n/a PT/OT recommending SNF, referrals sent per care coordination Patient is going to surgery with Dr Wild on 04/13 at 0730 Time Spent With Patient Time with patient: 25 - 35 minutes Subjective Date/time seen: 04/12/23 09:21 Interval history: 77-year-old female with a past medical history of anxiety, degenerative disc disease, mild hypertension, obesity and recent microdiskectomy 03/28/2023 who presented back to the ER with intractable back pain and left groin pain.? She reports that she has had left footdrop since prior to her diskectomy.? The patient reports that after surgery she did have significant improvement in her pain down her right leg.? She was discharged to acute rehab.? However, since about 5 days into her acute rehab stay she has had worsening pain in the left leg in down the left lateral leg and into the groin.? The pain is worse with movement of the hip including flexion of the hip as well as standing.? The pain when she stands is unbearable.? She was discharged from rehab 4 days ago.? She reports that her pain since discharge has been unbearable.? She has been on Neurontin, muscle relaxers and opiates.? However she states that she actually was not taking muscle relaxers at home as she did not feel that they were helping all that much.? She has been unable get out of bed due to pain and has actually been incontinent because she stated she hurts too much to get out of bed.? She was unable to lift her leg after sleeping on her right side due to pain.? She has not been having any constipation in fact she reports that it she has had more loose stools due to what she feels is too much use of stool softeners with Colace and MiraLax.? She quit taking the stool softeners 3 days ago. Interval history: 04/06-I spoke with
[2023-04-12] MEDS: CYCLOBENZAPRINE HCL 10 MG TABLET PO ×2 (09:31→21:18)
[2023-04-12 15:30] VITALS: BP 106/58; PULSE 91; RESP 16; TEMP 36.7; O2SAT 95
[2023-04-12 19:59] VITALS: BP 119/63; PULSE 91; RESP 14; TEMP 36.8; O2SAT 95
[2023-04-12] MEDS: GABAPENTIN 300 MG CAPSULE 600 MG PO (21:18)
[2023-04-12] MEDS: PARoxetine 20 MG TABLET PO (21:19)
[2023-04-13] VITALS (13 sets, daily range): BP systolic 94–179; BP diastolic 52–89; PULSE 72–102; RESP 10–21; TEMP 35.5–36.8; O2SAT 95–100
[2023-04-13 05:48] LABS: Basophils Absolute Auto 0.1 K/mm3 (0.0-0.1); Basophils Percent Auto 0.6 % (0.2-1.2); Eosinophils Absolute Auto 0.8 K/mm3 (0-0.3); Eosinophils Percent Auto 7.2 % (0-4.4); Hematocrit 39.4 % (37.0-47.0); Hemoglobin 12.6 g/dL (12.0-15.0); Immature Granulocyte Absolute 0.36 K/mm3 (0.00-0.031); Immature Granulocyte Percent A 3.3 % (0-0.5); Lymphocytes Absolute Auto 2.49 K/mm3 (0.9-3.2); Lymphocytes Percent Auto 23.1 % (18.3-44.2); Mean Corpuscular Hemoglobin 30.6 pg (26-34); Mean Corpuscular Volume 95.6 fl (80-100); Mean Platelet Volume 9.2 fl (7.4-10.4); Monocytes Absolute Auto 0.7 K/mm3 (0.1-0.6); Neutrophils Absolute Auto 6.4 K/mm3 (1.3-6.7); Neutrophils Percent Auto 59.8 % (45.5-73.1); Platelet Count Result 373 k/mm3 (150-375); Red Blood Count 4.12 M/mm3 (4.2-5.4); Red Cell Distribution Width 12.3 % (11.5-14.5); White Blood Count 10.8 K/mm3 (4.5-10.0)
[2023-04-13] MEDS: IBUPROFEN 400 MG TABLET 800 MG PO (05:50)
[2023-04-13] MEDS: ACETAMINOPHEN 500 MG TABLET PO (05:50)
[2023-04-13 06:04] LABS: Alanine Aminotransferase 21 U/L (6-35); Albumin Level 3.5 g/dL (3.5-5.1); Alkaline Phosphatase 78 U/L (38-126); Anion Gap 2 mmol/L (8-16); Aspartate Amino Transferase 25 U/L (14-36); Bilirubin,Total 0.6 mg/dL (0.2-1.3); Blood Urea Nitrogen 24 mg/dL (7-17); Calcium 9.1 mg/dL (8.4-10.2); Carbon Dioxide 31 mmol/L (22-30); Chloride 100 mmol/L (98-107); Estimated CRCL calculation 47 ml/min; Estimated Glomerular Filt Rate 54; Glucose 136 mg/dL (65-110); Potassium 4.2 mmol/L (3.4-5.0); Sodium 133 mmol/L (137-145)
--- NOTE | 2023-04-13 07:16 | WPDANESEPPF ---
Anes - Initial Pre Proc Eval Procedure: Operation Date: 04/13/23 07:30 Proposed Procedures p Revision L3-4 Microdiscectomy - Haylee Wild MD Date/Time: 04/13/23 07:16 Surgeon: Gerard Tellez MD Pre Op Diagnosis: BACK PAIN Patient Data Age: 77 Gender: F Height: 1.68 m Weight: 84.1 kg Last Vital Signs Temp 97.1 F L 04/13/23 06:23 Pulse 88 04/13/23 06:23 Resp 14 04/13/23 06:23 BP 123/67 04/13/23 06:23 Pulse Ox 100 04/13/23 06:23 O2 Del Method Room Air 04/13/23 06:23 Allergies Allergy/AdvReac Type Severity Reaction Status Date / Time No Known Allergies Allergy Mild Verified 04/05/23 17:14 Home Medications Medication Instructions Recorded Confirmed Type acetaminophen 325 mg tablet (Mapap 650 mg PO Q4H PRN Mild Pain (1-3) 03/20/23 04/05/23 Rx (acetaminophen)) Or Fever #0 tabs buspirone 5 mg tablet 15 mg PO Q12HR #0 tabs 03/20/23 04/05/23 Rx cyclobenzaprine 10 mg tablet 10 mg PO TID PRN Muscle Spasms #0 03/20/23 04/05/23 Rx tabs paroxetine HCl 20 mg tablet 20 mg PO HS #0 tabs 03/20/23 04/05/23 Rx gabapentin 300 mg capsule 300 mg PO BID@0900,1500 #60 caps 04/01/23 04/05/23 Rx (Neurontin) gabapentin 600 mg tablet 600 mg PO HS #30 tabs 04/01/23 04/05/23 Rx hydrocodone 5 mg-acetaminophen 325 1 tablet PO Q4H PRN pain #20 tabs 04/01/23 04/05/23 Rx mg tablet lisinopril 10 mg tablet 10 mg PO QAM #30 tabs 04/01/23 04/05/23 Rx saliva stimulant comb. no.3 1 spray PO Q8H PRN Dry Mouth #44.3 04/01/23 04/05/23 Rx (Biotene Moisturizing Mouth mL mucosal spray) ibuprofen 400 mg tablet 800 mg PO TID PRN PAIN 4-6 #60 tabs 04/03/23 04/05/23 Rx Laboratory Tests 04/13/23 05:12 WBC 10.8 H K/mm3 (4.5-10.0) RBC 4.12 L M/mm3 (4.2-5.4) Hgb 12.6 g/dL (12.0-15.0) Hct 39.4 % (37.0-47.0) MCV 95.6 fl (80-100) MCH 30.6 pg (26-34) MCHC 32.0 g/dl (32-36) RDW 12.3 % (11.5-14.5) Plt Count 373 k/mm3 (150-375) MPV 9.2 fl (7.4-10.4) Immature Gran % (Auto) 3.3 H % (0-0.5) Neut % (Auto) 59.8 % (45.5-73.1) Lymph % (Auto) 23.1 % (18.3-44.2) Jewell % (Auto) 6.0 % (2.6-8.5) Eos % (Auto) 7.2 H % (0-4.4) Baso % (Auto) 0.6 % (0.2-1.2) Lymph # (Auto) 2.49 K/mm3 (0.9-3.2) Jewell # (Auto) 0.7 H K/mm3 (0.1-0.6) Eos # (Auto) 0.8 H K/mm3 (0-0.3) Baso # (Auto) 0.1 K/mm3 (0.0-0.1) Abs Immat Gran (auto) 0.36 H K/mm3 (0.00-0.031) Absolute Neuts (auto) 6.4 K/mm3 (1.3-6.7) Absolute Nucleated RBC 0.0 K/mm3 (0.0-0.012) Nucleated RBC % 0.0 % (0.0-0.2) Sodium 133 L mmol/L (137-145) Potassium 4.2 mmol/L (3.4-5.0) Chloride 100 mmol/L (98-107) Carbon Dioxide 31 H mmol/L (22-30) Anion Gap 2 L mmol/L (8-16) BUN 24 H mg/dL (7-17) Creatinine 1.00 mg/dL (0.7-1.0) Estim Creat Clear Calc 47 ml/min Estimated GFR 54 L (59 - ) Glucose 136 H mg/dL (65-110) Calcium 9.1 mg/dL (8.4-10.2) Total Bilirubin 0.6 mg/dL (0.2-1.3) AST 25 U/L (14-36) ALT 21 U/L (6-35) Alkaline Phosphatase 78 U/L (38-126) Total Protein 6.0 L g/dL (6.3-8.2) Albumin 3.5 g/dL (3.5-5.1) Patient hx anesthesia problems: none Family hx anesthesia problems: none Results Review: All pre-operative results and documents have been reviewed as part of the pre-operative evaluation. [facility] Past Medical History Medical History (Updated 04/06/23 @ 15:07 by Diamond Guzman APRN) Anxiety Essential hypertension Mixed hyperlipidemia Obesity (BMI 30.0-34.9) Papilloma of breast (~2013) Prediabetes Surgical History Surgical History (Updated 04/08/23 @ 15:33 by Haylee Wild MD) History of section Hx of cholecystectomy (~2005) Family History Family History Mother Carcinoma of colon Father Family history of coronary artery disease Other Fa
--- NOTE | 2023-04-13 07:18 | WPDHPUPDATE1 ---
History and Physical Update Update Date/Time: 04/13/23 07:18 History and Physical has been reviewed, including an updated exam of the patient. There are NO changes in the patient's condition. Risks, benefits, and alternatives have been discussed and questions answered. Patient agrees to proceed with procedure.
--- NOTE | 2023-04-13 07:54 | PC.NURSE ---
Patient off of unit to surgery
[2023-04-13] MEDS: ceFAZolin 2 GM/D5W 50 ML 2 GM/50 ML BAG IVPB ×2 (07:55→15:50)
[2023-04-13] MEDS: BUPIVACAINE/EPINEPHRINE 0.5% 50 ML VIAL INFILTRATE (08:19)
--- NOTE | 2023-04-13 09:23 | PM.OP ---
Procedure Note - Brief Procedure Note - Brief Date of procedure: 04/13/23 Recurrent disc herniation L3-4 Post-op diagnosis: Same Procedure performed: Revision L3 laminectomy for L3-4 microdiskectomy Use of C-arm for fluoroscopy Use of microscope for microsurgical dissection Surgeon: Haylee Wild MD Anesthesia: GETA Findings: Spinous process and left L3 lamina removed. Difficulty dura from PLL/ventral epidural space leading to small left-sided durotomy. Disc herniation ultimately identified and removed. Durotomy repaired with duragen and Duraseal Estimated blood loss (mL): 25 Urine output (mL): 250 Drains: No Packing: No Pathology: None sent Complications: Other complications (Small durotomy repaired with duragen and duraseal) Condition: Stable Disposition: PACU
[2023-04-13] MEDS: LACTATED RINGERS 1,000 ML 30 ML IV CONT ×2 (09:29→10:20)
--- NOTE | 2023-04-13 09:29 | W.PM.PROC2 ---
Procedure Note - Detailed Date of Procedure 04/13/23 Pre-op Diagnosis Recurrent L3-4 disc herniation Post-op Diagnosis Same Procedure Performed Revision L3-4 laminectomy and microdiskectomy Use of fluoroscopy for localization Use of microscope for microsurgical dissection Surgeon Haylee Wild MD Customer Management Specialist Tadeo Damon General Indications Ms. Crook is a 77-year-old female who underwent a right L3-4 microdiskectomy on March [address] Ignacio who developed debilitating back pain radiating into the left groin and thigh post-operatively to the point of being unable to ambulate and having urinary retention. Imaging showed a large recurrent disc herniation at L3-4. We attempted high-dose steroids, pain control, and physical therapy without improvement. Surgery in the form of revision L3-4 microdiskectomy was recommended. Risks including bleeding, pain, infection, CSF leak, nerve damage, weakness, paresthesias, and anesthetic complications were discussed. The patient provided written informed consent to proceed. Description of Procedure The patient was brought to the operating room, and general anesthesia was induced. The patient was placed prone on the Min frame, and all pressure points were padded. Compression devices were placed on the patient's calves. The previous incision was marked. The area was prepped and draped in usual sterile fashion. A time out was conducted, and pre-operative antibiotics were administered. Local anesthesia was injected into the planned incision. The pre-existing skin incision was reopened with a 10-blade scalpel, and dissection was carried down with the monopolar cautery to open the fascia. The spinous process and left lamina at L3 were exposed. An upgoing curette was placed under the L3 lamina, and the C-arm was brought in to confirm the correct level. A self-retaining retractor was placed. The spinous process was removed with a Leksell. The microscope was draped and brought into the field. The laminectomy was completed with the high-speed drill. The currette was used to separate the ligamentum from the bone. The ligamentum flavum was opened with a currette and removed with Kerrisons. The dura was identified; post-surgical changes were noted at the cranial portion of the dura, even on the left side, which made separation of the dura from the ventral epidural space difficult. I therefore worked caudally to attempt to separate the dura. In doing so, I created a small durotomy on the lateral aspect of the dura near the ventral surface. I removed further soft tissue caudally to attempt to identify a better plane to access the epidural space. I was able to separate the dura and identify the disc herniation which I removed with a nerve hook. Hemostasis was achieved with Surgiflo and cottonoid patties. There was no spontaneous flow of CSF once the dura was no longer being retracted, but the durotomy was covered with a small piece of Duragen followed by Duraseal. The area was copiously irrigated. The fascia was closed with 0-Vicryl in an interrupted fashion. The soft tissue was again copiously irrigated. The dermis was closed with 2-0 and 3-0 interrupted Vicryl. The skin was closed with subcuticular 4-0 monocryl. This was covered with skin glue. The patient was returned supine on the stretcher, extubated, and transferred to PACU without incident. Codes: 46838, 58638 Implants 1x1 piece of Duragen Estimated Blood Loss 25 Urine Output 250 Drains No Packing No Pathology None sent Complications Other complications (Small durotomy on left lateral aspect near the ventral side which was repaired with duragen and Duraseal) Condition Stable Disposition PACU [facility] Billing Surgery - Charge Forward: Surgery Billing
--- NOTE | 2023-04-13 10:04 | PM.IMPN ---
Progress Note: A&P Assessment and Plan (1) Intractable back pain: Code(s): M54.9 - Dorsalgia, unspecified Status: Acute Assessment and Plan: s/p L3-4 microdiskectomy with neurosurgery on 03/17 discharged from hospital on 03/20 to acute rehab. She was discharged from rehab on 04/01 and according to the ED note has not been out of bed since returning home. PT/OT Neurosurgery consult given recent surgery pain control with acetaminophen, oxycodone, Flexeril, and gabapentin Increased gabapentin from 300 mg PO BID to 500 mg PO BID with her night dose of 600 mg HS (total dose of 1600 mg). Total dose can increase to max of 3600 mg per day per pharmacy. Will slowly titrate up as I do not want to make her too drowsy during the day. activity as tolerated She completed 10 doses of IV dexamethasone 4 mg every 6 hours. MRI ordered for left hip and lumbar spine, report as followed MRI Left HIP Edematous change of the distal left gluteus medius muscle belly near the myotendinous junction of the trochanteric insertion region. Findings could reflect muscle strain or contusion. Correlate for inflammatory process. MRI Lumbar SPINE IMPRESSION: 1. Severe lumbar spondylosis with worsened large extrusion at L3-L4. 04/12: OR planned tomorrow morning. 04/13: Revision L3-4 laminectomy and microdiskectomy in OR this morning with Dr. Haylee Wild (2) Left hip pain: Code(s): M25.552 - Pain in left hip Status: Acute Assessment and Plan: MRI of lumbar spine and left hip ordered see remainder of plan above (3) Urinary retention: Code(s): R33.9 - Retention of urine, unspecified Status: Acute Assessment and Plan: Bladder scan of 800 ml Difficult Wilder placement. Return of 1000 ml of urine. Will attempt void trial when she is more ambulatory and on track for d/c. Wilder was extremely difficult to place. Clear, yellow urine present. Wilder remains until after surgery Plan Feeding:Heart healthy Analgesia:acetaminophen, Flexeril, gabapentin, oxycodone and prn Diluadid Thromboembolic prophylaxis: On hold due to spinal surgery Ulcer prophylaxis: n/a Glycemic control: n/a Bowel regimen: n/a Lines: PIV Antibiotics: n/a PT/OT recommending SNF, referrals sent per care coordination Lay flat for 24 hours, IV Dilaudid ordered for severe pain. Patient tearful Time Spent With Patient Time with patient: 25 - 35 minutes Subjective Date/time seen: 04/13/23 10:04 Interval history: 77-year-old female with a past medical history of anxiety, degenerative disc disease, mild hypertension, obesity and recent microdiskectomy 03/28/2023 who presented back to the ER with intractable back pain and left groin pain.? She reports that she has had left footdrop since prior to her diskectomy.? The patient reports that after surgery she did have significant improvement in her pain down her right leg.? She was discharged to acute rehab.? However, since about 5 days into her acute rehab stay she has had worsening pain in the left leg in down the left lateral leg and into the groin.? The pain is worse with movement of the hip including flexion of the hip as well as standing.? The pain when she stands is unbearable.? She was discharged from rehab 4 days ago.? She reports that her pain since discharge has been unbearable.? She has been on Neurontin, muscle relaxers and opiates.? However she states that she actually was not taking muscle relaxers at home as she did not feel that they were helping all that much.? She has been unable get out of bed due to pain and has actually been incontinent because she stated she hurts too much to get out of bed.? She was unable to lift her leg after sleeping on her right side due to pain.? She has not been having any constipation in fact she reports that it she has had more loose stools due to what she feels is too much use of stool softeners with Colace and MiraLax.? She quit taking the sto
[2023-04-13] MEDS: fentaNYL CITRATE INJ (*CRX) 100 MCG/2 ML VIAL 25 MCG IV PUSH ×4 (10:18→10:40)
--- NOTE | 2023-04-13 11:58 | PCNWS ---
Weekly nutritional screen. Patient is tolerating current diet with adequate intake. No weight loss reported. No nutritional needs at this time.
[2023-04-13 11:59] LABS: Glucose Point of Care 169 mg/dl (65-105)
[2023-04-13] MEDS: HYDROmorphone HCL INJ (*CRX) 1 MG/ML SYR 0.5 MG IV PUSH ×3 (12:31→20:33)
[2023-04-13] MEDS: GABAPENTIN 100 MG CAPSULE 200 MG PO (15:45)
[2023-04-13] MEDS: GABAPENTIN 300 MG CAPSULE PO (15:45)
[2023-04-13] MEDS: SODIUM CHLORIDE 500 MG TABLET PO (15:50)
[2023-04-13 17:30] LABS: Glucose Point of Care 211 mg/dl (65-105)
--- NOTE | 2023-04-13 18:45 | WPDNEUROSGPN ---
Progress Note: A&P Assessment and Plan (1) Status post lumbar microdiscectomy: Code(s): Z98.890 - Other specified postprocedural states Status: Acute (2) Lumbar disc herniation: Code(s): M51.26 - Other intervertebral disc displacement, lumbar region Status: Acute Plan s/p revision L3-4 microdiskectomy on 04/13 with iatrogenic CSF leak, repaired with Duragen and Duraseal Plan: -Flat bedrest until 10am on Monday -Ok to mobilize and work with therapy after 10am tomorrow -Ok to restart DVT ppx tomorrow -Recommend removing barrera catheter tomorrow once off bedrest -If her leg pain returns or becomes more significant, I would recommend restarting steroids Subjective Date/time seen: 04/13/23 18:45 Interval history: Patient had severe left leg pain immediately after surgery which is better now. Overall, she thinks she feels about the same if not better compared to pre-op. Review of Systems Review of Systems: All systems reviewed & are unremarkable except as noted in HPI and below Exam Narrative: AOx4 Full strength in lower extremities Sensation intact to light touch Objective Data Vital Signs Vital Signs: Vital Signs - 24 hr 04/12/23 19:59 04/13/23 05:53 04/13/23 06:23 Temperature 98.2 F 98.2 F 97.1 F L Pulse Rate 91 88 88 Respiratory Rate 14 16 14 Blood Pressure 119/63 135/68 123/67 Pulse Oximetry 95 95 100 Oxygen Delivery Room Air Oxygen Flow Rate 04/13/23 09:29 04/13/23 09:45 04/13/23 10:00 Temperature 97.2 F L Pulse Rate 72 78 79 Respiratory Rate 10 L 12 12 Blood Pressure 94/52 L 130/70 156/80 H Pulse Oximetry 100 100 100 Oxygen Delivery Simple Face Mask Simple Face Mask Simple Face Mask Oxygen Flow Rate 8 8 8 04/13/23 10:15 04/13/23 10:30 04/13/23 10:13 Temperature 96.5 F L Pulse Rate 76 79 85 Respiratory Rate 12 12 18 Blood Pressure 158/81 H 150/89 H 179/89 H Pulse Oximetry 96 96 100 Oxygen Delivery Nasal Cannula Nasal Cannula Oxygen Flow Rate 2 2 04/13/23 10:43 04/13/23 11:13 04/13/23 15:02 Temperature 96.5 F L 96 F L 97.8 F Pulse Rate 86 89 89 Respiratory Rate 18 16 18 Blood Pressure 179/86 H 169/73 H 171/77 H Pulse Oximetry 99 100 100 Oxygen Delivery Oxygen Flow Rate Intake/Output Intake/Output: Intake & Output 04/10/23 04/11/23 04/12/23 04/13/23 23:59 23:59 23:59 23:59 Intake Total 1570 1100 1620 1320 Output Total 1700 1900 1200 1900 Balance -130 -800 420 -580 Meds/Results Medications: Active Medications Generic Name Dose Route Start Last Admin Trade Name Freq PRN Reason Stop Dose Admin Acetaminophen 1,000 mg 04/13/23 09:15 Acetaminophen 500 Mg Tablet PO Q6H PRN Mild Pain (1-3) Al Hydrox/Mg Hydrox/Simethicone 20 ml 04/13/23 09:13 Mag Hydrox/Al Hydrox/Simeth 30 Ml Udc PO Q4H PRN Indigestion/Heartburn Alprazolam 0.5 mg 04/06/23 15:08 04/07/23 12:04 Alprazolam (*Crx) 0.5 Mg Tablet PO 0.5 mg ONCE PRN Administration Anxiety Bisacodyl 5 mg 04/06/23 09:18 04/12/23 05:39 Bisacodyl 5 Mg Tablet Ec PO 5 mg QAM PRN Administration Constipation Buspirone HCl 15 mg 04/05/23 21:50 04/13/23 08:18 Buspirone Hcl 5 Mg Tablet PO Not Given Q12HR LORENA Cyclobenzaprine HCl 10 mg 04/13/23 09:15 Cyclobenzaprine Hcl 10 Mg Tablet PO TID PRN Muscle Spasms Dextrose 12.5 gm 04/08/23 17:33 Dextrose 50% 25 Gm/50 Ml Syringe IV PUSH PRN PRN Hypoglycemia Protocol Docusate Sodium 100 mg 04/13/23 21:00 Docusate Sodium 100 Mg Capsule PO Q12HR LORENA Gabapentin 600 mg 04/05/23 21:45 04/12/23 21:18 Gabapentin 300 Mg Capsule PO 600 mg HS LORENA Administration Gabapentin 300 mg 04/06/23 09:00 04/13/23 15:45 Gabapentin 300 Mg Capsule PO 05/08/23 14:19 300 mg BID@0900,1500 LORENA Administration Gabapentin 200 mg 10/07/23 15:00 04/13/23 15:45 Gabapentin 100 Mg Capsule PO 200 mg BID@0900,1500 LORENA
[2023-04-13] MEDS: oxyCODONE HCL (*CRX) 5 MG TAB IR 10 MG PO (19:45)
[2023-04-13] MEDS: DOCUSATE SODIUM 100 MG CAPSULE PO (20:34)
[2023-04-13] MEDS: PARoxetine 20 MG TABLET PO (20:34)
[2023-04-13] MEDS: GABAPENTIN 300 MG CAPSULE 600 MG PO (20:34)
[2023-04-13] MEDS: busPIRone HCL 5 MG TABLET 15 MG PO (20:34)
[2023-04-14] MEDS: ceFAZolin 2 GM/D5W 50 ML 2 GM/50 ML BAG IVPB ×2 (00:04→10:57)
[2023-04-14] MEDS: HYDROmorphone HCL INJ (*CRX) 1 MG/ML SYR 0.5 MG IV PUSH ×2 (00:06→10:49)
[2023-04-14 00:13] VITALS: BP 160/84; PULSE 101; RESP 18; TEMP 36.8; O2SAT 96
[2023-04-14 04:13] VITALS: BP 128/67; PULSE 103; RESP 18; TEMP 37.1; O2SAT 97
[2023-04-14] MEDS: oxyCODONE HCL (*CRX) 5 MG TAB IR 10 MG PO ×2 (05:35→13:09)
[2023-04-14 05:41] LABS: Basophils Percent Auto 0.2 % (0.2-1.2); Eosinophils Absolute Auto 0.1 K/mm3 (0-0.3); Eosinophils Percent Auto 0.8 % (0-4.4); Hematocrit 37.3 % (37.0-47.0); Hemoglobin 12.1 g/dL (12.0-15.0); Immature Granulocyte Absolute 0.28 K/mm3 (0.00-0.031); Immature Granulocyte Percent A 1.8 % (0-0.5); Lymphocytes Absolute Auto 2.07 K/mm3 (0.9-3.2); Lymphocytes Percent Auto 13.6 % (18.3-44.2); Mean Corpuscular HGB Conc 32.4 g/dl (32-36); Mean Corpuscular Hemoglobin 30.1 pg (26-34); Mean Corpuscular Volume 92.8 fl (80-100); Monocytes Absolute Auto 1.1 K/mm3 (0.1-0.6); Neutrophils Absolute Auto 11.6 K/mm3 (1.3-6.7); Neutrophils Percent Auto 76.6 % (45.5-73.1); Platelet Count Result 378 k/mm3 (150-375); Red Blood Count 4.02 M/mm3 (4.2-5.4); Red Cell Distribution Width 12.2 % (11.5-14.5); White Blood Count 15.2 K/mm3 (4.5-10.0)
[2023-04-14 06:03] LABS: Potassium 4.2 mmol/L (3.4-5.0)
[2023-04-14 06:06] LABS: Alanine Aminotransferase 18 U/L (6-35); Albumin Level 3.4 g/dL (3.5-5.1); Alkaline Phosphatase 91 U/L (38-126); Anion Gap 2 mmol/L (8-16); Aspartate Amino Transferase 23 U/L (14-36); Bilirubin,Total 0.6 mg/dL (0.2-1.3); Blood Urea Nitrogen 18 mg/dL (7-17); Calcium 8.8 mg/dL (8.4-10.2); Carbon Dioxide 30 mmol/L (22-30); Chloride 98 mmol/L (98-107); Estimated CRCL calculation 58 ml/min; Estimated Glomerular Filt Rate > 60; Glucose 186 mg/dL (65-110); Sodium 130 mmol/L (137-145)
[2023-04-14] MEDS: SODIUM CHLORIDE 500 MG TABLET PO ×2 (08:25→18:14)
[2023-04-14] MEDS: lisinopriL 10 MG TABLET PO (08:25)
[2023-04-14] MEDS: busPIRone HCL 5 MG TABLET 15 MG PO ×2 (08:25→21:30)
[2023-04-14] MEDS: GABAPENTIN 300 MG CAPSULE PO ×2 (08:25→15:38)
[2023-04-14] MEDS: DOCUSATE SODIUM 100 MG CAPSULE PO (08:25)
[2023-04-14] MEDS: GABAPENTIN 100 MG CAPSULE 200 MG PO ×2 (08:25→15:38)
[2023-04-14 08:26] LABS: Glucose Point of Care 171 mg/dl (65-105)
--- NOTE | 2023-04-14 10:32 | PCNWS ---
Weekly nutritional screen. Patient is tolerating current diet with adequate intake. No weight loss reported. No nutritional needs at this time.
[2023-04-14 10:33] VITALS: BP 125/59; PULSE 100; RESP 18; TEMP 36.4; O2SAT 96
--- NOTE | 2023-04-14 10:40 | PM.IMPN ---
Progress Note: A&P Assessment and Plan (1) Intractable back pain: Code(s): M54.9 - Dorsalgia, unspecified Status: Acute Assessment and Plan: s/p L3-4 microdiskectomy with neurosurgery on 03/17 discharged from hospital on 03/20 to acute rehab. She was discharged from rehab on 04/01 and according to the ED note has not been out of bed since returning home. PT/OT Neurosurgery consult given recent surgery pain control with acetaminophen, oxycodone, Flexeril, and gabapentin Increased gabapentin from 300 mg PO BID to 500 mg PO BID with her night dose of 600 mg HS (total dose of 1600 mg). Total dose can increase to max of 3600 mg per day per pharmacy. Will slowly titrate up as I do not want to make her too drowsy during the day. activity as tolerated She completed 10 doses of IV dexamethasone 4 mg every 6 hours. MRI ordered for left hip and lumbar spine, report as followed MRI Left HIP Edematous change of the distal left gluteus medius muscle belly near the myotendinous junction of the trochanteric insertion region. Findings could reflect muscle strain or contusion. Correlate for inflammatory process. MRI Lumbar SPINE IMPRESSION: 1. Severe lumbar spondylosis with worsened large extrusion at L3-L4. 04/12: OR planned tomorrow morning. 04/13: Revision L3-4 laminectomy and microdiskectomy in OR this morning with Dr. Haylee Wild 04/14: Incisional pain, left leg pain continues as noted in HPI. IV steroids were started (2) Left hip pain: Code(s): M25.552 - Pain in left hip Status: Acute Assessment and Plan: MRI of lumbar spine and left hip ordered see remainder of plan above (3) Urinary retention: Code(s): R33.9 - Retention of urine, unspecified Status: Acute Assessment and Plan: Bladder scan of 800 ml Difficult Wilder placement. Return of 1000 ml of urine. Will attempt void trial when she is more ambulatory and on track for d/c. Wilder was extremely difficult to place. Clear, yellow urine present. Wilder remains until after surgery 04/14: Wilder catheter to be removed per Neurosurgery, patient reluctant but agreeable Plan Feeding:Heart healthy Analgesia:acetaminophen, Flexeril, gabapentin, oxycodone and prn Diluadid Thromboembolic prophylaxis: On hold due to spinal surgery Ulcer prophylaxis: n/a Glycemic control: n/a,, consider starting Accu-Cheks and supplemental insulin with steroids restarted Bowel regimen: n/a Lines: PIV Antibiotics: n/a PT/OT recommending SNF, referrals sent per care coordination IV steroids restarted. Wilder catheter removed. Time Spent With Patient Time with patient: Greater than 35 minutes Subjective Date/time seen: 04/14/23 10:40 Interval history: 77-year-old female with a past medical history of anxiety, degenerative disc disease, mild hypertension, obesity and recent microdiskectomy 03/28/2023 who presented back to the ER with intractable back pain and left groin pain.? She reports that she has had left footdrop since prior to her diskectomy.? The patient reports that after surgery she did have significant improvement in her pain down her right leg.? She was discharged to acute rehab.? However, since about 5 days into her acute rehab stay she has had worsening pain in the left leg in down the left lateral leg and into the groin.? The pain is worse with movement of the hip including flexion of the hip as well as standing.? The pain when she stands is unbearable.? She was discharged from rehab 4 days ago.? She reports that her pain since discharge has been unbearable.? She has been on Neurontin, muscle relaxers and opiates.? However she states that she actually was not taking muscle relaxers at home as she did not feel that they were helping all that much.? She has been unable get out of bed due to pain and has actually been incontinent because she stated she hurts too much to get out of bed.? She was unable to lift her leg after sleep
[2023-04-14] MEDS: DEXAMETHASONE SOD PHOS INJ 4 MG/ML VIAL IV PUSH ×3 (10:49→23:06)
[2023-04-14] MEDS: CYCLOBENZAPRINE HCL 10 MG TABLET PO (13:09)
--- NOTE | 2023-04-14 13:56 | PCPTNOTE ---
pt has had revision of laminectomy/discectomy and needs reevaluation. Attempted reevaluation 1350- pt just finishing with OT and refused PT at this time.
--- NOTE | 2023-04-14 14:21 | WPDANESPN ---
Anes - Prog Note Post-Op Date/Time: 04/14/23 14:21 Cardiovascular status: normal Respiratory status: normal Airway patency: baseline Mental status: baseline Post-Op hydration status: normal Vital Signs: Last Vital Signs Temp 36.4 C 04/14/23 10:33 Pulse 100 04/14/23 10:33 Resp 18 04/14/23 10:33 BP 125/59 L 04/14/23 10:33 Pulse Ox 96 04/14/23 10:33 O2 Del Method Room Air 04/13/23 20:00 O2 Flow Rate 2 04/13/23 10:30 Pain Score (VAS): 08/12 I/O: Intake & Output 04/13/23 04/14/23 04/14/23 23:59 07:59 15:59 Intake Total 170 650 290 Output Total 1000 Balance 170 -350 290 Laboratory Tests 04/14/23 05:23 04/14/23 05:23 04/13/23 04/14/23 04/14/23 17:24 05:23 08:18 WBC 15.2 H RBC 4.02 L Hgb 12.1 Hct 37.3 MCV 92.8 MCH 30.1 MCHC 32.4 RDW 12.2 Plt Count 378 H MPV 9.0 Immature Gran % (Auto) 1.8 H Neut % (Auto) 76.6 H Lymph % (Auto) 13.6 L [place] % (Auto) 7.0 Eos % (Auto) 0.8 Baso % (Auto) 0.2 Lymph # (Auto) 2.07 [place] # (Auto) 1.1 H Eos # (Auto) 0.1 Baso # (Auto) 0.0 Abs Immat Gran (auto) 0.28 H Absolute Neuts (auto) 11.6 H Absolute Nucleated RBC 0.0 Nucleated RBC % 0.0 Sodium 130 L Potassium 4.2 Chloride 98 Carbon Dioxide 30 Anion Gap 2 L BUN 18 H Creatinine 0.80 Estim Creat Clear Calc 58 Estimated GFR > 60 Glucose 186 H POC Capillary Glucose 211 H 171 H Calcium 8.8 Total Bilirubin 0.6 AST 23 ALT 18 Alkaline Phosphatase 91 Total Protein 6.0 L Albumin 3.4 L Patient Feedback: Patient satisfied with anesthetic care.
--- NOTE | 2023-04-14 14:43 | WPDNEUROSGPN ---
Progress Note: A&P Assessment and Plan (1) Lumbar disc herniation: Code(s): M51.26 - Other intervertebral disc displacement, lumbar region Status: Acute Assessment and Plan: Neurologically improving following lumbar decompression POD#1 L3-[address] Wild. Follow post void residuals after barrera catheter removal Continue to mobilize with PT/OT Anticipate possible need for rehab Pain control Appreciate hospitalists assistance with care Time Spent With Patient Time with patient: 15 - 25 minutes Subjective Date/time seen: 04/14/23 14:43 Interval history: Patient notes improvement in proximal left lower extremity pain More sensory symptoms at present No Headache when upright Barrera removed today Sat at bedside today Exam Narrative: Awake alert oriented x 3 Speech CF RHONDA EOMI Face= TML MAEW proximal LLE pain with movement but > 4/5 strength. Remains with chronic left foot drop Sensation altered in proximal left lower extremity otherwise intact Incision CDI - no drainage Objective Data Vital Signs Vital Signs: Vital Signs - 24 hr 04/13/23 15:02 04/13/23 20:00 04/13/23 20:13 Temperature 97.8 F 97.4 F L Pulse Rate 89 89 102 H Respiratory Rate 18 18 21 H Blood Pressure 171/77 H 155/86 H Pulse Oximetry 100 100 100 Oxygen Delivery Room Air 04/14/23 00:13 04/14/23 04:13 04/14/23 10:33 Temperature 98.3 F 98.7 F 97.6 F Pulse Rate 101 H 103 H 100 Respiratory Rate 18 18 18 Blood Pressure 160/84 H 128/67 125/59 L Pulse Oximetry 96 97 96 Oxygen Delivery Intake/Output Intake/Output: Intake & Output 04/11/23 04/12/23 04/13/23 04/14/23 23:59 23:59 23:59 23:59 Intake Total 1100 1620 1320 940 Output Total 1900 1200 1900 1000 Balance -800 420 -580 -60 Meds/Results Medications: Active Medications Generic Name Dose Route Start Last Admin Trade Name Freq PRN Reason Stop Dose Admin Acetaminophen 1,000 mg 04/13/23 09:15 Acetaminophen 500 Mg Tablet PO Q6H PRN Mild Pain (1-3) Al Hydrox/Mg Hydrox/Simethicone 20 ml 04/13/23 09:13 Mag Hydrox/Al Hydrox/Simeth 30 Ml Udc PO Q4H PRN Indigestion/Heartburn Alprazolam 0.5 mg 04/06/23 15:08 04/07/23 12:04 Alprazolam (*Crx) 0.5 Mg Tablet PO 0.5 mg ONCE PRN Administration Anxiety Bisacodyl 5 mg 04/06/23 09:18 04/12/23 05:39 Bisacodyl 5 Mg Tablet Ec PO 5 mg QAM PRN Administration Constipation Buspirone HCl 15 mg 04/05/23 21:50 04/14/23 08:25 Buspirone Hcl 5 Mg Tablet PO 15 mg Q12HR LORENA Administration Cyclobenzaprine HCl 10 mg 04/13/23 09:15 04/14/23 13:09 Cyclobenzaprine Hcl 10 Mg Tablet PO 10 mg TID PRN Administration Muscle Spasms Dexamethasone Sodium Phosphate 4 mg 04/14/23 10:40 04/14/23 10:49 Dexamethasone Sod Phos Inj 4 Mg/Ml Vial IV PUSH 4 mg Q6HR LORENA Administration Dextrose 12.5 gm 04/08/23 17:33 Dextrose 50% 25 Gm/50 Ml Syringe IV PUSH PRN PRN Hypoglycemia Protocol Docusate Sodium 100 mg 04/13/23 21:00 04/14/23 08:25 Docusate Sodium 100 Mg Capsule PO 100 mg Q12HR LORENA Administration Enoxaparin Sodium 40 mg 04/15/23 09:00 Enoxaparin 40 Mg/0.4 Ml Syringe SUB-Q DAILY LORENA Gabapentin 600 mg 04/05/23 21:45 04/13/23 20:34 Gabapentin 300 Mg Capsule PO 600 mg HS LORENA Administration Gabapentin 300 mg 04/06/23 09:00 04/14/23 08:25 Gabapentin 300 Mg Capsule PO 05/08/23 14:19 300 mg BID@0900,1500 LORENA Administration Gabapentin 200 mg 04/08/23 15:00 04/14/23 08:25 Gabapentin 100 Mg Capsule PO 200 mg BID@0900,1500 LORENA Administration Glucagon 1 mg 04/08/23 17:33 Glucagon For Inj 1 Mg Vial IM PRN PRN Hypoglycemia Protocol Glucose 15 gm 04/08/23 17:33 Glucose Oral Gel 15 Gm Of Glucse In 37.5 Gm Tube PO PRN PRN Hypoglycemia Protocol Hydromorphone HCl 0.5 mg 04/13/23 12:04 10/13/23 10:49 Hydromorphone Hcl Inj (*Cr
[2023-04-14 14:50] VITALS: BP 143/63; PULSE 100; RESP 18; TEMP 36.6; O2SAT 97
--- NOTE | 2023-04-14 14:53 | PCPTNOTE ---
PT reeval completed. GEOVANNY Astorga talked with pt and notified PT that pt was willing to participate in PT today.
[2023-04-14 17:57] LABS: Glucose Point of Care 227 mg/dl (65-105)
[2023-04-14 20:28] VITALS: BP 140/68; PULSE 102; RESP 16; TEMP 36.2; O2SAT 97
[2023-04-14] MEDS: oxyCODONE HCL (*CRX) 5 MG TAB IR PO (21:29)
[2023-04-14] MEDS: PARoxetine 20 MG TABLET PO (21:29)
[2023-04-14] MEDS: GABAPENTIN 300 MG CAPSULE 600 MG PO (21:30)
[2023-04-15 04:32] VITALS: BP 147/68; PULSE 96; RESP 16; TEMP 36.2; O2SAT 99
[2023-04-15] MEDS: DEXAMETHASONE SOD PHOS INJ 4 MG/ML VIAL IV PUSH ×4 (05:20→23:11)
[2023-04-15] MEDS: CYCLOBENZAPRINE HCL 10 MG TABLET PO (05:21)
[2023-04-15] MEDS: oxyCODONE HCL (*CRX) 5 MG TAB IR 10 MG PO ×3 (06:13→23:11)
[2023-04-15 06:19] LABS: Basophils Percent Auto 0.3 % (0.2-1.2); Hematocrit 35.9 % (37.0-47.0); Hemoglobin 11.6 g/dL (12.0-15.0); Immature Granulocyte Absolute 0.29 K/mm3 (0.00-0.031); Immature Granulocyte Percent A 2.7 % (0-0.5); Lymphocytes Absolute Auto 0.84 K/mm3 (0.9-3.2); Lymphocytes Percent Auto 7.8 % (18.3-44.2); Mean Corpuscular HGB Conc 32.3 g/dl (32-36); Mean Corpuscular Hemoglobin 30.8 pg (26-34); Mean Corpuscular Volume 95.2 fl (80-100); Mean Platelet Volume 9.4 fl (7.4-10.4); Monocytes Absolute Auto 0.6 K/mm3 (0.1-0.6); Monocytes Percent Auto 5.2 % (2.6-8.5); Neutrophils Absolute Auto 9.1 K/mm3 (1.3-6.7); Platelet Count Result 334 k/mm3 (150-375); Red Blood Count 3.77 M/mm3 (4.2-5.4); Red Cell Distribution Width 12.4 % (11.5-14.5); White Blood Count 10.8 K/mm3 (4.5-10.0)
[2023-04-15 06:28] LABS: Alanine Aminotransferase 17 U/L (6-35); Albumin Level 3.4 g/dL (3.5-5.1); Alkaline Phosphatase 76 U/L (38-126); Anion Gap 6 mmol/L (8-16); Aspartate Amino Transferase 22 U/L (14-36); Bilirubin,Total 0.7 mg/dL (0.2-1.3); Blood Urea Nitrogen 20 mg/dL (7-17); Calcium 8.6 mg/dL (8.4-10.2); Carbon Dioxide 25 mmol/L (22-30); Chloride 99 mmol/L (98-107); Estimated CRCL calculation 75 ml/min; Estimated Glomerular Filt Rate > 60; Glucose 271 mg/dL (65-110); Potassium 4.3 mmol/L (3.4-5.0); Sodium 130 mmol/L (137-145)
[2023-04-15] MEDS: busPIRone HCL 5 MG TABLET 15 MG PO ×2 (08:21→20:38)
[2023-04-15] MEDS: DOCUSATE SODIUM 100 MG CAPSULE PO (08:21)
[2023-04-15] MEDS: ENOXAPARIN 40 MG/0.4 ML SYRINGE SUB-Q (08:21)
[2023-04-15] MEDS: SODIUM CHLORIDE 500 MG TABLET PO ×2 (08:22→17:35)
[2023-04-15] MEDS: lisinopriL 10 MG TABLET PO (08:22)
[2023-04-15] MEDS: GABAPENTIN 300 MG CAPSULE PO ×2 (08:22→17:35)
[2023-04-15] MEDS: GABAPENTIN 100 MG CAPSULE 200 MG PO ×2 (08:22→17:35)
--- NOTE | 2023-04-15 09:53 | PM.IMPN ---
Progress Note: A&P Assessment and Plan (1) Intractable back pain: Code(s): M54.9 - Dorsalgia, unspecified Status: Acute Assessment and Plan: s/p L3-4 microdiskectomy with neurosurgery on 03/17 discharged from hospital on 03/20 to acute rehab. She was discharged from rehab on 04/01 and according to the ED note has not been out of bed since returning home. PT/OT Neurosurgery consult given recent surgery pain control with acetaminophen, oxycodone, Flexeril, and gabapentin Increased gabapentin from 300 mg PO BID to 500 mg PO BID with her night dose of 600 mg HS (total dose of 1600 mg). Total dose can increase to max of 3600 mg per day per pharmacy. Will slowly titrate up as I do not want to make her too drowsy during the day. activity as tolerated She completed 10 doses of IV dexamethasone 4 mg every 6 hours. MRI ordered for left hip and lumbar spine, report as followed MRI Left HIP Edematous change of the distal left gluteus medius muscle belly near the myotendinous junction of the trochanteric insertion region. Findings could reflect muscle strain or contusion. Correlate for inflammatory process. MRI Lumbar SPINE IMPRESSION: 1. Severe lumbar spondylosis with worsened large extrusion at L3-L4. 04/12: OR planned tomorrow morning. 04/13: Revision L3-4 laminectomy and microdiskectomy in OR this morning with Dr. Haylee Wild 04/14: Incisional pain, left leg pain continues as noted in HPI. IV steroids were started 04/15: improved pain after IV steroids. Improved function as well (2) Left hip pain: Code(s): M25.552 - Pain in left hip Status: Acute Assessment and Plan: See1 (3) Urinary retention: Code(s): R33.9 - Retention of urine, unspecified Status: Acute Assessment and Plan: Bladder scan of 800 ml Difficult Wilder placement. Return of 1000 ml of urine. Will attempt void trial when she is more ambulatory and on track for d/c. Wilder was extremely difficult to place. Clear, yellow urine present. Wilder remains until after surgery 04/14: Wilder catheter to be removed per Neurosurgery, patient reluctant but agreeable 04/15: patient able to since when she needs to urinate and able to empty bladder without retention or incontinence after Wilder was removed. (4) Steroid-induced hyperglycemia: Code(s): R73.9 - Hyperglycemia, unspecified; T38.0X5A - Adverse effect of glucocorticoids and synthetic analogues, initial encounter Status: Acute Assessment and Plan: ACHS fingerstick glucose with high dose corrective insulin supplementation Plan Feeding:Heart healthy Analgesia:acetaminophen, Flexeril, gabapentin, oxycodone and prn Diluadid Thromboembolic prophylaxis: Lovenox Ulcer prophylaxis: n/a Glycemic control: Corrective insulin restarted due to glucose 271 on CMP with AM labs, related to steroid use Bowel regimen: n/a Lines: PIV Antibiotics: n/a PT/OT recommending SNF, referrals sent per care coordination IV steroids restarted. Wilder catheter removed. Supplemental insulin restarted due to steroid induced hyperglycemia Time Spent With Patient Time with patient: 25 - 35 minutes Subjective Date/time seen: 04/15/23 09:53 Interval history: 77-year-old female with a past medical history of anxiety, degenerative disc disease, mild hypertension, obesity and recent microdiskectomy 03/28/2023 who presented back to the ER with intractable back pain and left groin pain.? She reports that she has had left footdrop since prior to her diskectomy.? The patient reports that after surgery she did have significant improvement in her pain down her right leg.? She was discharged to acute rehab.? However, since about 5 days into her acute rehab stay she has had worsening pain in the left leg in down the left lateral leg and into the groin.? The pain is worse with movement of the hip including flexion of the hip as well as standing.? The pain when she stands is
[2023-04-15 12:19] LABS: Glucose Point of Care 339 mg/dl (65-105)
[2023-04-15] MEDS: INSULIN ASPART (*BKC) 100 UNITS/ML SUB-Q ×3 (12:21→21:18)
[2023-04-15 14:35] VITALS: BP 131/66; PULSE 98; RESP 18; TEMP 36.6; O2SAT 100
[2023-04-15 17:17] LABS: Glucose Point of Care 241 mg/dl (65-105)
[2023-04-15] MEDS: PARoxetine 20 MG TABLET PO (20:37)
[2023-04-15] MEDS: GABAPENTIN 300 MG CAPSULE 600 MG PO (20:37)
[2023-04-15 21:07] VITALS: BP 132/82; PULSE 90; RESP 16; TEMP 36.6; O2SAT 100
[2023-04-15 21:30] LABS: Glucose Point of Care 252 mg/dl (65-105)
[2023-04-16 04:59] VITALS: BP 148/77; PULSE 95; RESP 18; TEMP 36.6; O2SAT 100
[2023-04-16] MEDS: DEXAMETHASONE SOD PHOS INJ 4 MG/ML VIAL IV PUSH (05:04)
[2023-04-16 05:39] LABS: Basophils Percent Auto 0.2 % (0.2-1.2); Hematocrit 33.3 % (37.0-47.0); Hemoglobin 11.1 g/dL (12.0-15.0); Immature Granulocyte Absolute 0.37 K/mm3 (0.00-0.031); Immature Granulocyte Percent A 2.9 % (0-0.5); Lymphocytes Absolute Auto 1.28 K/mm3 (0.9-3.2); Lymphocytes Percent Auto 10.2 % (18.3-44.2); Mean Corpuscular HGB Conc 33.3 g/dl (32-36); Mean Platelet Volume 9.3 fl (7.4-10.4); Monocytes Absolute Auto 0.8 K/mm3 (0.1-0.6); Monocytes Percent Auto 6.7 % (2.6-8.5); Platelet Count Result 356 k/mm3 (150-375); Red Blood Count 3.58 M/mm3 (4.2-5.4); White Blood Count 12.6 K/mm3 (4.5-10.0)
[2023-04-16 05:54] LABS: Alanine Aminotransferase 18 U/L (6-35); Albumin Level 3.3 g/dL (3.5-5.1); Alkaline Phosphatase 80 U/L (38-126); Anion Gap 6 mmol/L (8-16); Aspartate Amino Transferase 19 U/L (14-36); Bilirubin,Total 0.4 mg/dL (0.2-1.3); Blood Urea Nitrogen 22 mg/dL (7-17); Carbon Dioxide 25 mmol/L (22-30); Chloride 102 mmol/L (98-107); Estimated CRCL calculation 65 ml/min; Estimated Glomerular Filt Rate > 60; Glucose 237 mg/dL (65-110); Potassium 4.1 mmol/L (3.4-5.0); Sodium 133 mmol/L (137-145)
[2023-04-16 07:37] LABS: Glucose Point of Care 249 mg/dl (65-105)
[2023-04-16 08:00] VITALS: PULSE 95; RESP 18; O2SAT 100
[2023-04-16] MEDS: busPIRone HCL 5 MG TABLET 15 MG PO (08:55)
[2023-04-16] MEDS: lisinopriL 10 MG TABLET PO (08:55)
[2023-04-16] MEDS: ENOXAPARIN 40 MG/0.4 ML SYRINGE SUB-Q (08:56)
[2023-04-16] MEDS: GABAPENTIN 300 MG CAPSULE PO (08:56)
[2023-04-16] MEDS: DOCUSATE SODIUM 100 MG CAPSULE PO (08:56)
[2023-04-16] MEDS: GABAPENTIN 100 MG CAPSULE 200 MG PO (08:56)
[2023-04-16] MEDS: SODIUM CHLORIDE 500 MG TABLET PO (08:56)
[2023-04-16] MEDS: INSULIN ASPART (*BKC) 100 UNITS/ML SUB-Q ×2 (08:57→12:25)
--- NOTE | 2023-04-16 10:19 | PM.IMPN ---
Progress Note: A&P Assessment and Plan (1) Intractable back pain: Code(s): M54.9 - Dorsalgia, unspecified Status: Acute Assessment and Plan: s/p L3-4 microdiskectomy with neurosurgery on 03/17 discharged from hospital on 03/20 to acute rehab. She was discharged from rehab on 04/01 and according to the ED note has not been out of bed since returning home. PT/OT Neurosurgery consult given recent surgery pain control with acetaminophen, oxycodone, Flexeril, and gabapentin Increased gabapentin from 300 mg PO BID to 500 mg PO BID with her night dose of 600 mg HS (total dose of 1600 mg). Total dose can increase to max of 3600 mg per day per pharmacy. Will slowly titrate up as I do not want to make her too drowsy during the day. activity as tolerated She completed 10 doses of IV dexamethasone 4 mg every 6 hours. MRI ordered for left hip and lumbar spine, report as followed MRI Left HIP Edematous change of the distal left gluteus medius muscle belly near the myotendinous junction of the trochanteric insertion region. Findings could reflect muscle strain or contusion. Correlate for inflammatory process. MRI Lumbar SPINE IMPRESSION: 1. Severe lumbar spondylosis with worsened large extrusion at L3-L4. 04/12: OR planned tomorrow morning. 04/13: Revision L3-4 laminectomy and microdiskectomy in OR this morning with Dr. aHylee Wild 04/14: Incisional pain, left leg pain continues as noted in HPI. IV steroids were started 04/15: improved pain after IV steroids. Improved function as well 04/16: Decrease IV steroids today. (2) Left hip pain: Code(s): M25.552 - Pain in left hip Status: Acute Assessment and Plan: See1 (3) Urinary retention: Code(s): R33.9 - Retention of urine, unspecified Status: Acute Assessment and Plan: Bladder scan of 800 ml Difficult Wilder placement. Return of 1000 ml of urine. Will attempt void trial when she is more ambulatory and on track for d/c. Wilder was extremely difficult to place. Clear, yellow urine present. Wilder remains until after surgery 04/14: Wilder catheter to be removed per Neurosurgery, patient reluctant but agreeable 04/15: patient able to since when she needs to urinate and able to empty bladder without retention or incontinence after Wilder was removed. 04/16: No ongoing concern, resolved (4) Steroid-induced hyperglycemia: Code(s): R73.9 - Hyperglycemia, unspecified; T38.0X5A - Adverse effect of glucocorticoids and synthetic analogues, initial encounter Status: Acute Assessment and Plan: ACHS fingerstick glucose with high dose corrective insulin supplementation 04/16: decrease steroids today Plan Feeding:Heart healthy Analgesia:acetaminophen, Flexeril, gabapentin, oxycodone and prn Diluadid Thromboembolic prophylaxis: Lovenox Ulcer prophylaxis: n/a Glycemic control: Corrective insulin restarted due to glucose 271 on CMP with AM labs, related to steroid use Bowel regimen: n/a Lines: PIV Antibiotics: n/a Discharge to SNF today or tomorrow Stop steroids on discharge Time Spent With Patient Time with patient: 15 - 25 minutes Subjective Date/time seen: 04/16/23 10:19 Interval history: 77-year-old female with a past medical history of anxiety, degenerative disc disease, mild hypertension, obesity and recent microdiskectomy 03/28/2023 who presented back to the ER with intractable back pain and left groin pain.? She reports that she has had left footdrop since prior to her diskectomy.? The patient reports that after surgery she did have significant improvement in her pain down her right leg.? She was discharged to acute rehab.? However, since about 5 days into her acute rehab stay she has had worsening pain in the left leg in down the left lateral leg and into the groin.? The pain is worse with movement of the hip including flexion of the hip as well as standing.? The pain when she stands is unbeara
[2023-04-16 12:04] LABS: Glucose Point of Care 230 mg/dl (65-105)
[2023-04-16 13:45] VITALS: BP 122/72; PULSE 108; RESP 18; TEMP 36.9; O2SAT 99
--- NOTE | 2023-04-16 14:24 | PM.DS ---
DS: Admitting Diagnosis Discharge Date 04/16/2023 Admitting Diagnosis intractable back pain, left hip pain, urinary retention DS: Discharge Diagnosis Discharge Diagnosis (1) Intractable back pain: Code(s): M54.9 - Dorsalgia, unspecified Status: Acute (2) Left hip pain: Code(s): M25.552 - Pain in left hip Status: Acute (3) Urinary retention: Code(s): R33.9 - Retention of urine, unspecified Status: Acute (4) Steroid-induced hyperglycemia: Code(s): R73.9 - Hyperglycemia, unspecified; T38.0X5A - Adverse effect of glucocorticoids and synthetic analogues, initial encounter Status: Acute DS: Summary Hospital Course Reason for hospitalization: Urinary retention and left leg dysfunction Hospital Course: 77-year-old female with a past medical history of anxiety, degenerative disc disease, mild hypertension, obesity and recent microdiskectomy 03/28/2023 who presented back to the ER with intractable back pain and left groin pain.? She reports that she has had left footdrop since prior to her diskectomy.? The patient reports that after surgery she did have significant improvement in her pain down her right leg.? She was discharged to acute rehab.? However, since about 5 days into her acute rehab stay she has had worsening pain in the left leg in down the left lateral leg and into the groin.? The pain is worse with movement of the hip including flexion of the hip as well as standing.? The pain when she stands is unbearable.? She was discharged from rehab 4 days ago.? She reports that her pain since discharge has been unbearable.? She has been on Neurontin, muscle relaxers and opiates.? However she states that she actually was not taking muscle relaxers at home as she did not feel that they were helping all that much.? She has been unable get out of bed due to pain and has actually been incontinent because she stated she hurts too much to get out of bed.? She was unable to lift her leg after sleeping on her right side due to pain.? She has not been having any constipation in fact she reports that it she has had more loose stools due to what she feels is too much use of stool softeners with Colace and MiraLax.? She quit taking the stool softeners 3 days ago. Interval history: 04/06-I spoke with Dr. Medina with Neurosurgery who is recommending further imaging of the patient's left hip as that seems to be with most of her pain is located.? She did say it would not be unreasonable to re-scanned her lumbar spine and so added that as well.? Patient is having urinary retention.? Bladder scan was 800 mL and she is unable to empty.? A Wilder catheter was difficultly placed with return of 915 mils of urine.? The patient states she could tell her bladder was full but she was unable to empty. This may be because she is unable to get out of bed to the commode due to pain. Her pain is to her left groin and tracking and her left hip and then extends down through her left flores.? She reports that the pain in her left groin is generalized per her terms and she has shooting pain through her left flores.? MRI has been ordered for both hip and lumbar spine. 04/07-NAEON.? Patient is seen this afternoon after her MRI has been completed.? She says that she feels a little bit better than yesterday.? She continues to have pain to her left hip and left leg.? She tried working with therapy today and became nauseous with some dizziness.? She reported her nurse that her pain was consistently 8/10.? I increased her pain medication and hopes of providing some relief.? She continues with a Wilder catheter in place.? I would like to see her moving around more consistently with therapy you before a void trial given that her catheter was so difficult to place.? At this time PT and OT are recommending snf so care coordination has sent referrals to [facility].? While while she would obviously prefer to go home she understands that mobility daigle it is sa
[2023-04-16] MEDS: oxyCODONE HCL (*CRX) 5 MG TAB IR PO (15:40)
== END 2023-04-16 16:16 | DRG 520 ==
LOC: ANHED 16:05 → ANH3MED 16:20
PROVIDERS: Internal Medicine; Neurological Surgery; Nurse Practitioner Acute Care; Admitting Provider Chiropractor; Emergency Provider Student in an Organized Health Care Education/Training Program; PCP Family Medicine; Visit Provider Nurse Practitioner
PROC: 0SB20ZZ Excision of Lumbar Vertebral Disc, Open Approach (ICD-10-PCS; CPT 63030; principal; 2023-04-13 07:30)
DX: M51.26 Other intervertebral disc displacement, lumbar region (principal); R33.9 Retention of urine, unspecified; R73.9 Hyperglycemia, unspecified; T38.0X5A Adverse effect of glucocorticoids and synthetic analogues, initial encounter; F41.9 Anxiety disorder, unspecified; M16.12 Unilateral primary osteoarthritis, left hip; I10 Essential (primary) hypertension; E78.2 Mixed hyperlipidemia; R73.03 Prediabetes; E66.9 Obesity, unspecified; Z68.29 Body mass index [BMI] 29.0-29.9, adult; Z98.890 Other specified postprocedural states; Z90.49 Acquired absence of other specified parts of digestive tract
CPT/HCPCS: 36415; 72148; 73502; 73721; 80053; 81003; 82948; 83735; 84100; 85025; 85027; 85652; 86140; 96374; 96375; 97110; 97112; 97116; 97161; 97166; 97530; 97535; 99199; 99285; A9270; G0378; J0690; J1100; J1170; J1650; J1815; J1885; J2270; J2371; J2405; J2704; J2765; J3010; J7120

== ENCOUNTER 2023-04-21 12:20 | Inpatient (IN) | payer MEDICARE, SELFPAY ==
[2023-04-21] VITALS (39 sets, daily range): BP systolic 116–180; BP diastolic 52–89; PULSE 94–111; RESP 13–25; TEMP 37–37.5; O2SAT 95–100; BMI 32.2
--- NOTE | ~2023-04-21 | MR_ITS ---
EXAMINATION: MR lumbar spine wo/w con DATE: 04/23/2023 07:39 INDICATION: R/o out surgical infection . TECHNIQUE: Magnetic resonance imaging (MRI) of the lumbar spine was performed without and with 16 cc MultiHance intravenous contrast. Sequences included sagittal T2-weighted frFSE, sagittal T2-weighted FS frFSE, sagittal T1-weighted FSE, and axial T2-weighted and T1 weighted; post contrast imaging incl uded sagittal and axial T1 FSE FS sequences. COMPARISON: CT L-spine 04/21/2023; MR lumbar spine 04/07/2023 FINDINGS: 5.5 x 2.4 x 6.6 cm fluid and gas collection at the level of L1-2 to L3-4 with surrounding e nhancement. This collection extends into the interspace at L3-4 and abuts the thecal sac. L3-4 boby ctomy change. 1.1 x 1.9 x 3.1 cm rim-enhancing collection with intermediate T1 and T2 signal and gas extending from the L3-4 disc space into the canal causing severe canal stenosis and displacement of t he traversing nerve roots. Multilevel degenerative disc and facet changes. A level by level analysis can be performed if requested. IMPRESSION: 5.5 x 2.4 x 6.6 cm fluid and gas collection in the posterior lumbar soft tissues extending into the i nterspinous space of L3-4, with surrounding enhancement. This may reflect abscess versus resolving dumas rgical change. Enough fluid is likely present to unable sampling for analysis. 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 This may represent residual extrusion or residual extrusion sac. Developing abscess cannot be excluded. Reviewed, dictated and finalized at location K. IMPRESSION: 5.5 x 2.4 x 6.6 cm fluid and gas collection in the posterior lumbar soft tissue s extending into the interspinous space of L3-4, with surrounding enhancement. This may reflect abscess versus resolving surgical change. Enough fluid is like ly present to unable sampling for analysis. 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 This may represe nt residual extrusion or residual extrusion sac. Developing abscess cannot be e xcluded.
--- NOTE | ~2023-04-21 | CT_ITS ---
EXAMINATION: CT lumbar spine w con DATE: 04/21/2023 17:06 INDICATION: Unknown infection source, recent laminectomy and microdiscectomy TECHNIQUE: Computed tomography (CT) of the lumbar spine was performed without intravenous contrast. T he dose-length product (DLP) was 1282.88 mGy-cm. Iterative reconstruction was used. COMPARISON: MRI, 04/07/2023 FINDINGS: There are laminectomy changes at L3-4. There is an approximately 5.3 x 1.5 x 2.4 cm fluid c ollection in the posterior subcutaneous tissues at the operative site. There are tiny foci of gas in the fluid collection as well as in the central spinal canal (probably epidural) and L3-4 disc space. There appears to be mild peripheral enhancement surrounding the fluid collection. The fluid collectio n extends at least to the posterior margin of the central spinal canal. There are 3 mm of retrolisthe sis of L3 on L4. There is severe loss of intervertebral disc space height at L3-4, L4-5, and L5-S1. T he vertebral body heights are maintained. There is no fracture. IMPRESSION: 1. Posterior fluid collection as detailed above which could reflect abscess versus resolving surgical change. 2. Severe lumbar spondylosis. Reviewed, dictated and finalized at location F. IMPRESSION: 1. Posterior fluid collection as detailed above which could reflect abscess brittany jamel resolving surgical change. 2. Severe lumbar spondylosis.
--- NOTE | ~2023-04-21 | CT_ITS ---
EXAMINATION: CT brain wo con INDICATION: New onset confusion COMPARISON: 03/15/2023 TECHNIQUE: Standard unenhanced head CT. The dose-length product (DLP) was 605.33 mGy-cm. The mA was a djusted according to patient size. Iterative reconstruction technique was employed. FINDINGS: No acute intraparenchymal hemorrhage. No evidence of mass lesion. No evidence of acute infa rction. There is mild periventricular and subcortical hypodensity probably related to small vessel is chemic disease. There is mild prominence of the sulci and ventricles related to cerebral atrophy. Int racranial calcified cerebral atherosclerosis is noted. No extra-axial collections. No mass effect or midline shift. The orbits and soft tissues are unremarkable. The visualized sinuses and mastoid air c ells are well aerated. IMPRESSION: 1. No acute intracranial abnormality. 2. Age related findings. Reviewed, dictated and finalized at location F.
[2023-04-21 16:20] LABS: Alanine Aminotransferase 24 U/L (6-35); Albumin Level 3.3 g/dL (3.5-5.1); Alkaline Phosphatase 84 U/L (38-126); Anion Gap 6 mmol/L (8-16); Aspartate Amino Transferase 24 U/L (14-36); Bilirubin,Total 0.6 mg/dL (0.2-1.3); Blood Urea Nitrogen 18 mg/dL (7-17); Calcium 8.6 mg/dL (8.4-10.2); Carbon Dioxide 25 mmol/L (22-30); Chloride 100 mmol/L (98-107); Estimated CRCL calculation 51 ml/min; Estimated Glomerular Filt Rate > 60; Glucose 175 mg/dL (65-110); Potassium 3.3 mmol/L (3.4-5.0); Sodium 131 mmol/L (137-145)
[2023-04-21 16:29] LABS: Appearance Urine Turbid (Clear); Bacteria Urine 4+ /hpf; Bilirubin Urine Negative (Negative); Blood Urine 3+ (Negative); Color Urine Yellow (Yellow); Glucose Urine UA Negative (Negative); Ketones Urine Negative (Negative); Leukocyte Esterase Ur 3+ LEU/UL (Negative); Need Manual Microscopic Reviewed; Nitrate Urine Positive (Negative); Non Pathogenic Casts 0-2; Protein Urine 2+ mg/dL (Negative); Specific Grav Ur 1.018 (1.001-1.035); Squamous Epithelial Cell Urine None seen /hpf (Few); WBC Urine >100 /hpf; pH Urine 5.5 (5.0-9.0)
[2023-04-21 16:30] LABS: Add Urine Microscopic? YES
--- NOTE | 2023-04-21 16:39 | ED.BACK ---
HPI - Back Pain/Injury General Chief Complaint: Back Pain/Injury Stated Complaint: post op comp, AMS Time Seen by Provider: 04/21/23 15:28 History of Present Illness HPI Narrative: 77-year-old female present to the emergency department for evaluation of worsening mental status. Patient had a recent L3-L4 laminectomy microdiscectomy and has been at [facility] getting rehabilitation. When the patient's daughter went to go see her today patient was more confused. Wound has been having increased serosanguineous drainage but no purulence. Patient does complain of headache and back pain. Related Data Allergies Allergy/AdvReac Type Severity Reaction Status Date / Time No Known Allergies Allergy Mild Verified 04/21/23 12:39 Review of Systems Review of Systems: All systems reviewed & are unremarkable except as noted in HPI and below PMFSH Past Medical History Medical History (Updated 04/21/23 @ 19:45 by Willie Mariano MD) Anxiety Essential hypertension Mixed hyperlipidemia Obesity (BMI 30.0-34.9) Papilloma of breast (~2013) Prediabetes Surgical History Surgical History (Updated 04/08/23 @ 15:33 by Haylee Wild MD) History of section Hx of cholecystectomy (~2005) Family History Family History Mother Carcinoma of colon Father Family history of coronary artery disease Other Family history of cardiovascular disease Social History Social History (Updated 04/06/23 @ 09:00 by Gauri Johnson DO) Social History: She lives with her of 55 years. Smoking status: Never smoker Second hand tobacco smoke exposure: No Alcohol intake: former Substance use: never Lack of Transportation: No Lack of Food: Never True Current Housing: I Have Housing Concerned About Future Housing: No Difficulty Paying Gas/Electric Bills: No Difficulty Paying for Meds: No Currently Unemployed: No Education: Don't Know Difficulty w/ Childcare or Family Care: No Spiritual care concerns: No Exam Narrative: APPEARANCE: Confused HEAD: normocephalic, atraumatic. EYES: PERRLA/EOMI, conjunctivae clear. NOSE: Normal no drainage EARS:TMS clear with good light reflex. THROAT: Pharynx clear, no exudate. NECK: Supple. No adenopathy, no masses. RESPIRATORY: Airway patent, respirations nonlabored. Clear to auscultation bilaterally, no rales, rhonchi, wheezing. CARDIOVASCULAR: Regular rate and rhythm without murmurs rubs or gallops. ABDOMINAL: Soft, nontender, nondistended, normal bowel sounds MUSCULOSKELETAL: Moves all extremities. Strength/ROM intact, No edema, No calf tenderness. NEURO: Alert. Cranial nerves II through XII intact. Grossly intact SKIN: Edema around the laminectomy surgical incision no purulence, some serosanguineous drainage Course Course Emergency Course: 77-year-old female presented the emergency department for evaluation of altered mental status. Patient is afebrile but does have a significant urinary tract infection with positive nitrates positive leukoesterase and greater than 100 red blood cells With +4 bacteria. Blood cultures and urine cultures are pending. Patient was started on IV Rocephin. CT scan of lumbar spine with contrast was ordered and does show a fluid collection with possible abscess. I discussed the case with neurosurgery and Dr. Mackay will see the patient as consult. No additional antibiotics were requested. Blood and urine cultures are pending. Patient and family are updated on the results of the work-up and treatment plan and plan for admission. All question concerns were addressed and patient was resting comfortably at time of admission. Case was discussed with the hospitalist and they are comfortable with the plan for admission to Vital Signs Vital signs: Vital Signs Temperature 99.3 F 04/21/23 12:20 Pulse Rate 111 H 04/21/23 12:20 Respiratory Rate 16 04/21/23 12:20
--- NOTE | 2023-04-21 16:41 | PC.NURSE ---
pt taken to CT at this time
[2023-04-21 16:50] LABS: Influenza A QL RT-PCR Negative (Negative); Influenza B QL RT-PCR Negative (Negative); RSV RNA, RT-PCR Negative (Negative); SARS-CoV-2 RNA PCR Negative (Negative)
[2023-04-21] MEDS: SODIUM CHLORIDE 0.9% IV 1,000 ML 999 ML IV CONT (17:59)
[2023-04-21 18:03] LABS: Basophils Percent Auto 0.4 % (0.2-1.2); Eosinophils Absolute Auto 0.2 K/mm3 (0-0.3); Eosinophils Percent Auto 2.2 % (0-4.4); Hematocrit 33.2 % (37.0-47.0); Hemoglobin 10.7 g/dL (12.0-15.0); Immature Granulocyte Absolute 0.08 K/mm3 (0.00-0.031); Immature Granulocyte Percent A 0.8 % (0-0.5); Lymphocytes Absolute Auto 1.42 K/mm3 (0.9-3.2); Lymphocytes Percent Auto 13.8 % (18.3-44.2); Mean Corpuscular HGB Conc 32.2 g/dl (32-36); Mean Corpuscular Hemoglobin 30.3 pg (26-34); Mean Corpuscular Volume 94.1 fl (80-100); Mean Platelet Volume 9.2 fl (7.4-10.4); Monocytes Absolute Auto 0.8 K/mm3 (0.1-0.6); Monocytes Percent Auto 7.7 % (2.6-8.5); Neutrophils Absolute Auto 7.8 K/mm3 (1.3-6.7); Neutrophils Percent Auto 75.1 % (45.5-73.1); Platelet Count Result 396 k/mm3 (150-375); Red Blood Count 3.53 M/mm3 (4.2-5.4); Red Cell Distribution Width 12.5 % (11.5-14.5); White Blood Count 10.3 K/mm3 (4.5-10.0)
[2023-04-21 18:20] LABS: INR 1.1; Prothrombin Time 14.4 Seconds (11.1-14.7)
[2023-04-21 18:21] LABS: Partial Thromboplastin Time 29.4 SECONDS (22.3-36.8)
[2023-04-21] MEDS: fentaNYL CITRATE INJ (*CRX) 100 MCG/2 ML VIAL 50 MCG IV PUSH (18:23)
[2023-04-21 18:26] LABS: Lactic Acid Reflex 1.1 mmol/L (0.7-2.0)
--- NOTE | 2023-04-21 21:36 | ADMGEN ---
This patient, Izabela Crook, was admitted to Medical Room 247-. Patient/family oriented to hospital policies and general routines including ID bracelet, bed and alarms, visiting hours, pain management, procedures, bathroom and other care routines, personal items, smoking policy, room service/diet, and visiting hours. Information on how to activate the Rapid Response Team has been discussed. Patient/Family are encouraged to report perceived risks to care and to ask questions if they do not understand what they are told or what they should do.
--- NOTE | 2023-04-21 22:08 | PC.NURSE ---
patient arrived to room 247 from ER by stretcher. Upon arrival patient moaning but lethargic. VSS temp 99.5 orally. patient complaining of hip and left leg pain. This nurse and staff log rolled patient. lower back positive with a saturated ABD pad with both purulent and serosanguineous drainage. Area yan and swollen. New dressing applied. Patient resting at this time. care continued
[2023-04-21] MEDS: HYDROmorphone HCL INJ (*CRX) 1 MG/ML SYR IV PUSH (22:52)
--- NOTE | 2023-04-21 23:29 | PM.IMHP ---
H&P: HPI History of Present Illness Date/Time: 04/21/23 23:29 Chief Complaint: AMS Narrative: This is a 77-year-old female with past medical history significant for anxiety essential hypertension mixed hyperlipidemia patient is status post laminectomy of the lumbar spine comes in due to pain incisional surgical wound with purulent discharge. Pain is at the back patient with excruciating pain 10/10 intensity unable to give much history. Initially evaluated emergency room for altered mental status. Preliminary workup was significant for CT of the lumbar spine with possible abscess. A urinalysis was significant for numerous WBCs present as well. Patient has been admitted for further evaluation management and treatment. EXAMINATION: CT brain wo con ? INDICATION: New onset confusion ? COMPARISON: 03/15/2023 TECHNIQUE: Standard unenhanced head CT. The dose-length product (DLP) was 605.33 mGy-cm. The mA was adjusted according to patient size. Iterative reconstruction technique was employed. ? FINDINGS: No acute intraparenchymal hemorrhage. No evidence of mass lesion. No evidence of acute infarction. There is mild periventricular and subcortical hypodensity probably related to small vessel ischemic disease. There is mild prominence of the sulci and ventricles related to cerebral atrophy. Intracranial calcified cerebral atherosclerosis is noted. No extra-axial collections. No mass effect or midline shift. The orbits and soft tissues are unremarkable. The visualized sinuses and mastoid air cells are well aerated. IMPRESSION: 1. No acute intracranial abnormality. 2. Age related findings. EXAMINATION: CT lumbar spine w con DATE: 04/21/2023 17:06 INDICATION: Unknown infection source, recent laminectomy and microdiscectomy TECHNIQUE: Computed tomography (CT) of the lumbar spine was performed without intravenous contrast. The dose-length product (DLP) was 1282.88 mGy-cm. Iterative reconstruction was used. COMPARISON: MRI, 04/07/2023 FINDINGS: There are laminectomy changes at L3-4. There is an approximately 5.3 x 1.5 x 2.4 cm fluid collection in the posterior subcutaneous tissues at the operative site. There are tiny foci of gas in the fluid collection as well as in the central spinal canal (probably epidural) and L3-4 disc space. There appears to be mild peripheral enhancement surrounding the fluid collection. The fluid collection extends at least to the posterior margin of the central spinal canal. There are 3 mm of retrolisthesis of L3 on L4. There is severe loss of intervertebral disc space height at L3-4, L4-5, and L5-S1. The vertebral body heights are maintained. There is no fracture. IMPRESSION: 1. Posterior fluid collection as detailed above which could reflect abscess versus resolving surgical change. 2. Severe lumbar spondylosis. Review of Systems Review of Systems: BACK PAIN ROS unobtainable: Yes unobtainable due to mental status (Obtundation, lethargy) [facility] Past Medical History Medical History (Updated 04/22/23 @ 05:25 by William Lee MD) Anxiety Essential hypertension Mixed hyperlipidemia Obesity (BMI 30.0-34.9) Papilloma of breast (~2013) Prediabetes Surgical History Surgical History (Updated 04/08/23 @ 15:33 by Haylee Wild MD) History of section Hx of cholecystectomy (~2005) Family History Family History Mother Carcinoma of colon Father Family history of coronary artery disease Other Family history of cardiovascular disease Social History Social History (Updated 04/06/23 @ 09:00 by Gauri Johnson DO) Social History: She lives with her of 55 years. Smoking status: Never smoker Second hand tobacco smoke exposure: No Alcohol intake: never Substance use: never Substance use type: does not use Lack of Transportation: No Lack of Food: Never True Current Housing: I Have Housing Concerned About
[2023-04-22] MEDS: CEFEPIME 1 GM/NS 50 ML 1 GM/50 ML BAG IVPB ×2 (01:30→12:58)
[2023-04-22] MEDS: PARoxetine 20 MG TABLET PO ×2 (02:17→20:28)
[2023-04-22] MEDS: CYCLOBENZAPRINE HCL 10 MG TABLET PO ×2 (02:39→17:03)
[2023-04-22 05:34] VITALS: BP 150/68; PULSE 91; RESP 18; TEMP 37.2; O2SAT 95
--- NOTE | 2023-04-22 07:25 | P.PNIM_ITS ---
Progress Note: A&P Assessment and Plan (1) Infected surgical wound: Code(s): T81.49XA - Infection following a procedure, other surgical site, initial encounter Status: Acute Assessment and Plan: 04/21/23: * Patient started on vancomycin and cefepime * Await cultures * Neurosurgery consult * CT of lumbar spine reviewed 04/22/23: * (2) Status post lumbar microdiscectomy: Code(s): Z98.890 - Other specified postprocedural states Status: Acute Assessment and Plan: 04/21/23: * CT shows possible abscess formation 04/22/23: * (3) Urinary tract infection: Code(s): N39.0 - Urinary tract infection, site not specified Status: Acute Assessment and Plan: 04/21/23: * On broad-spectrum antibiotics * Await cultures 04/22/23: * (4) Intractable back pain: Code(s): M54.9 - Dorsalgia, unspecified Status: Acute Assessment and Plan: 04/21/23: * Pain management 04/22/23: * (5) AMS (altered mental status): Code(s): R41.82 - Altered mental status, unspecified Status: Acute Assessment and Plan: 04/21/23: * Likely secondary to all of the above * Continue to monitor 04/22/23: * (6) Generalized anxiety disorder: Code(s): F41.1 - Generalized anxiety disorder Status: Acute Assessment and Plan: 04/21/23: * Resume home meds as needed 04/22/23: * Time Spent With Patient Time with patient: Greater than 35 minutes Subjective Date/time seen: 04/22/23 07:25 Review of Systems Review of Systems: BACK PAIN ROS unobtainable: Yes unobtainable due to mental status (Obtundation, lethargy) Exam Narrative: General: Confused HEAD: normocephalic, atraumatic. EYES: PERRLA/EOMI, conjunctivae clear. ENT: NECK: Supple. No adenopathy, RESPIRATORY: Airway patent, respirations nonlabored. Clear to auscultation bilaterally, no rales, rhonchi, wheezing. CARDIOVASCULAR: Regular rate and rhythm without murmurs rubs or gallops. ABDOMINAL: Soft, nontender, nondistended, normal bowel sounds MUSCULOSKELETAL: Moves all extremities. Strength/ROM intact, No edema, No calf tenderness. NEURO: Alert. Cranial nerves II through XII intact.? Grossly intact SKIN: Edema around the laminectomy surgical incision no purulence, some serosanguineous drainage Objective Data Vital Signs Vital Signs: Vital Signs - 24 hr 04/21/23 12:20 04/21/23 13:42 04/21/23 15:37 Temperature 99.3 F 98.6 F Pulse Rate 111 H 108 H 101 H Respiratory Rate 16 14 17 Blood Pressure 161/88 H 145/65 H 131/55 L Pulse Oximetry 99 99 98 Oxygen Delivery Room Air 04/21/23 18:03 04/21/23 13:42 04/21/23 13:43 Temperature Pulse Rate 100 109 H 109 H Respiratory Rate 18 15 14 Blood Pressure 174/70 H 151/67 H Pulse Oximetry 100 98 Oxygen Delivery 04/21/23 13:44 04/21/23 13:45 04/21/23 13:46 Temperature Pulse Rate 108 H 108 H 110 H Respiratory Rate 13 14 14 Blood Pressure 145/65 H 141/76 H Pulse Oximetry 99 99 99 Oxygen Delivery 04/21/23 14:00 04/21/23 14:01 04/21/23 14:16 Temperature Pulse Rate 1
--- NOTE | 2023-04-22 07:25 | PM.IMPN ---
Progress Note: A&P Assessment and Plan (1) Infected surgical wound: Code(s): T81.49XA - Infection following a procedure, other surgical site, initial encounter Status: Acute Assessment and Plan: 04/21/23: Patient started on vancomycin and cefepime Await cultures Neurosurgery consult CT of lumbar spine reviewed 04/22/23: (2) Status post lumbar microdiscectomy: Code(s): Z98.890 - Other specified postprocedural states Status: Acute Assessment and Plan: 04/21/23: CT shows possible abscess formation 04/22/23: (3) Urinary tract infection: Code(s): N39.0 - Urinary tract infection, site not specified Status: Acute Assessment and Plan: 04/21/23: On broad-spectrum antibiotics Await cultures 04/22/23: (4) Intractable back pain: Code(s): M54.9 - Dorsalgia, unspecified Status: Acute Assessment and Plan: 04/21/23: Pain management 04/22/23: (5) AMS (altered mental status): Code(s): R41.82 - Altered mental status, unspecified Status: Acute Assessment and Plan: 04/21/23: Likely secondary to all of the above Continue to monitor 04/22/23: (6) Generalized anxiety disorder: Code(s): F41.1 - Generalized anxiety disorder Status: Acute Assessment and Plan: 04/21/23: Resume home meds as needed 04/22/23: Time Spent With Patient Time with patient: Greater than 35 minutes Subjective Date/time seen: 04/22/23 07:25 Review of Systems Review of Systems: BACK PAIN ROS unobtainable: Yes unobtainable due to mental status (Obtundation, lethargy) Exam Narrative: General: Confused HEAD: normocephalic, atraumatic. EYES: PERRLA/EOMI, conjunctivae clear. ENT: NECK: Supple. No adenopathy, RESPIRATORY: Airway patent, respirations nonlabored. Clear to auscultation bilaterally, no rales, rhonchi, wheezing. CARDIOVASCULAR: Regular rate and rhythm without murmurs rubs or gallops. ABDOMINAL: Soft, nontender, nondistended, normal bowel sounds MUSCULOSKELETAL: Moves all extremities. Strength/ROM intact, No edema, No calf tenderness. NEURO: Alert. Cranial nerves II through XII intact.? Grossly intact SKIN: Edema around the laminectomy surgical incision no purulence, some serosanguineous drainage Objective Data Vital Signs Vital Signs: Vital Signs - 24 hr 04/21/23 12:20 04/21/23 13:42 04/21/23 15:37 Temperature 99.3 F 98.6 F Pulse Rate 111 H 108 H 101 H Respiratory Rate 16 14 17 Blood Pressure 161/88 H 145/65 H 131/55 L Pulse Oximetry 99 99 98 Oxygen Delivery Room Air 04/21/23 18:03 04/21/23 13:42 04/21/23 13:43 Temperature Pulse Rate 100 109 H 109 H Respiratory Rate 18 15 14 Blood Pressure 174/70 H 151/67 H Pulse Oximetry 100 98 Oxygen Delivery 04/21/23 13:44 04/21/23 13:45 04/21/23 13:46 Temperature Pulse Rate 108 H 108 H 110 H Respiratory Rate 13 14 14 Blood Pressure 145/65 H 141/76 H Pulse Oximetry 99 99 99 Oxygen Delivery 04/21/23 14:00 04/21/23 14:01 04/21/23 14:16 Temperature Pulse Rate 110 H 109 H 110 H Respiratory Rate 15 20 20 Blood Pressure 122/64 127/60 Pulse Oximetry 95 99 98 Oxygen Delivery 04/21/23 14:46 04/21/23 14:58 04/21/23 15:00 Temperature Pulse Rate Respiratory Rate Blood Pressure 127/66 Pulse Oximetry 97 96 Oxygen Delivery 04/21/23 15:01 04/21/23 15:16 04/21/23 15:38 Temperature Pulse Rate 100 Respiratory Rate 17 Blood Pressure 116/89 120/66 131/55 L Pulse Oximetry 95 97 Oxygen Delivery 04/21/23 15:46 04/21/23 16:00 04/21/23 16:15 Temperature Pulse Rate 102 H 99 98 Respiratory Rate 17 13 20 Blood Pressure 141/65 H Pulse Oximetry 97 Oxygen Delivery 04/21/23 16:30 04/21/23 17:54 04/21/23 18:01 Temperature Pulse Rate 99 100 102 H Respiratory Rate 14 18 15 Blood Pressure 164/67 H 174/70 H Pulse Oximetry 100 100 Oxygen Delivery
[2023-04-22 08:10] LABS: Basophils Percent Auto 0.3 % (0.2-1.2); Eosinophils Absolute Auto 0.1 K/mm3 (0-0.3); Eosinophils Percent Auto 1.2 % (0-4.4); Hematocrit 31.4 % (37.0-47.0); Immature Granulocyte Absolute 0.09 K/mm3 (0.00-0.031); Immature Granulocyte Percent A 0.8 % (0-0.5); Immature Platelet Fraction Pct 2.4 % (0.9-11.2); Lymphocytes Absolute Auto 1.72 K/mm3 (0.9-3.2); Lymphocytes Percent Auto 15.2 % (18.3-44.2); Mean Corpuscular HGB Conc 31.8 g/dl (32-36); Mean Corpuscular Hemoglobin 29.8 pg (26-34); Mean Corpuscular Volume 93.5 fl (80-100); Mean Platelet Volume 10.1 fl (7.4-10.4); Monocytes Percent Auto 8.4 % (2.6-8.5); Neutrophils Absolute Auto 8.4 K/mm3 (1.3-6.7); Neutrophils Percent Auto 74.1 % (45.5-73.1); Platelet Count Result 334 k/mm3 (150-375); Red Blood Count 3.36 M/mm3 (4.2-5.4); Red Cell Distribution Width 12.2 % (11.5-14.5); White Blood Count 11.3 K/mm3 (4.5-10.0)
[2023-04-22 08:22] LABS: Alanine Aminotransferase 20 U/L (6-35); Albumin Level 3.1 g/dL (3.5-5.1); Alkaline Phosphatase 81 U/L (38-126); Anion Gap 7 mmol/L (8-16); Aspartate Amino Transferase 23 U/L (14-36); Bilirubin,Total 0.7 mg/dL (0.2-1.3); Blood Urea Nitrogen 15 mg/dL (7-17); Calcium 8.3 mg/dL (8.4-10.2); Carbon Dioxide 22 mmol/L (22-30); Chloride 99 mmol/L (98-107); Estimated CRCL calculation 59 ml/min; Estimated Glomerular Filt Rate > 60; Glucose 153 mg/dL (65-110); Potassium 2.9 mmol/L (3.4-5.0); Sodium 128 mmol/L (137-145)
[2023-04-22 08:47] LABS: Hemoglobin A1C 6.6 % (<5.7)
--- NOTE | 2023-04-22 09:02 | WPDNEUROSGCN ---
Assessment and Plan Assessment and plan (1) AMS (altered mental status): Code(s): R41.82 - Altered mental status, unspecified Status: Acute (2) Status post lumbar microdiscectomy: Code(s): Z98.890 - Other specified postprocedural states Status: Acute Plan Izabela Crook is a 77 year old female with PMH of Right L3-[address] Ignacio and more recently is POD # 9 s/p Redo L3-4 microdiscectomy on the left with left sided laminectomy complicated by durotomy by Dr. Wild on 04/13/2023. The patient was readmitted after her first surgery for severe left sided leg pain and urinary retention. The patient was discharged to Rehab/SNR on 04/16/2023 due to difficulty ambulating. Patient returned to the ED yesterday 04/21/2023 due to altered mental status and some drainage from the wound. UA done in the ED was +, and she was started on Ceftriaxone. Per the sister, her mental status has improved. - Mental Status seems to have improved with Abx - Recommend MRI LUmbar with and w/o contrast - Some drainage from the wound, no pus - No HAs - Some generalized weakness - Talked to the patient, , and her sister about her UTI and also about the wound. We all agree that rushing back to the operating room at this time is something that none of us want. - MRI to look at canal compromise, fascia, and to better evaluate the fluid collection - Incision was dressed with a pressure dressing - OK to eat today, make NPO after midnight Consult date: 04/22/23 Reason for consult: AMS, Leaking from Wound HPI: Izabela Crook is a 77 year old female with PMH of Right L3-[address] Ignacio and more recently is POD # 9 s/p Redo L3-4 microdiscectomy on the left with left sided laminectomy complicated by durotomy by Dr. Wild on 04/13/2023. The patient was readmitted after her first surgery for severe left sided leg pain and urinary retention. The patient was discharged to Rehab/SNR on 04/16/2023 due to difficulty ambulating. Patient returned to the ED yesterday 04/21/2023 due to altered mental status and some drainage from the wound. UA done in the ED was +, and she was started on Ceftriaxone. Per the sister, her mental status has improved. The patient continues to have back pain and right leg pain. The severe left leg pain that she had before her 2nd surgery appears to be better. A barrera catheter was replaced overnight for some urinary retention. CT Lumbar shows some air in the surgical bed as well as a fluid collection. Difficult to assess if there is cord compression. The wound is leaking some serosanguineous fluid from the inferior asepct of the wound. No pus. The patient denies any headaches. Denies positional HAs. [facility] Past Medical History Medical History (Updated 04/22/23 @ 05:25 by William Lee MD) Anxiety Essential hypertension Mixed hyperlipidemia Obesity (BMI 30.0-34.9) Papilloma of breast (~2013) Prediabetes Surgical History Surgical History (Updated 04/08/23 @ 15:33 by Haylee Wild MD) History of section Hx of cholecystectomy (~2005) Family History Family History Mother Carcinoma of colon Father Family history of coronary artery disease Other Family history of cardiovascular disease Social History Social History (Updated 04/06/23 @ 09:00 by Gauri Johnson DO) Social History: She lives with her of 55 years. Smoking status: Never smoker Second hand tobacco smoke exposure: No Alcohol intake: never Substance use: never Substance use type: does not use Lack of Transportation: No Lack of Food: Never True Current Housing: I Have Housing Concerned About Future Housing: No Difficulty Paying Gas/Electric Bills: No Difficulty Paying for Meds: No Currently Unemployed: No Education: High School Diploma/GED Difficulty w/ Childcare or Family Care: No
[2023-04-22 09:06] VITALS: BP 157/68; PULSE 92; O2SAT 98
[2023-04-22] MEDS: POTASSIUM CHLORIDE 20 MEQ ER TABLET 40 MEQ PO (09:08)
[2023-04-22] MEDS: SODIUM CHLORIDE 500 MG TABLET PO (09:09)
[2023-04-22] MEDS: GABAPENTIN 300 MG CAPSULE 600 MG PO ×3 (09:09→17:04)
[2023-04-22] MEDS: lisinopriL 10 MG TABLET PO (09:09)
[2023-04-22] MEDS: DOCUSATE SODIUM 100 MG CAPSULE PO ×2 (09:10→20:29)
[2023-04-22] MEDS: busPIRone HCL 5 MG TABLET 15 MG PO ×2 (09:10→20:28)
[2023-04-22 14:00] VITALS: BP 159/73; PULSE 90; RESP 16; TEMP 36.9; O2SAT 100
[2023-04-22] MEDS: ACETAMINOPHEN 500 MG TABLET 1000 MG PO (17:03)
[2023-04-22 19:45] VITALS: BP 141/67; PULSE 86; RESP 17; TEMP 36.2; O2SAT 96
[2023-04-22 20:00] VITALS: PULSE 86; RESP 17; O2SAT 96
[2023-04-22] MEDS: oxyCODONE HCL (*CRX) 5 MG TAB IR BY MOUTH (22:15)
[2023-04-23] VITALS (13 sets, daily range): BP systolic 117–185; BP diastolic 61–94; PULSE 78–108; RESP 12–20; TEMP 35.6–36.8; O2SAT 91–100
[2023-04-23] MEDS: CEFEPIME 1 GM/NS 50 ML 1 GM/50 ML BAG IVPB ×2 (00:40→15:28)
[2023-04-23 05:29] LABS: Basophils Percent Auto 0.4 % (0.2-1.2); Eosinophils Absolute Auto 0.2 K/mm3 (0-0.3); Eosinophils Percent Auto 3.2 % (0-4.4); Hematocrit 30.9 % (37.0-47.0); Hemoglobin 9.8 g/dL (12.0-15.0); Immature Granulocyte Absolute 0.07 K/mm3 (0.00-0.031); Immature Granulocyte Percent A 0.9 % (0-0.5); Lymphocytes Absolute Auto 1.27 K/mm3 (0.9-3.2); Lymphocytes Percent Auto 17.2 % (18.3-44.2); Mean Corpuscular HGB Conc 31.7 g/dl (32-36); Mean Corpuscular Hemoglobin 29.2 pg (26-34); Mean Platelet Volume 9.2 fl (7.4-10.4); Monocytes Absolute Auto 0.7 K/mm3 (0.1-0.6); Monocytes Percent Auto 8.9 % (2.6-8.5); Neutrophils Absolute Auto 5.1 K/mm3 (1.3-6.7); Neutrophils Percent Auto 69.4 % (45.5-73.1); Platelet Count Result 340 k/mm3 (150-375); Red Blood Count 3.36 M/mm3 (4.2-5.4); White Blood Count 7.4 K/mm3 (4.5-10.0)
[2023-04-23] MEDS: CYCLOBENZAPRINE HCL 10 MG TABLET PO ×2 (05:41→18:00)
[2023-04-23 05:53] LABS: Alanine Aminotransferase 24 U/L (6-35); Albumin Level 3.1 g/dL (3.5-5.1); Alkaline Phosphatase 79 U/L (38-126); Anion Gap 6 mmol/L (8-16); Aspartate Amino Transferase 23 U/L (14-36); Bilirubin,Total 0.6 mg/dL (0.2-1.3); Blood Urea Nitrogen 11 mg/dL (7-17); Calcium 8.7 mg/dL (8.4-10.2); Carbon Dioxide 29 mmol/L (22-30); Chloride 97 mmol/L (98-107); Estimated CRCL calculation 67 ml/min; Estimated Glomerular Filt Rate > 60; Glucose 131 mg/dL (65-110); Potassium 2.8 mmol/L (3.4-5.0); Sodium 132 mmol/L (137-145)
[2023-04-23] MEDS: LORazepam (*CRX) 0.5 MG TABLET PO (06:50)
--- NOTE | 2023-04-23 07:57 | P.PNIM_ITS ---
Progress Note: A&P Assessment and Plan (1) Urinary tract infection: Code(s): N39.0 - Urinary tract infection, site not specified Status: Acute Assessment and Plan: 04/21/23: * On broad-spectrum antibiotics * Await cultures 04/22/23: * UA? showed 2+ protein, positive nitrate, 3+ blood, 3+ leukocytes, 4+ bacteria * urine culture pending * continue with? IV antibiotic 04/23/23: * urine culture showing Gram-negative bacilli isolated on preliminary read * continue with IV antibiotics while awaiting final culture and sensitivities (2) Infected surgical wound: Code(s): T81.49XA - Infection following a procedure, other surgical site, initial encounter Status: Acute Assessment and Plan: 04/21/23: * Patient started on vancomycin and cefepime * Await cultures * Neurosurgery consult * CT of lumbar spine reviewed 04/22/23: * will obtain wound culture * neurosurgery following * white blood cell count down to 10.3 * blood cultures pending * continue IV cefepime and vancomycin * patient did have 1 g Rocephin in the ED x1 * continue to trend labs 04/23/23: * wound culture showing no growth * neurosurgery following * I and D of lumbar surgical wound performed today, OR dressing and surgical drain in place. * Blood cultures x2 showing no growth on preliminary read * continue cefepime and vancomycin IV * white blood cell count down to 7.4 * continue to trend labs (3) Status post lumbar microdiscectomy: Code(s): Z98.890 - Other specified postprocedural states Status: Acute Assessment and Plan: 04/21/23: * CT shows possible abscess formation 04/22/23: * see above (4) AMS (altered mental status): Code(s): R41.82 - Altered mental status, unspecified Status: Acute Assessment and Plan: 04/21/23: * Likely secondary to all of the above * Continue to monitor 04/22/23: * ?patient alert and oriented x4 today. * Head CT was negative for any acute intracranial process * plan for MRI of brain tomorrow around 6:45 a.m. 04/23/23: * MRI of brain results pending * patient remains alert and oriented x4 (5) Hypokalemia: Code(s): E87.6 - Hypokalemia Status: Acute Assessment and Plan: 04/23/2023: * potassium level today 2.8 * 80 mEq of potassium ordered for replacement * will continue to trend labs (6) Intractable back pain: Code(s): M54.9 - Dorsalgia, unspecified Status: Acute Assessment and Plan: 04/21/23: * Pain management 04/22/23: * ?continue Neurontin 600 mg t.i.d. * continue oxycodone 5-10 mg p.o. q.6 hours p.r.n. as first-line pain medication * continue with Dilaudid 0.5 mg IV q.4 hour p.r.n. as second-line pain? medication 04/23/23: * no change to current treatment plan (7) Generalized anxiety disorder: Code(s): F41.1 - Generalized anxiety disorder Status: Acute Assessment and Plan: 04/21/23: * Resume home meds as needed 04/22/23: * continue home medications 04/23/23: * no change to current treatment plan Time Spent With Patient Time with patient: Greater than 35 minutes Subjective Date/time seen: 04/23/23 07:57 Interval history: ?Interval Summary: 04/22/23: Patient is a 77-year-old female who is 9 days postop from a laminectomy of the lumbar spine.? Patient started noticing incisional pain at the surgical site with? purulent drain
--- NOTE | 2023-04-23 07:57 | PM.IMPN ---
Progress Note: A&P Assessment and Plan (1) Urinary tract infection: Code(s): N39.0 - Urinary tract infection, site not specified Status: Acute Assessment and Plan: 04/21/23: On broad-spectrum antibiotics Await cultures 04/22/23: UA? showed 2+ protein, positive nitrate, 3+ blood, 3+ leukocytes, 4+ bacteria urine culture pending continue with? IV antibiotic 04/23/23: urine culture showing Gram-negative bacilli isolated on preliminary read continue with IV antibiotics while awaiting final culture and sensitivities (2) Infected surgical wound: Code(s): T81.49XA - Infection following a procedure, other surgical site, initial encounter Status: Acute Assessment and Plan: 04/21/23: Patient started on vancomycin and cefepime Await cultures Neurosurgery consult CT of lumbar spine reviewed 04/22/23: will obtain wound culture neurosurgery following white blood cell count down to 10.3 blood cultures pending continue IV cefepime and vancomycin patient did have 1 g Rocephin in the ED x1 continue to trend labs 04/23/23: wound culture showing no growth neurosurgery following I and D of lumbar surgical wound performed today, OR dressing and surgical drain in place. Blood cultures x2 showing no growth on preliminary read continue cefepime and vancomycin IV white blood cell count down to 7.4 continue to trend labs (3) Status post lumbar microdiscectomy: Code(s): Z98.890 - Other specified postprocedural states Status: Acute Assessment and Plan: 04/21/23: CT shows possible abscess formation 04/22/23: see above (4) AMS (altered mental status): Code(s): R41.82 - Altered mental status, unspecified Status: Acute Assessment and Plan: 04/21/23: Likely secondary to all of the above Continue to monitor 04/22/23: ?patient alert and oriented x4 today. Head CT was negative for any acute intracranial process plan for MRI of brain tomorrow around 6:45 a.m. 04/23/23: MRI of brain results pending patient remains alert and oriented x4 (5) Hypokalemia: Code(s): E87.6 - Hypokalemia Status: Acute Assessment and Plan: 04/23/2023: potassium level today 2.8 80 mEq of potassium ordered for replacement will continue to trend labs (6) Intractable back pain: Code(s): M54.9 - Dorsalgia, unspecified Status: Acute Assessment and Plan: 04/21/23: Pain management 04/22/23: ?continue Neurontin 600 mg t.i.d. continue oxycodone 5-10 mg p.o. q.6 hours p.r.n. as first-line pain medication continue with Dilaudid 0.5 mg IV q.4 hour p.r.n. as second-line pain? medication 04/23/23: no change to current treatment plan (7) Generalized anxiety disorder: Code(s): F41.1 - Generalized anxiety disorder Status: Acute Assessment and Plan: 04/21/23: Resume home meds as needed 04/22/23: continue home medications 04/23/23: no change to current treatment plan Time Spent With Patient Time with patient: Greater than 35 minutes Subjective Date/time seen: 04/23/23 07:57 Interval history: ?Interval Summary: 04/22/23: Patient is a 77-year-old female who is 9 days postop from a laminectomy of the lumbar spine.? Patient started noticing incisional pain at the surgical site with? purulent drainage coming from the site.? She reported that her pain was excruciating 04/11 and was initially altered mental status in the ER. ? hospital workup included a CT of the lumbar spine which showed a possible abscess. ? neurosurgery was consulted and is following the patient.? I urinalysis was also performed which shown 2+ protein,? positive nitrates, 3+ blood, 3+ leukocytes, 4+ bacteria.? Blood and urine cultures were obtained and are pending.? Patient was given 1 g of Rocephin in the ED and switched to cefepime and vancomycin IV.? She also had a head CT which was ne
[2023-04-23] MEDS: POTASSIUM CHLORIDE INJ 40 MEQ in SODIUM CHLORIDE 0.9% IV 500 ML 130 MEQ IVPB ×2 (09:10→18:40)
[2023-04-23] MEDS: HYDROmorphone HCL INJ (*CRX) 1 MG/ML SYR 0.5 MG IV PUSH ×3 (09:11→22:05)
--- NOTE | 2023-04-23 10:41 | WPDNEUROSGPN ---
Progress Note: A&P Assessment and Plan (1) Infected surgical wound: Code(s): T81.49XA - Infection following a procedure, other surgical site, initial encounter Status: Acute Plan Izabela Crook is a 77 year old female with PMH of Right L3-[address] Ignacio and more recently is POD # 10 s/p Redo L3-4 microdiscectomy on the left with left sided laminectomy complicated by durotomy by Dr. Wild on 04/13/2023. The patient was readmitted after her first surgery for severe left sided leg pain and urinary retention. The patient was discharged to Rehab/SNR on 04/16/2023 due to difficulty ambulating. - Mental status improving with Abx - UTI being treated - Persistent wound drainage - MRI Lumbar shows that fluid collection tracks from skin all the way down to epidural space - Plan: OR today for wound revision with washout and possible CSF repair I explained to the patient, patient's daughter and sister, that the wound is not going to heal. I need to close the wound especially since the fluid collection tracks down to the epidural space. There is some enhancement that could be infection. Although she has a persistent right L3-4 disc herniation, I will not be attempting to remove this as there will be scar tissue and the patient now has a complete laminectomy at this level. I also think I need to take her to surgery just in case this fluid is possibly persistent CSF leak, in that case she is at high risk of meningitis The risks of surgery were explained to the patient and the family, including , stroke, GA, wound infection, wound breakdown, etc. The family agreed with surgery and signed the consent due to some AMS. Subjective Date/time seen: 04/23/23 10:41 Interval history: No acute events overnight. Mental status improving. Slightly groggy this AM. WBC improving. Dressing fully saturated this AM. MRI LUmbar with and w/o contrast shows fluid collection that tracks from epidural space all the way to skin. Either postop seroma vs persistent CSF leak. There is some enhancement in the anterior epidural space that could be infection. The patient has a persistent right sided L3-4 HNP, but a complete L3 laminectomy has been done now that allows for good decompression of this level. Since last MRI, the left L3-4 disc herniation has been removed, but continues to have right L3 and Right L3-4 lateral recess stenosis Exam Neuro: Other: Alert and oriented x 3 Motor: ?b/l UE: 5/5 - Left LE : IP 5/5 Q 4+/5, H 4+/5, DF/EHL 3/5, PF 5/5 - Right LE: IP 5/5 Q 4+/5, H 4+/5 DF/EHL 4+/5 PF 5/5 Sensory: intact to LT - Wilder catheter in Incision: Serosanguinous drainage from the inferior aspect of the incision ? Objective Data Vital Signs Vital Signs: Vital Signs - 24 hr 04/22/23 14:00 04/22/23 19:45 04/22/23 20:00 Temperature 36.9 C 36.2 C L Pulse Rate 90 86 86 Respiratory Rate 16 17 17 Blood Pressure 159/73 H 141/67 H Pulse Oximetry 100 96 96 Oxygen Delivery Room Air 04/23/23 04:09 Temperature 36.4 C Pulse Rate 79 Respiratory Rate 18 Blood Pressure 157/73 H Pulse Oximetry 98 Oxygen Delivery Intake/Output Intake/Output: Intake & Output 04/20/23 04/21/23 04/22/23 04/23/23 23:59 23:59 23:59 23:59 Intake Total 50 1040 Output Total 1650 1550 Balance 50 610 -1550 Meds/Results Medications: Active Medications Generic Name Dose Route Start Last Admin Trade Name Freq PRN Reason Stop Dose Admin Acetaminophen 1,000 mg 04/22/23 00:23 04/22/23 17:03 Acetaminophen 500 Mg Tablet PO 1,000 mg Q6H PRN Administration Mild Pain (1-3) Al Hydrox/Mg Hydrox/Simethicone 30 ml 04/22/23 00:24 Mag Hydrox/Al Hydrox/Simeth 30 Ml Udc PO Q6H PRN Indigestion Buspirone HCl 15 mg 04/22/23 09:00 04/22/23 20:28 Buspirone Hcl 5 Mg Tablet PO 15 mg Q12HR LORENA Administration Cyclobenzaprine HCl 10 mg 04/22/23 00:23 04/23/23 05:41 Cyclobenzaprine Hcl
--- NOTE | 2023-04-23 11:02 | WPDANESEPPF ---
Anes - Initial Pre Proc Eval Procedure: Operation Date: 04/23/23 11:00 Proposed Procedures p Incision and Drainage, Washout and Closure of Back Wound - Chepe Mackay MD Date/Time: 04/23/23 11:02 Surgeon: Eileen Romo DO Pre Op Diagnosis: Urinary Tract Infection,Altered Mental Status Patient Data Age: 77 Gender: F Height: 1.57 m Weight: 80 kg Last Vital Signs Temp 36.4 C 04/23/23 04:09 Pulse 79 04/23/23 04:09 Resp 18 04/23/23 04:09 BP 157/73 H 04/23/23 04:09 Pulse Ox 98 04/23/23 04:09 O2 Del Method Room Air 04/22/23 20:00 Allergies Allergy/AdvReac Type Severity Reaction Status Date / Time No Known Allergies Allergy Mild Verified 04/21/23 12:39 Home Medications Medication Instructions Recorded Confirmed Type buspirone 5 mg tablet 15 mg PO Q12HR #0 tabs 03/20/23 04/21/23 Rx cyclobenzaprine 10 mg tablet 10 mg PO TID PRN Muscle Spasms #0 03/20/23 04/21/23 Rx tabs paroxetine HCl 20 mg tablet 20 mg PO HS #0 tabs 03/20/23 04/21/23 Rx lisinopril 10 mg tablet 10 mg PO QAM #30 tabs 04/01/23 04/21/23 Rx saliva stimulant comb. no.3 1 spray PO Q8H PRN Dry Mouth #44.3 04/01/23 04/21/23 Rx (Biotene Moisturizing Mouth mL mucosal spray) ibuprofen 400 mg tablet 800 mg PO TID PRN PAIN 4-6 #60 tabs 04/03/23 04/21/23 Rx acetaminophen 500 mg tablet 1,000 mg PO Q6H PRN Mild Pain 04/15/23 04/21/23 Rx (1-3) #0 tabs docusate sodium 100 mg capsule 100 mg PO Q12HR #0 caps 04/15/23 04/21/23 Rx gabapentin 600 mg tablet 600 mg PO TID #30 tabs 04/15/23 04/21/23 Rx oxycodone 5 mg tablet See Rx Instructions .Route 04/15/23 04/21/23 Rx .COMPLEX PRN Pain, see instructions #60 tabs sennosides 8.6 mg-docusate sodium 1 tab PO DAILY PRN Constipation 04/21/23 04/21/23 History 50 mg tablet (Senokot-S) sodium chloride 1,000 mg soluble 500 mg PO DAILY 04/21/23 04/21/23 History tablet Laboratory Tests 04/23/23 05:07 WBC 7.4 K/mm3 (4.5-10.0) RBC 3.36 L M/mm3 (4.2-5.4) Hgb 9.8 L g/dL (12.0-15.0) Hct 30.9 L % (37.0-47.0) MCV 92.0 fl (80-100) MCH 29.2 pg (26-34) MCHC 31.7 L g/dl (32-36) RDW 12.0 % (11.5-14.5) Plt Count 340 k/mm3 (150-375) MPV 9.2 fl (7.4-10.4) Immature Gran % (Auto) 0.9 H % (0-0.5) Neut % (Auto) 69.4 % (45.5-73.1) Lymph % (Auto) 17.2 L % (18.3-44.2) Cherry % (Auto) 8.9 H % (2.6-8.5) Eos % (Auto) 3.2 % (0-4.4) Baso % (Auto) 0.4 % (0.2-1.2) Lymph # (Auto) 1.27 K/mm3 (0.9-3.2) Cherry # (Auto) 0.7 H K/mm3 (0.1-0.6) Eos # (Auto) 0.2 K/mm3 (0-0.3) Baso # (Auto) 0.0 K/mm3 (0.0-0.1) Abs Immat Gran (auto) 0.07 H K/mm3 (0.00-0.031) Absolute Neuts (auto) 5.1 K/mm3 (1.3-6.7) Absolute Nucleated RBC 0.0 K/mm3 (0.0-0.012) Nucleated RBC % 0.0 % (0.0-0.2) Sodium 132 L mmol/L (137-145) Potassium 2.8 L* mmol/L (3.4-5.0) Chloride 97 L mmol/L (98-107) Carbon Dioxide 29 mmol/L (22-30) Anion Gap 6 L mmol/L (8-16) BUN 11 mg/dL (7-17) Creatinine 0.60 L mg/dL (0.7-1.0) Estim Creat Clear Calc 67 ml/min Estimated GFR > 60 (59 - ) Glucose 131 H mg/dL (65-110) Calcium 8.7 mg/dL (8.4-10.2) Total Bilirubin 0.6 mg/dL (0.2-1.3) AST 23 U/L (14-36) ALT 24 U/L (6-35) Alkaline Phosphatase 79 U/L (38-126) Total Protein 6.0 L g/dL (6.3-8.2) Albumin 3.1 L g/dL (3.5-5.1) Patient hx anesthesia problems: none Family hx anesthesia problems: none Results Review: All pre-operative results and documents have been reviewed as part of the pre-operative evaluation. [facility] Past Medical History Medical History Anxiety Essential hypertension Mixed hyperlipidemia Obesity (BMI 30.0-34.9) Papilloma of breast (~2013) Prediabetes Surgical History Surgical History (Reviewed 04/23/23 @ 11:02 by Terrell Lopez,
--- NOTE | 2023-04-23 11:13 | PC.NURSE ---
To OR per bed. Report given to GEOVANNY Hughes.
[2023-04-23] MEDS: ceFAZolin SODIUM 1 GM VIAL 2 GM IV PUSH (11:24)
[2023-04-23] MEDS: VANCOMYCIN HCL 1,000 MG VIAL 1000 MG IRRIGATION (12:05)
[2023-04-23] MEDS: HEMOSTATIC MATRIX (SURGIFLO with THROMBIN) KIT 1 KIT XX (12:11)
[2023-04-23] MEDS: VANCOMYCIN HCL 1,000 MG VIAL 1000 MG TOPICAL (12:23)
[2023-04-23] MEDS: BACITRACIN OINTMENT 15 GM TUBE 1 APPLIC TOPICAL (12:31)
--- NOTE | 2023-04-23 12:55 | PM.OP ---
Procedure Note - Brief Procedure Note - Brief Date of procedure: 04/23/23 Wound Breakdown Procedure performed: Wound Washout and Wound Revision Surgeon: Chepe Mackay MD Findings: 1. Superficial and Deep fascial wound breakdown 2. No obvious pus 3. No CSF leak Description of procedure: Lumbar Wound Washout and Revision Urine output (mL): 200
--- NOTE | 2023-04-23 12:56 | P.OP_ITS ---
Procedure Note - Detailed Date of Procedure 04/23/23 Pre-op Diagnosis Wound Breakdown Post-op Diagnosis Same Procedure Performed 1. Wound Washout 2. Wound debridement 3. Wound Revision Surgeon Chepe Mackay MD [employer] LANNY Harris Anesthesia General Indications Lumbar Wound Breakdown Findings 1. Superficial and deep (fascial) Breakdown 2. No obvious Pus 3. No CSF leak Description of Procedure The patient was brought into the operating room and intubated on her bed. THe patient already had IV access and a barrera catheter placed. The patient was flipped prone onto a Min frame sitting on a Open Matt bed. All pressure points were padded. There was obvious drainage coming from the wound. The lumbar area was prepped and draped in sterile fashion. Timeout was performed. Incision was made with a 10 blade. There was fluid that came out after opening the wound. No obvious pus. Using a Liao scissors, I cut through the superficial sutures that were placed. I placed a retractor and the wound opened up very easily including the fascia. There was clear fascial breakdown. I then was able to open the rest of the muscle and fascia and was able to easily identify the previous laminectomy. I debrided some epidural tissue, but was able to get down to the dural blue glue that was left from the previous case. There was no obvious CSF leak. A valsalva maneuver was performed, and again there was no evidence of CSF seen. I then debrided the superficial tissue with a sr to get some fresh tissue and fresh bleeding. I then used a pulse lavage to irrigate the wound with 1 L of antibiotic solution (Vancomycin and Ancef). Once the wound was irrigated, hemostasis was achieved. Floseal was used for epidural hemostasis. The wound was washed out again with saline solution. We then started closing the wound in layers. The fascia was closed with 0 vicryl sutures. I then ran a 2-0 non popoff vicryl suture in brianna fascia. Once the fascia was closed, I then placed 500 mg of vancomycin powder in the suprafascial space. I then placed a suprafacial HV. I then closed the subdermal layers with 2-0 interupted vicryl sutures. I then closed the skin with julio. The wound was dressed with a sterile dressing. The drain was secured with a tegaderm. The counts were reported correct. There were no immediate complications. Estimated Blood Loss 25 (cc) Urine Output 200 Drains Yes
[2023-04-23] MEDS: LACTATED RINGERS 1,000 ML 30 ML IV CONT (13:04)
--- NOTE | 2023-04-23 13:08 | WPDHPUPDATE1 ---
History and Physical Update Update Date/Time: 04/23/23 13:08 History and Physical has been reviewed, including an updated exam of the patient. There are NO changes in the patient's condition. Risks, benefits, and alternatives have been discussed and questions answered. Patient agrees to proceed with procedure.
[2023-04-23] MEDS: fentaNYL CITRATE INJ (*CRX) 100 MCG/2 ML VIAL 25 MCG IV PUSH ×8 (13:39→13:56)
[2023-04-23] MEDS: HYDROmorphone HCL INJ (*CRX) 1 MG/ML SYR 0.25 MG IV PUSH (14:05)
--- NOTE | 2023-04-23 15:10 | PC.NURSE ---
Returned from OR per bed at 1436. Report received from GEOVANNY Ying.
[2023-04-23] MEDS: lisinopriL 10 MG TABLET PO (15:28)
[2023-04-23] MEDS: GABAPENTIN 300 MG CAPSULE 600 MG PO (16:06)
[2023-04-23] MEDS: oxyCODONE HCL (*CRX) 5 MG TAB IR BY MOUTH (18:00)
[2023-04-23] MEDS: busPIRone HCL 5 MG TABLET 15 MG PO (20:29)
[2023-04-23] MEDS: DOCUSATE SODIUM 100 MG CAPSULE PO (20:29)
[2023-04-23] MEDS: PARoxetine 20 MG TABLET PO (20:29)
[2023-04-24] VITALS (8 sets, daily range): BP systolic 119–144; BP diastolic 55–69; PULSE 75–101; RESP 14–18; TEMP 36.2–37.1; O2SAT 95–100
[2023-04-24] MEDS: CEFEPIME 1 GM/NS 50 ML 1 GM/50 ML BAG IVPB ×2 (00:18→12:29)
[2023-04-24] MEDS: CYCLOBENZAPRINE HCL 10 MG TABLET PO ×2 (02:22→08:39)
[2023-04-24] MEDS: oxyCODONE HCL (*CRX) 5 MG TAB IR BY MOUTH ×2 (02:22→08:38)
[2023-04-24 05:33] LABS: Basophils Percent Auto 0.3 % (0.2-1.2); Eosinophils Absolute Auto 0.2 K/mm3 (0-0.3); Eosinophils Percent Auto 2.2 % (0-4.4); Hematocrit 31.2 % (37.0-47.0); Hemoglobin 9.9 g/dL (12.0-15.0); Immature Granulocyte Absolute 0.09 K/mm3 (0.00-0.031); Immature Granulocyte Percent A 0.8 % (0-0.5); Lymphocytes Absolute Auto 1.02 K/mm3 (0.9-3.2); Lymphocytes Percent Auto 9.3 % (18.3-44.2); Mean Corpuscular HGB Conc 31.7 g/dl (32-36); Mean Corpuscular Hemoglobin 29.5 pg (26-34); Mean Corpuscular Volume 92.9 fl (80-100); Monocytes Absolute Auto 0.8 K/mm3 (0.1-0.6); Monocytes Percent Auto 6.9 % (2.6-8.5); Neutrophils Absolute Auto 8.8 K/mm3 (1.3-6.7); Neutrophils Percent Auto 80.5 % (45.5-73.1); Platelet Count Result 392 k/mm3 (150-375); Red Blood Count 3.36 M/mm3 (4.2-5.4); Red Cell Distribution Width 11.9 % (11.5-14.5)
[2023-04-24 05:48] LABS: Alanine Aminotransferase 24 U/L (6-35); Alkaline Phosphatase 85 U/L (38-126); Anion Gap 5 mmol/L (8-16); Aspartate Amino Transferase 25 U/L (14-36); Bilirubin,Total 0.5 mg/dL (0.2-1.3); Blood Urea Nitrogen 7 mg/dL (7-17); Calcium 8.4 mg/dL (8.4-10.2); Carbon Dioxide 25 mmol/L (22-30); Chloride 98 mmol/L (98-107); Estimated CRCL calculation 67 ml/min; Estimated Glomerular Filt Rate > 60; Glucose 171 mg/dL (65-110); Potassium 3.6 mmol/L (3.4-5.0); Sodium 128 mmol/L (137-145)
--- NOTE | 2023-04-24 07:25 | P.PNIM_ITS ---
Progress Note: A&P Assessment and Plan (1) Urinary tract infection: Code(s): N39.0 - Urinary tract infection, site not specified Status: Acute Assessment and Plan: 04/21/23: * On broad-spectrum antibiotics * Await cultures 04/22/23: * UA? showed 2+ protein, positive nitrate, 3+ blood, 3+ leukocytes, 4+ bacteria * urine culture pending * continue with? IV antibiotic 04/23/23: * urine culture showing Gram-negative bacilli isolated on preliminary read * continue with IV antibiotics while awaiting final culture and sensitivities 04/24/23: * Urine cultures still showing Gram-negative bacilli, awaiting final read with sensitivities * continue with IV antibiotics (2) Infected surgical wound: Code(s): T81.49XA - Infection following a procedure, other surgical site, initial encounter Status: Acute Assessment and Plan: 04/21/23: * Patient started on vancomycin and cefepime * Await cultures * Neurosurgery consult * CT of lumbar spine reviewed 04/22/23: * will obtain wound culture * neurosurgery following * white blood cell count down to 10.3 * blood cultures pending * continue IV cefepime and vancomycin * patient did have 1 g Rocephin in the ED x1 * continue to trend labs 04/23/23: * wound culture showing no growth * neurosurgery following * I and D of lumbar surgical wound performed today, OR dressing and surgical drain in place. 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 This may represent residual extrusion or residual extrusions sac. Developing abscess cannot be excluded. * Neurosurgery following * patient is postop day 1 from an I&D and debridement of her surgical wound, OR dressing and surgical drain in place * blood cultures x2 showing no growth to date * simple wound culture showing no growth to date * Aerobic and anaerobic cultures collected in the OR and are pending * slight bump in her white count today, 11.0 * will continue cefepime and vancomycin IV * continue to trend labs (3) Status post lumbar microdiscectomy: Code(s): Z98.890 - Other specified postprocedural states Status: Acute Assessment and Plan: 04/21/23: * CT shows possible abscess formation 04/22/23: * see above (4) AMS (altered mental status): Code(s): R41.82 - Altered mental status, unspecified Status: Acute Assessment and Plan: 04/21/23: * Likely secondary to all of the above * Continue to monitor 04/22/23: * ?patient alert and oriented x4 today. * Head CT was negative for any acute intracranial process * plan for MRI of brain tomorrow around 6:45 a.m. 04/23/23: * patient remains alert and oriented x4 04/24/23: * Minimally interactive today, did not sleep well overnight. Alert to stimulation however falls back to sleep. * Continue to monitor. * Will check apnea link for possible sleep apnea (5) Hypokalemia: Code(s): E87.6 - Hypokalemia S
--- NOTE | 2023-04-24 07:25 | PM.IMPN ---
Progress Note: A&P Assessment and Plan (1) Urinary tract infection: Code(s): N39.0 - Urinary tract infection, site not specified Status: Acute Assessment and Plan: 04/21/23: On broad-spectrum antibiotics Await cultures 04/22/23: UA? showed 2+ protein, positive nitrate, 3+ blood, 3+ leukocytes, 4+ bacteria urine culture pending continue with? IV antibiotic 04/23/23: urine culture showing Gram-negative bacilli isolated on preliminary read continue with IV antibiotics while awaiting final culture and sensitivities 04/24/23: Urine cultures still showing Gram-negative bacilli, awaiting final read with sensitivities continue with IV antibiotics (2) Infected surgical wound: Code(s): T81.49XA - Infection following a procedure, other surgical site, initial encounter Status: Acute Assessment and Plan: 04/21/23: Patient started on vancomycin and cefepime Await cultures Neurosurgery consult CT of lumbar spine reviewed 04/22/23: will obtain wound culture neurosurgery following white blood cell count down to 10.3 blood cultures pending continue IV cefepime and vancomycin patient did have 1 g Rocephin in the ED x1 continue to trend labs 04/23/23: wound culture showing no growth neurosurgery following I and D of lumbar surgical wound performed today, OR dressing and surgical drain in place. 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 This may represent residual extrusion or residual extrusions sac. Developing abscess cannot be excluded. Neurosurgery following patient is postop day 1 from an I&D and debridement of her surgical wound, OR dressing and surgical drain in place blood cultures x2 showing no growth to date simple wound culture showing no growth to date Aerobic and anaerobic cultures collected in the OR and are pending slight bump in her white count today, 11.0 will continue cefepime and vancomycin IV continue to trend labs (3) Status post lumbar microdiscectomy: Code(s): Z98.890 - Other specified postprocedural states Status: Acute Assessment and Plan: 04/21/23: CT shows possible abscess formation 04/22/23: see above (4) AMS (altered mental status): Code(s): R41.82 - Altered mental status, unspecified Status: Acute Assessment and Plan: 04/21/23: Likely secondary to all of the above Continue to monitor 04/22/23: ?patient alert and oriented x4 today. Head CT was negative for any acute intracranial process plan for MRI of brain tomorrow around 6:45 a.m. 04/23/23: patient remains alert and oriented x4 04/24/23: Minimally interactive today, did not sleep well overnight. Alert to stimulation however falls back to sleep. Continue to monitor. Will check apnea link for possible sleep apnea (5) Hypokalemia: Code(s): E87.6 - Hypokalemia Status: Acute Assessment and Plan: 04/23/2023: potassium level today 2.8 80 mEq of potassium ordered for replacement will continue to trend labs 04/24/23: Potassium level 3.8, no need for additional placement this time continue trending labs (6) Intractable back pain: Code(s): M54.9 - Dorsalgia, unspecified Status: Acute Assessment and Plan: 04/21/23: Pain management 04/22/23: ?continue Neurontin 600 mg t.i.d. continue oxycodone 5-10 mg
[2023-04-24] MEDS: GABAPENTIN 300 MG CAPSULE 600 MG PO ×3 (08:29→16:32)
[2023-04-24] MEDS: SODIUM CHLORIDE 500 MG TABLET PO (08:30)
[2023-04-24] MEDS: busPIRone HCL 5 MG TABLET 15 MG PO ×2 (08:30→20:23)
[2023-04-24] MEDS: DOCUSATE SODIUM 100 MG CAPSULE PO ×2 (08:30→20:23)
[2023-04-24] MEDS: lisinopriL 10 MG TABLET PO (08:30)
--- NOTE | 2023-04-24 09:30 | PCPTNOTE ---
Attempted PT evaluation, Per RN, Pt in a significant pain and suggested to wait on PT evaluation. Will follow.
--- NOTE | 2023-04-24 14:28 | WPDANESPN ---
Anes - Prog Note Post-Op Date/Time: 04/24/23 14:28 Vital Signs: Last Vital Signs Temp 36.4 C 04/24/23 11:20 Pulse 96 04/24/23 11:20 Resp 14 04/24/23 11:20 BP 124/64 04/24/23 11:20 Pulse Ox 97 04/24/23 11:20 O2 Del Method Room Air 04/24/23 13:03 O2 Flow Rate 8 04/23/23 13:30 FiO2 21 04/23/23 16:56 Pain Score (VAS): 2 I/O: Intake & Output 04/23/23 04/24/23 04/24/23 23:59 07:59 15:59 Intake Total 525 840 370 Output Total 850 400 Balance 525 -10 -30 Laboratory Tests 04/24/23 05:15 04/24/23 05:15 04/24/23 05:15 WBC 11.0 H RBC 3.36 L Hgb 9.9 L Hct 31.2 L MCV 92.9 MCH 29.5 MCHC 31.7 L RDW 11.9 Plt Count 392 H MPV 9.0 Immature Gran % (Auto) 0.8 H Neut % (Auto) 80.5 H Lymph % (Auto) 9.3 L Frederick % (Auto) 6.9 Eos % (Auto) 2.2 Baso % (Auto) 0.3 Lymph # (Auto) 1.02 Frederick # (Auto) 0.8 H Eos # (Auto) 0.2 Baso # (Auto) 0.0 Abs Immat Gran (auto) 0.09 H Absolute Neuts (auto) 8.8 H Absolute Nucleated RBC 0.0 Nucleated RBC % 0.0 Sodium 128 L Potassium 3.6 Chloride 98 Carbon Dioxide 25 Anion Gap 5 L BUN 7 Creatinine 0.60 L Estim Creat Clear Calc 67 Estimated GFR > 60 Glucose 171 H Calcium 8.4 Total Bilirubin 0.5 AST 25 ALT 24 Alkaline Phosphatase 85 Total Protein 6.0 L Albumin 3.0 L Microbiology 04/22/23 18:14 Abscess Wound Culture - Preliminary Enterobacter hormaechei 04/21/23 16:01 Urine Clean Catch Urine Culture - Final Enterobacter cloacae complex 04/23/23 11:56 Other Anaerobic Culture - Preliminary Patient Feedback: Patient satisfied with anesthetic care.
--- NOTE | 2023-04-24 15:08 | PC.NURSE ---
Assessment, care and medications performed by Vicki Valencia ANTONETTE Student RN under supervision of instructor and hospital staff. Assessment reviewed and agree with same.
[2023-04-24] MEDS: PARoxetine 20 MG TABLET PO (20:23)
[2023-04-25] VITALS (7 sets, daily range): BP systolic 127–148; BP diastolic 60–73; PULSE 90–100; RESP 14–16; TEMP 36.3–36.5; O2SAT 97–99
[2023-04-25] MEDS: CEFEPIME 1 GM/NS 50 ML 1 GM/50 ML BAG IVPB ×2 (00:10→12:59)
[2023-04-25 05:41] LABS: Basophils Percent Auto 0.3 % (0.2-1.2); Eosinophils Absolute Auto 0.4 K/mm3 (0-0.3); Eosinophils Percent Auto 5.1 % (0-4.4); Immature Granulocyte Absolute 0.09 K/mm3 (0.00-0.031); Immature Granulocyte Percent A 1.3 % (0-0.5); Lymphocytes Absolute Auto 1.14 K/mm3 (0.9-3.2); Lymphocytes Percent Auto 16.2 % (18.3-44.2); Mean Corpuscular HGB Conc 32.1 g/dl (32-36); Mean Corpuscular Hemoglobin 29.7 pg (26-34); Mean Corpuscular Volume 92.4 fl (80-100); Monocytes Absolute Auto 0.5 K/mm3 (0.1-0.6); Monocytes Percent Auto 7.3 % (2.6-8.5); Neutrophils Absolute Auto 4.9 K/mm3 (1.3-6.7); Neutrophils Percent Auto 69.8 % (45.5-73.1); Platelet Count Result 405 k/mm3 (150-375); Red Blood Count 3.03 M/mm3 (4.2-5.4); Red Cell Distribution Width 12.2 % (11.5-14.5)
[2023-04-25 06:08] LABS: Alanine Aminotransferase 20 U/L (6-35); Albumin Level 2.7 g/dL (3.5-5.1); Alkaline Phosphatase 74 U/L (38-126); Anion Gap 5 mmol/L (8-16); Aspartate Amino Transferase 18 U/L (14-36); Bilirubin,Total 0.4 mg/dL (0.2-1.3); Blood Urea Nitrogen 6 mg/dL (7-17); Calcium 8.4 mg/dL (8.4-10.2); Carbon Dioxide 28 mmol/L (22-30); Chloride 98 mmol/L (98-107); Estimated CRCL calculation 79 ml/min; Estimated Glomerular Filt Rate > 60; Glucose 188 mg/dL (65-110); Potassium 3.1 mmol/L (3.4-5.0); Sodium 131 mmol/L (137-145)
[2023-04-25] MEDS: POTASSIUM CHLORIDE 20 MEQ ER TABLET 40 MEQ PO (07:50)
--- NOTE | 2023-04-25 08:13 | P.PNIM_ITS ---
Progress Note: A&P Assessment and Plan (1) Urinary tract infection: Code(s): N39.0 - Urinary tract infection, site not specified Status: Acute Assessment and Plan: 04/21/23: * On broad-spectrum antibiotics * Await cultures 04/22/23: * UA? showed 2+ protein, positive nitrate, 3+ blood, 3+ leukocytes, 4+ bacteria * urine culture pending * continue with? IV antibiotic 04/23/23: * urine culture showing Gram-negative bacilli isolated on preliminary read * continue with IV antibiotics while awaiting final culture and sensitivities 04/24/23: * Urine cultures still showing Gram-negative bacilli, awaiting final read with sensitivities * continue with IV antibiotics 04/25/23: * Urine cultures showing Enterobacter cloacae complex on final read, sensitivities are back. Will discuss with ID pharmacist * Currently on Cefepime and Vancomycin * Will discontinue Wilder today in anticipation for discharge tomorrow (2) Infected surgical wound: Code(s): T81.49XA - Infection following a procedure, other surgical site, initial encounter Status: Acute Assessment and Plan: 04/21/23: * Patient started on vancomycin and cefepime * Await cultures * Neurosurgery consult * CT of lumbar spine reviewed 04/22/23: * will obtain wound culture * neurosurgery following * white blood cell count down to 10.3 * blood cultures pending * continue IV cefepime and vancomycin * patient did have 1 g Rocephin in the ED x1 * continue to trend labs 04/23/23: * wound culture showing no growth * neurosurgery following * I and D of lumbar surgical wound performed today, OR dressing and surgical drain in place. 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 This may represent residual extrusion or residual extrusions sac. Developing abscess cannot be excluded. * Neurosurgery following * patient is postop day 1 from an I&D and debridement of her surgical wound, OR dressing and surgical drain in place * blood cultures x2 showing no growth to date * simple wound culture showing no growth to date * Aerobic and anaerobic cultures collected in the OR and are pending * slight bump in her white count today, 11.0 * will continue cefepime and vancomycin IV * continue to trend labs 04/25/23: * Blood cultures showing no growth day 4 * Simple wound culture showing Enterobacter hormaechei with sensitivites back * Aerobic, and anaerobic cultures showing no growth so far * WBC now down to 7.0, absolute neutrophils 4.9 * Neurosurgery following * She is post op day 2 from I and D of her surgical spinal wound. * Continue to trend labs * Will touch base today with ID pharmacist about oral antibiotic coverage for when she goes home. (3) Status post lumbar microdiscectomy: Code(s): Z98.890 - Other specified postprocedural states Status: Acute Assessment and Plan: 04/21/23: * CT shows possible abscess formation 04/22/23: * see above (4) AMS (
--- NOTE | 2023-04-25 08:13 | PM.IMPN ---
Progress Note: A&P Assessment and Plan (1) Urinary tract infection: Code(s): N39.0 - Urinary tract infection, site not specified Status: Acute Assessment and Plan: 04/21/23: On broad-spectrum antibiotics Await cultures 04/22/23: UA? showed 2+ protein, positive nitrate, 3+ blood, 3+ leukocytes, 4+ bacteria urine culture pending continue with? IV antibiotic 04/23/23: urine culture showing Gram-negative bacilli isolated on preliminary read continue with IV antibiotics while awaiting final culture and sensitivities 04/24/23: Urine cultures still showing Gram-negative bacilli, awaiting final read with sensitivities continue with IV antibiotics 04/25/23: Urine cultures showing Enterobacter cloacae complex on final read, sensitivities are back. Will discuss with ID pharmacist Currently on Cefepime and Vancomycin Will discontinue Wilder today in anticipation for discharge tomorrow (2) Infected surgical wound: Code(s): T81.49XA - Infection following a procedure, other surgical site, initial encounter Status: Acute Assessment and Plan: 04/21/23: Patient started on vancomycin and cefepime Await cultures Neurosurgery consult CT of lumbar spine reviewed 04/22/23: will obtain wound culture neurosurgery following white blood cell count down to 10.3 blood cultures pending continue IV cefepime and vancomycin patient did have 1 g Rocephin in the ED x1 continue to trend labs 04/23/23: wound culture showing no growth neurosurgery following I and D of lumbar surgical wound performed today, OR dressing and surgical drain in place. 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 This may represent residual extrusion or residual extrusions sac. Developing abscess cannot be excluded. Neurosurgery following patient is postop day 1 from an I&D and debridement of her surgical wound, OR dressing and surgical drain in place blood cultures x2 showing no growth to date simple wound culture showing no growth to date Aerobic and anaerobic cultures collected in the OR and are pending slight bump in her white count today, 11.0 will continue cefepime and vancomycin IV continue to trend labs 04/25/23: Blood cultures showing no growth day 4 Simple wound culture showing Enterobacter hormaechei with sensitivites back Aerobic, and anaerobic cultures showing no growth so far WBC now down to 7.0, absolute neutrophils 4.9 Neurosurgery following She is post op day 2 from I and D of her surgical spinal wound. Continue to trend labs Will touch base today with ID pharmacist about oral antibiotic coverage for when she goes home. (3) Status post lumbar microdiscectomy: Code(s): Z98.890 - Other specified postprocedural states Status: Acute Assessment and Plan: 04/21/23: CT shows possible abscess formation 04/22/23: see above (4) AMS (altered mental status): Code(s): R41.82 - Altered mental status, unspecified Status: Acute Assessment and Plan: 04/21/23: Likely secondary to all of the above Continue to monitor 04/22/23: ?patient alert and oriented x4 today. Head CT was negative for any acute intracranial process plan for MRI of brain tomorrow around 6:45 a.m. 04/23/23: patient remains alert and oriented x4 04/24/23: Minimally interactive today, did not sleep we
[2023-04-25] MEDS: lisinopriL 10 MG TABLET PO (09:17)
[2023-04-25] MEDS: SODIUM CHLORIDE 500 MG TABLET PO (09:17)
[2023-04-25] MEDS: DOCUSATE SODIUM 100 MG CAPSULE PO ×2 (09:17→20:15)
[2023-04-25] MEDS: busPIRone HCL 5 MG TABLET 15 MG PO ×2 (09:17→20:15)
[2023-04-25] MEDS: GABAPENTIN 300 MG CAPSULE 600 MG PO ×3 (09:17→17:24)
--- NOTE | 2023-04-25 10:08 | PC.NURSE ---
On 04/25/23, the student, [Lovely Beasley], provided care and completed [facility] documentation on this patient. I have reviewed the student's documentation and agree with the findings.
--- NOTE | 2023-04-25 10:43 | ECG_ITS ---
Measurements Intervals [place] Rate: 99 P: 49 [place]: 150 QRS: 29 QRSD: 94 T: 14 QT: 327 QTc: 421 Interpretive Statements SINUS RHYTHM NORMAL EKG NO PREVIOUS ECG AVAILABLE FOR COMPARISON Electronically Signed On 04-25-2023 19:57:01 CDT by Damaris Chen M.D.
[2023-04-25] MEDS: levoFLOXacin 750 MG TABLET PO (13:59)
[2023-04-25] MEDS: PARoxetine 20 MG TABLET PO (20:16)
--- NOTE | 2023-04-25 22:15 | WPDNEUROSGPN ---
Progress Note: A&P Assessment and Plan (1) Infected surgical wound: Code(s): T81.49XA - Infection following a procedure, other surgical site, initial encounter Status: Acute Plan Izabela is doing well status post wound exploration for infection. She may continue with occupational and physical therapy and eventual discharge with antibiotics tailored to the sensitivities. Subjective Date/time seen: 04/25/23 22:15 Interval history: Izabela is postop day 2 status post are wound exploration for infection Rhonda. She is doing well reduced pain in her lower extremities and back. She is participating in physical therapy and has been ambulatory. She does not report new specific neurologic deficit. Her antibiotics have been tailored today based on the sensitivities. Exam Narrative: Strength is good in all muscle groups of the bilateral lower extremities. Sensation was intact to light touch the lower extremities. Wound is clean, dry and intact. Objective Data Vital Signs Vital Signs: Vital Signs - 24 hr 04/25/23 04:59 04/25/23 08:03 04/25/23 14:40 Temperature 97.7 F 97.4 F L Pulse Rate 90 92 Respiratory Rate 16 16 16 Blood Pressure 127/60 148/73 H Pulse Oximetry 98 98 99 Oxygen Delivery Room Air 04/25/23 14:12 04/25/23 20:00 04/25/23 21:32 Temperature 97.6 F Pulse Rate 100 Respiratory Rate 16 Blood Pressure 131/67 Pulse Oximetry 97 97 Oxygen Delivery Room Air Room Air Intake/Output Intake/Output: Intake & Output 04/22/23 04/23/23 04/24/23 04/25/23 23:59 23:59 23:59 23:59 Intake Total 1040 1325 1530 2220 Output Total 1650 1950 1950 2775 Balance -610 -625 -420 -555 Meds/Results Medications: Active Medications Generic Name Dose Route Start Last Admin Trade Name Freq PRN Reason Stop Dose Admin Acetaminophen 1,000 mg 04/22/23 00:23 04/22/23 17:03 Acetaminophen 500 Mg Tablet PO 1,000 mg Q6H PRN Administration Mild Pain (1-3) Al Hydrox/Mg Hydrox/Simethicone 30 ml 04/22/23 00:24 Mag Hydrox/Al Hydrox/Simeth 30 Ml Udc PO Q6H PRN Indigestion Buspirone HCl 15 mg 04/22/23 09:00 04/25/23 20:15 Buspirone Hcl 5 Mg Tablet PO 15 mg Q12HR [facility] Administration Cyclobenzaprine HCl 10 mg 04/22/23 00:23 04/24/23 08:39 Cyclobenzaprine Hcl 10 Mg Tablet PO 10 mg TID PRN Administration Muscle Spasms Docusate Sodium 100 mg 04/22/23 09:00 04/25/23 20:15 Docusate Sodium 100 Mg Capsule PO 100 mg Q12HR [facility] Administration Enoxaparin Sodium 40 mg 04/22/23 09:00 Enoxaparin 40 Mg/0.4 Ml Syringe SUB-Q DAILY [facility] Gabapentin 600 mg 04/22/23 09:00 04/25/23 17:24 Gabapentin 300 Mg Capsule PO 600 mg TID [facility] Administration Hydromorphone HCl 0.5 mg 04/21/23 22:43 04/23/23 22:05 Hydromorphone Hcl Inj (*Crx) 1 Mg/Ml Syr IV PUSH 0.5 mg Q4H PRN Administration Pain Rated 7-10 Levofloxacin 750 mg 04/25/23 14:00 04/25/23 13:59 Levofloxacin 750 Mg Tablet PO 750 mg DAILY@1400 [facility] Administration Lisinopril 10 mg 04/22/23 09:00 04/25/23 09:17 Lisinopril 10 Mg Tablet PO 10 mg QAM [facility] Administration Miconazole Nitrate 1 applic 04/22/23 09:00 04/25/23 20:16 Miconazole 2% Antifungal Ointment 56 Gm TOPICAL 1 applic Q12HR [facility] Administration Ondansetron HCl 4 mg 04/22/23 00:24 Ondansetron Inj 4 Mg/2 Ml Vial IV PUSH Q6H PRN Nausea And Vomiting Oxycodone HCl 5 mg 04/24/23 09:59 Oxycodone Hcl (*Crx) 5 Mg Tab Ir BY MOUTH Q4H PRN Pain 4-6 Oxycodone HCl 10 mg 04/24/23 10:06 Oxycodone Hcl (*Crx) 5 Mg Tab Ir BY MOUTH Q4H PRN Pain 7-10 Paroxetine HCl 20 mg 04/22/23 00:40 04/25/23 20:16 Paroxetine 20 Mg Tablet PO 20 mg HS [facility] Administration Polyethylene Glycol 17 gm 04/22/23 00:24 Polyethylene Glycol 3350 17 Gm Powd.Pack PO QAM PRN Constipation Saliva Substitute 15 ml 04/22/23 00:40 Saliva Subs
[2023-04-26 03:25] VITALS: PULSE 93; RESP 14; O2SAT 96
[2023-04-26 05:10] LABS: Basophils Absolute Auto 0.1 K/mm3 (0.0-0.1); Basophils Percent Auto 0.8 % (0.2-1.2); Eosinophils Absolute Auto 0.3 K/mm3 (0-0.3); Eosinophils Percent Auto 4.5 % (0-4.4); Hematocrit 30.7 % (37.0-47.0); Hemoglobin 9.5 g/dL (12.0-15.0); Immature Granulocyte Absolute 0.15 K/mm3 (0.00-0.031); Immature Granulocyte Percent A 2.1 % (0-0.5); Lymphocytes Absolute Auto 1.39 K/mm3 (0.9-3.2); Lymphocytes Percent Auto 19.6 % (18.3-44.2); Mean Corpuscular HGB Conc 30.9 g/dl (32-36); Mean Corpuscular Hemoglobin 29.2 pg (26-34); Mean Corpuscular Volume 94.5 fl (80-100); Mean Platelet Volume 9.1 fl (7.4-10.4); Monocytes Absolute Auto 0.7 K/mm3 (0.1-0.6); Monocytes Percent Auto 9.3 % (2.6-8.5); Neutrophils Absolute Auto 4.5 K/mm3 (1.3-6.7); Neutrophils Percent Auto 63.7 % (45.5-73.1); Platelet Count Result 432 k/mm3 (150-375); Red Blood Count 3.25 M/mm3 (4.2-5.4); Red Cell Distribution Width 12.2 % (11.5-14.5); White Blood Count 7.1 K/mm3 (4.5-10.0)
[2023-04-26 05:28] LABS: Alanine Aminotransferase 20 U/L (6-35); Albumin Level 2.8 g/dL (3.5-5.1); Alkaline Phosphatase 78 U/L (38-126); Anion Gap 7 mmol/L (8-16); Aspartate Amino Transferase 23 U/L (14-36); Bilirubin,Total 0.5 mg/dL (0.2-1.3); Blood Urea Nitrogen 5 mg/dL (7-17); Calcium 8.9 mg/dL (8.4-10.2); Carbon Dioxide 27 mmol/L (22-30); Chloride 100 mmol/L (98-107); Estimated CRCL calculation 67 ml/min; Estimated Glomerular Filt Rate > 60; Glucose 139 mg/dL (65-110); Potassium 3.8 mmol/L (3.4-5.0); Sodium 134 mmol/L (137-145)
[2023-04-26 05:46] VITALS: BP 137/74; PULSE 94; RESP 16; TEMP 36.7; O2SAT 97
[2023-04-26] MEDS: CYCLOBENZAPRINE HCL 10 MG TABLET PO ×2 (05:51→09:20)
[2023-04-26 08:00] VITALS: PULSE 94; RESP 16; O2SAT 97
[2023-04-26] MEDS: GABAPENTIN 300 MG CAPSULE 600 MG PO (09:16)
[2023-04-26] MEDS: lisinopriL 10 MG TABLET PO (09:16)
[2023-04-26] MEDS: SODIUM CHLORIDE 500 MG TABLET PO (09:16)
[2023-04-26] MEDS: DOCUSATE SODIUM 100 MG CAPSULE PO (09:16)
[2023-04-26] MEDS: oxyCODONE HCL (*CRX) 5 MG TAB IR BY MOUTH (09:20)
--- NOTE | 2023-04-26 10:08 | P.PNIM_ITS ---
Progress Note: A&P Assessment and Plan (1) Urinary tract infection: Code(s): N39.0 - Urinary tract infection, site not specified Status: Acute Assessment and Plan: 04/21/23: * On broad-spectrum antibiotics * Await cultures 04/22/23: * UA? showed 2+ protein, positive nitrate, 3+ blood, 3+ leukocytes, 4+ bacteria * urine culture pending * continue with? IV antibiotic 04/23/23: * urine culture showing Gram-negative bacilli isolated on preliminary read * continue with IV antibiotics while awaiting final culture and sensitivities 04/24/23: * Urine cultures still showing Gram-negative bacilli, awaiting final read with sensitivities * continue with IV antibiotics 04/25/23: * Urine cultures showing Enterobacter cloacae complex on final read, sensitivities are back. Will discuss with ID pharmacist * Currently on Cefepime and Vancomycin * Will discontinue Wilder today in anticipation for discharge tomorrow 04/26/23: * Urine cultures showing Enterobacter cloacae complex on final read, sensitiv ities are back. Will discuss with ID pharmacist * Lavaquin started 04/25, d/c IV vanc and cefepime * Wilder d/c, urinating on own to commode * may consider tamsulosin if continues to have urinary retention (2) Infected surgical wound: Code(s): T81.49XA - Infection following a procedure, other surgical site, initial encounter Status: Acute Assessment and Plan: 04/21/23: * Patient started on vancomycin and cefepime * Await cultures * Neurosurgery consult * CT of lumbar spine reviewed 04/22/23: * will obtain wound culture * neurosurgery following * white blood cell count down to 10.3 * blood cultures pending * continue IV cefepime and vancomycin * patient did have 1 g Rocephin in the ED x1 * continue to trend labs 04/23/23: * wound culture showing no growth * neurosurgery following * I and D of lumbar surgical wound performed today, OR dressing and surgical drain in place. 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 This may represent residual extrusion or residual extrusions sac. Developing abscess cannot be excluded. * Neurosurgery following * patient is postop day 1 from an I&D and debridement of her surgical wound, OR dressing and surgical drain in place * blood cultures x2 showing no growth to date * simple wound culture showing no growth to date * Aerobic and anaerobic cultures collected in the OR and are pending * slight bump in her white count today, 11.0 * will continue cefepime and vancomycin IV * continue to trend labs 04/25/23: * Blood cultures showing no growth day 4 * Simple wound culture showing Enterobacter hormaechei with sensitivites back * Aerobic, and anaerobic cultures showing no growth so far * WBC now down to 7.0, absolute neutrophils 4.9 * Neurosurgery following * She is post op day 2 from I and D of her surgical spinal wound. * Continue to trend labs * Will touch base today with ID pharmacist about oral antibiotic coverage for
--- NOTE | 2023-04-26 10:08 | PM.IMPN ---
Progress Note: A&P Assessment and Plan (1) Urinary tract infection: Code(s): N39.0 - Urinary tract infection, site not specified Status: Acute Assessment and Plan: 04/21/23: On broad-spectrum antibiotics Await cultures 04/22/23: UA? showed 2+ protein, positive nitrate, 3+ blood, 3+ leukocytes, 4+ bacteria urine culture pending continue with? IV antibiotic 04/23/23: urine culture showing Gram-negative bacilli isolated on preliminary read continue with IV antibiotics while awaiting final culture and sensitivities 04/24/23: Urine cultures still showing Gram-negative bacilli, awaiting final read with sensitivities continue with IV antibiotics 04/25/23: Urine cultures showing Enterobacter cloacae complex on final read, sensitivities are back. Will discuss with ID pharmacist Currently on Cefepime and Vancomycin Will discontinue Wilder today in anticipation for discharge tomorrow 04/26/23: Urine cultures showing Enterobacter cloacae complex on final read, sensitivities are back. Will discuss with ID pharmacist Lavaquin started 04/25, d/c IV vanc and cefepime Wilder d/c, urinating on own to commode may consider tamsulosin if continues to have urinary retention (2) Infected surgical wound: Code(s): T81.49XA - Infection following a procedure, other surgical site, initial encounter Status: Acute Assessment and Plan: 04/21/23: Patient started on vancomycin and cefepime Await cultures Neurosurgery consult CT of lumbar spine reviewed 04/22/23: will obtain wound culture neurosurgery following white blood cell count down to 10.3 blood cultures pending continue IV cefepime and vancomycin patient did have 1 g Rocephin in the ED x1 continue to trend labs 04/23/23: wound culture showing no growth neurosurgery following I and D of lumbar surgical wound performed today, OR dressing and surgical drain in place. 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 This may represent residual extrusion or residual extrusions sac. Developing abscess cannot be excluded. Neurosurgery following patient is postop day 1 from an I&D and debridement of her surgical wound, OR dressing and surgical drain in place blood cultures x2 showing no growth to date simple wound culture showing no growth to date Aerobic and anaerobic cultures collected in the OR and are pending slight bump in her white count today, 11.0 will continue cefepime and vancomycin IV continue to trend labs 04/25/23: Blood cultures showing no growth day 4 Simple wound culture showing Enterobacter hormaechei with sensitivites back Aerobic, and anaerobic cultures showing no growth so far WBC now down to 7.0, absolute neutrophils 4.9 Neurosurgery following She is post op day 2 from I and D of her surgical spinal wound. Continue to trend labs Will touch base today with ID pharmacist about oral antibiotic coverage for when she goes home. 04/26/23: Blood cultures showing no growth day 5 Simple wound culture showing Enterobacter hormaechei with sensitivites back Aerobic, and anaerobic cultures showing no growth so far WBC stablized Neurosurgery following She is post op day 3 from I and D of her surgical spinal wound. Continue to trend labs vanc and cefepime d/c, Levaquin started and will d/c with 7-10 day course (3) Status post lumbar microdiscect
[2023-04-26] MEDS: busPIRone HCL 5 MG TABLET 15 MG PO (12:28)
--- NOTE | 2023-04-26 12:49 | WPDNEUROSGPN ---
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 Her left leg pain is resolved. She was able to walk in the room today. Wilder catheter has been removed. She is hoping to discharge today back to [facility]. Review of Systems Review of Systems: All systems reviewed & are unremarkable except as noted in HPI and below Exam Narrative: Alert, oriented Full strength in lower extremities with exception of left dorsiflexion weakness which is stable Sensation intact to light touch Incision c/d/i with julio intact Objective Data Vital Signs Vital Signs: Vital Signs - 24 hr 04/25/23 14:40 04/25/23 14:12 04/25/23 20:00 Temperature 97.4 F L Pulse Rate 92 Respiratory Rate 16 Blood Pressure 148/73 H Pulse Oximetry 99 97 Oxygen Delivery Room Air Room Air Fraction of Inspired Oxygen 04/25/23 21:32 04/25/23 23:15 04/25/23 23:10 Temperature 97.6 F Pulse Rate 100 99 Respiratory Rate 16 14 Blood Pressure 131/67 Pulse Oximetry 97 97 97 Oxygen Delivery Autopap Room Air Fraction of Inspired Oxygen 04/26/23 03:25 04/26/23 05:46 04/26/23 08:00 Temperature 98.1 F Pulse Rate 93 94 94 Respiratory Rate 14 16 16 Blood Pressure 137/74 Pulse Oximetry 96 97 97 Oxygen Delivery Autopap Room Air Fraction of Inspired Oxygen 21 Intake/Output Intake/Output: Intake & Output 04/23/23 04/24/23 04/25/23 04/26/23 23:59 23:59 23:59 23:59 Intake Total 1325 1530 2220 390 Output Total 3782 1950 2775 55 Rbsyhlv -272 -420 -555 335 Meds/Results Medications: Active Medications Generic Name Dose Route Start Last Admin Trade Name Freq PRN Reason Stop Dose Admin Acetaminophen 1,000 mg 04/22/23 00:23 04/22/23 17:03 Acetaminophen 500 Mg Tablet PO 1,000 mg Q6H PRN Administration Mild Pain (1-3) Al Hydrox/Mg Hydrox/Simethicone 30 ml 04/22/23 00:24 Mag Hydrox/Al Hydrox/Simeth 30 Ml Udc PO Q6H PRN Indigestion Buspirone HCl 15 mg 04/22/23 09:00 04/26/23 12:28 Buspirone Hcl 5 Mg Tablet PO 15 mg Q12HR LORENA Administration Cyclobenzaprine HCl 10 mg 04/22/23 00:23 04/26/23 09:20 Cyclobenzaprine Hcl 10 Mg Tablet PO 10 mg TID PRN Administration Muscle Spasms Docusate Sodium 100 mg 04/22/23 09:00 04/26/23 09:16 Docusate Sodium 100 Mg Capsule PO 100 mg Q12HR LORENA Administration Enoxaparin Sodium 40 mg 04/22/23 09:00 Enoxaparin 40 Mg/0.4 Ml Syringe SUB-Q DAILY [facility] Gabapentin 600 mg 04/22/23 09:00 04/26/23 09:16 Gabapentin 300 Mg Capsule PO 600 mg TID LORENA Administration Hydromorphone HCl 0.5 mg 04/21/23 22:43 04/23/23 22:05 Hydromorphone Hcl Inj (*Crx) 1 Mg/Ml Syr IV PUSH 0.5 mg Q4H PRN Administration Pain Rated 7-10 Levofloxacin 750 mg 04/25/23 14:00 04/25/23 13:59 Levofloxacin 750 Mg Tablet PO 750 mg DAILY@1400 LORENA Administration Lisinopril 10 mg 04/22/23 09:00 04/26/23 09:16 Lisinopril 10 Mg Tablet PO 10 mg QAM LORENA Administration Miconazole Nitrate 1 applic 04/22/23 09:00 04/26/23 09:16 Miconazole 2% Antifungal Ointment 56 Gm TOPICAL 1 applic Q12HR LORENA Administration Ondansetron HCl 4 mg 04/22/23 00:24
--- NOTE | 2023-04-26 14:03 | P.DS_ITS ---
DS: Admitting Diagnosis Discharge Date 04/26/23 Admitting Diagnosis altered mental status DS: Discharge Diagnosis Discharge Diagnosis (1) Urinary tract infection: Code(s): N39.0 - Urinary tract infection, site not specified Status: Acute Assessment and Plan: * Urine cultures showing Enterobacter cloacae complex on final read, sensitivities are back. Will discuss with ID pharmacist * Lavaquin started 04/25, d/c IV vanc and cefepime * Wilder d/c, urinating on own to commode * may consider tamsulosin if continues to have urinary retention (2) Infected surgical wound: Code(s): T81.49XA - Infection following a procedure, other surgical site, initial encounter Status: Acute Assessment and Plan: 04/21/23: * Patient started on vancomycin and cefepime * Await cultures * Neurosurgery consult * CT of lumbar spine reviewed 04/22/23: * will obtain wound culture * neurosurgery following * white blood cell count down to 10.3 * blood cultures pending * continue IV cefepime and vancomycin * patient did have 1 g Rocephin in the ED x1 * continue to trend labs 04/23/23: * wound culture showing no growth * neurosurgery following * I and D of lumbar surgical wound performed today, OR dressing and surgical drain in place. 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 This may represent residual extrusion or residual extrusions sac. Developing abscess cannot be excluded. * Neurosurgery following * patient is postop day 1 from an I&D and debridement of her surgical wound, OR dressing and surgical drain in place * blood cultures x2 showing no growth to date * simple wound culture showing no growth to date * Aerobic and anaerobic cultures collected in the OR and are pending * slight bump in her white count today, 11.0 * will continue cefepime and vancomycin IV * continue to trend labs 04/25/23: * Blood cultures showing no growth day 4 * Simple wound culture showing Enterobacter hormaechei with sensitivites back * Aerobic, and anaerobic cultures showing no growth so far * WBC now down to 7.0, absolute neutrophils 4.9 * Neurosurgery following * She is post op day 2 from I and D of her surgical spinal wound. * Continue to trend labs * Will touch base today with ID pharmacist about oral antibiotic coverage for when she goes home. 04/26/23: * Blood cultures showing no growth day 5 * Simple wound culture showing Enterobacter hormaechei with sensitivites back * Aerobic, and anaerobic cultures showing no growth so far * WBC stablized * Neurosurgery following * She is post op day 3 from I and D of her surgical spinal wound. * Continue to trend labs * vanc and cefepime d/c, Levaquin started and will d/c with 7-10 day course (3) Status post lumbar microdiscectomy: Code(s): Z98.890 - Other specified postprocedural states Status: Acute Assessment and Plan: 04/21/23: * CT shows possible abscess formation 04/26/23: * see above
--- NOTE | 2023-04-26 14:03 | PM.DS ---
DS: Admitting Diagnosis Discharge Date 04/26/23 Admitting Diagnosis altered mental status DS: Discharge Diagnosis Discharge Diagnosis (1) Urinary tract infection: Code(s): N39.0 - Urinary tract infection, site not specified Status: Acute Assessment and Plan: Urine cultures showing Enterobacter cloacae complex on final read, sensitivities are back. Will discuss with ID pharmacist Lavaquin started 04/25, d/c IV vanc and cefepime Wilder d/c, urinating on own to commode may consider tamsulosin if continues to have urinary retention (2) Infected surgical wound: Code(s): T81.49XA - Infection following a procedure, other surgical site, initial encounter Status: Acute Assessment and Plan: 04/21/23: Patient started on vancomycin and cefepime Await cultures Neurosurgery consult CT of lumbar spine reviewed 04/22/23: will obtain wound culture neurosurgery following white blood cell count down to 10.3 blood cultures pending continue IV cefepime and vancomycin patient did have 1 g Rocephin in the ED x1 continue to trend labs 04/23/23: wound culture showing no growth neurosurgery following I and D of lumbar surgical wound performed today, OR dressing and surgical drain in place. 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 This may represent residual extrusion or residual extrusions sac. Developing abscess cannot be excluded. Neurosurgery following patient is postop day 1 from an I&D and debridement of her surgical wound, OR dressing and surgical drain in place blood cultures x2 showing no growth to date simple wound culture showing no growth to date Aerobic and anaerobic cultures collected in the OR and are pending slight bump in her white count today, 11.0 will continue cefepime and vancomycin IV continue to trend labs 04/25/23: Blood cultures showing no growth day 4 Simple wound culture showing Enterobacter hormaechei with sensitivites back Aerobic, and anaerobic cultures showing no growth so far WBC now down to 7.0, absolute neutrophils 4.9 Neurosurgery following She is post op day 2 from I and D of her surgical spinal wound. Continue to trend labs Will touch base today with ID pharmacist about oral antibiotic coverage for when she goes home. 04/26/23: Blood cultures showing no growth day 5 Simple wound culture showing Enterobacter hormaechei with sensitivites back Aerobic, and anaerobic cultures showing no growth so far WBC stablized Neurosurgery following She is post op day 3 from I and D of her surgical spinal wound. Continue to trend labs vanc and cefepime d/c, Levaquin started and will d/c with 7-10 day course (3) Status post lumbar microdiscectomy: Code(s): Z98.890 - Other specified postprocedural states Status: Acute Assessment and Plan: 04/21/23: CT shows possible abscess formation 04/26/23: see above (4) AMS (altered mental status): Code(s): R41.82 - Altered mental status, unspecified Status: Acute Assessment and Plan: 04/21/23: Likely secondary to all of the above Continue to monitor 04/22/23: ?patient alert and oriented x4 today. Head CT was negative for any acute intracranial process plan for MRI of brain tomorrow around 6:45 a.m. 04/23/23: patient remains alert and oriented x4 04/24/23: Minimally interactive to
[2023-04-26 16:48] LABS: SARS-CoV-2 RNA PCR Negative (Negative)
== END 2023-04-26 17:10 | DRG 907 ==
LOC: ANHED 19:45 → ANH2MED 20:17
PROVIDERS: Internal Medicine; Neurological Surgery; Nurse Practitioner Acute Care; Admitting Provider Student in an Organized Health Care Education/Training Program; Emergency Provider Emergency Medicine; PCP Family Medicine; Visit Provider Nurse Practitioner
PROC: 00CU0ZZ Extirpation of Matter from Spinal Canal, Open Approach (ICD-10-PCS; principal; 2023-04-23 11:00)
DX: T81.32XA Disruption of internal operation (surgical) wound, not elsewhere classified, initial encounter (principal); G06.1 Intraspinal abscess and granuloma; N39.0 Urinary tract infection, site not specified; T81.42XA Infection following a procedure, deep incisional surgical site, initial encounter; B96.89 Other specified bacterial agents as the cause of diseases classified elsewhere; E87.6 Hypokalemia; M54.9 Dorsalgia, unspecified; F41.1 Generalized anxiety disorder; Z20.822 Contact with and (suspected) exposure to COVID-19; E78.2 Mixed hyperlipidemia; R41.82 Altered mental status, unspecified; R73.03 Prediabetes; I10 Essential (primary) hypertension; G47.33 Obstructive sleep apnea (adult) (pediatric); R33.8 Other retention of urine; E66.9 Obesity, unspecified; Z68.32 Body mass index [BMI] 32.0-32.9, adult; Z90.49 Acquired absence of other specified parts of digestive tract; Z98.890 Other specified postprocedural states
CPT/HCPCS: 36415; 70450; 72132; 72158; 80053; 80202; 81001; 83036; 83605; 83735; 85025; 85055; 85610; 85730; 87040; 87070; 87075; 87077; 87086; 87186; 87205; 87635; 87637; 93005; 94660; 94762; 96365; 96375; 97110; 97161; 97165; 97530; 97535; 99285; A9270; A9577; G0378; J0330; J0690; J0692; J0696; J1170; J2405; J2704; J3010; J3370; J3480; J7030; J7040; J7120; Q9967